=== PATIENT | female | born 1945 | race Two or more races ===

== ENCOUNTER 2016-09-27 07:24 | Emergency (ER) | payer OTHER ==
[~2016-09-27] VITALS: Ht 160 cm; Wt 84.1 kg
[~2016-09-27 07:24] MED LIST: ALB5IS NEB; Alprazolam PO; BENZ100C97 PO; GABA-339 PO; IPRA0.035; LEV500T PO; MELO-86 PO; METH4PAK PO; PANT1INJ3 PO; PROM25TA5 PO; ZOLP10TA6
[2016-09-27] MEDS ORDERED: traMADol HCL 50 MG TAB PO ONE (10:45)
[2016-09-27] MEDS ORDERED: KETOROLAC TROMETH 30 MG/ML 1ML VIAL IM ONE (10:45)
[2016-09-27 10:56] VITALS: BP 143/74
== END 2016-09-27 11:18 | disposition home or self-care (01) ==
LOC: ER 07:24
DX: G89.29 Other chronic pain (principal); M54.5 Low back pain; Z88.6 Allergy status to analgesic agent; Z87.891 Personal history of nicotine dependence
CPT/HCPCS: 96372; 99283; J1885

== ENCOUNTER 2017-04-10 16:23 | Emergency (ER) | payer OTHER ==
[~2017-04-10] VITALS: Ht 160 cm; Wt 79.8 kg
[2017-04-10 16:31] VITALS: BP 133/72
[2017-04-10] MEDS ORDERED: PROMETHAZINE HCL 25 MG/ML 1ML IM ONE (17:15)
[2017-04-10] MEDS ORDERED: MEPERIDINE HCL (50 MG/ML) 1 ML VIAL IM ONE (17:15)
== END 2017-04-10 18:02 | disposition home or self-care (01) ==
LOC: ER 16:26
DX: G89.29 Other chronic pain (principal); M54.5 Low back pain; Z79.899 Other long term (current) drug therapy; Z88.8 Allergy status to other drugs, medicaments and biological substances; I10 Essential (primary) hypertension; Z87.891 Personal history of nicotine dependence
CPT/HCPCS: 93005; 96372; 99284; J2175; J2550

== ENCOUNTER 2017-07-09 13:16 | Emergency (ER) | payer OTHER ==
[~2017-07-09] VITALS: Ht 160 cm; Wt 77.1 kg
[~2017-07-09 13:16] MED LIST changes: -MELO-86 PO; +MELO15TA4 PO
[2017-07-09 13:27] VITALS: BP 125/65
[2017-07-09] MEDS ORDERED: KETOROLAC TROMETH 60MG/2ML VIAL IM ONE (14:45)
== END 2017-07-09 15:02 | disposition home or self-care (01) ==
LOC: ER 13:16
DX: G89.29 Other chronic pain (principal); M54.5 Low back pain; I10 Essential (primary) hypertension; Z88.6 Allergy status to analgesic agent; Z87.891 Personal history of nicotine dependence
CPT/HCPCS: 96372; 99283; J1885

== ENCOUNTER 2017-08-30 10:59 | Emergency (ER) | payer OTHER ==
[~2017-08-30] VITALS: Ht 160 cm; Wt 81.6 kg
[2017-08-30 11:40] VITALS: BP 107/70
[2017-08-30] MEDS ORDERED: PROMETHAZINE HCL 25 MG/ML 1ML IM ONE (12:30)
[2017-08-30] MEDS ORDERED: MEPERIDINE HCL (50 MG/ML) 1 ML VIAL IM ONE (12:30)
== END 2017-08-30 13:07 | disposition home or self-care (01) ==
LOC: ER 10:59
DX: G89.29 Other chronic pain (principal); M54.5 Low back pain; I10 Essential (primary) hypertension; Z98.51 Tubal ligation status; Z87.891 Personal history of nicotine dependence; Z88.6 Allergy status to analgesic agent
CPT/HCPCS: 93005; 96372; 99284; J2175; J2550

== ENCOUNTER 2017-11-02 08:02 | Observation (INO) | payer OTHER ==
[~2017-11-02] VITALS: Ht 160 cm; Wt 74.4 kg
[~2017-11-02 08:02] MED LIST changes: -MELO15TA4 PO; +MELO1TAB56 PO
[2017-11-02 08:35] LABS: Basophils # (auto) 0 uL; Basophils % (auto) 0.4 % (0.0-2.0); Eosinophils # (auto) 0 uL; Hematocrit 45.4 % (36.0-46.0); Hemoglobin 14.7 g/dL (12.2-16.2); Lymphocytes # (auto) 1.5 uL; Lymphocytes % (auto) 41.7 % (10.0-50.0); Mean Corpuscular Hemoglobin 28.7 pg (28.0-32.0); Mean Corpuscular Hgb Conc. 32.4 g/dL (32.0-36.0); Mean Corpuscular Volume 88.5 fL (80.0-100.0); Monocytes # (auto) 0.3 uL; Neutrophils # (auto) 1.7 uL; Neutrophils % (auto) 47.9 % (37.0-80.0); Nucleated Red Blood Cells % 0.7 %; Platelet Count (auto) 233 10^3/uL (140-450); Red Blood Cells 5.13 10^6/uL (4.0-5.20); Red Cell Distribution Width 14.7 % (11.8-14.3); White Blood Cell 3.5 10^3/uL (4.4-10.8)
[2017-11-02 08:46] LABS: Alanine Aminotransferase 17 U/L (13-56); Albumin 4.2 g/dL (3.4-5.0); Amylase 35 U/L (25-115); Anion Gap 11 (5-15); Aspartate Aminotransferase 17 U/L (15-37); Blood Urea Nitrogen 9 mg/dL (7-18); Calcium 9.3 mg/dL (8.5-10.1); Carbon Dioxide 22 mmol/L (21-32); Chloride 106 mmol/L (98-107); GFR African American 108 mL/min; GFR Non-African American 89 mL/min; Glucose 89 mg/dL (74-106); Lipase 107 U/L (73-393); Potassium 3.6 mmol/L (3.5-5.1); Sodium 139 mmol/L (136-145)
[2017-11-02 08:51] LABS: Alkaline Phosphatase 76 U/L (45-117); Bilirubin, Total 0.9 mg/dL (0.2-1.0); Total Protein 8.3 g/dL (6.4-8.2)
[2017-11-02 10:23] LABS: Urine Bacteria FEW /hpf (None Seen); Urine Blood Negative /uL (Negative); Urine Specific Gravity 1.006 (1.001-1.035); Urine WBC <1 /hpf (0 - 5)
[2017-11-02] MEDS ORDERED: SODIUM CHLORIDE 0.9% 1,000 ML IVB ONE (11:19)
[2017-11-02] MEDS ORDERED: ONDANSETRON HCL 4 MG/2 ML VIAL IV ONE (11:30)
[2017-11-02 12:08] LABS: INR 0.99 (0.9-1.15); Partial Thromboplastin Time 30.8 sec (22.64-33.71); Prothrombin Time 10.8 sec (9.37-12.3)
[2017-11-02 14:22] VITALS: BP 149/91
== END 2017-11-02 15:36 | disposition home or self-care (01) | DRG 392 ==
LOC: ER 08:02 → OVERFLOW 11:24 → ER 15:36
PROVIDERS: ADMIT Family Medicine; ATTEND Family Medicine
DX: K52.9 Noninfective gastroenteritis and colitis, unspecified (principal); I10 Essential (primary) hypertension; J45.909 Unspecified asthma, uncomplicated; K21.9 Gastro-esophageal reflux disease without esophagitis; Z87.891 Personal history of nicotine dependence
CPT/HCPCS: 36415; 71045; 74176; 80053; 81001; 82150; 83690; 83735; 84484; 85025; 85610; 85730; 93005; 96361; 96374; 99285; G0378; J2405

== ENCOUNTER 2018-01-08 06:07 | Inpatient (IN) | payer OTHER ==
[~2018-01-08] VITALS: Ht 160 cm; Wt 79.3 kg
[~2018-01-08 06:07] MED LIST changes: -ZOLP10TA6; +ZOLP10TA6 PO
[2018-01-08 08:04] LABS: Basophils # (auto) 0 uL; Eosinophils # (auto) 0.1 uL; Eosinophils % (auto) 2.4 % (0.0-7.0); Hematocrit 41.5 % (36.0-46.0); Hemoglobin 13.4 g/dL (12.2-16.2); Lymphocytes # (auto) 1.7 uL; Lymphocytes % (auto) 50.1 % (10.0-50.0); Mean Corpuscular Hemoglobin 28.8 pg (28.0-32.0); Mean Corpuscular Hgb Conc. 32.4 g/dL (32.0-36.0); Mean Corpuscular Volume 89.1 fL (80.0-100.0); Monocytes # (auto) 0.3 uL; Monocytes % (auto) 9.8 % (0.0-12.0); Neutrophils # (auto) 1.2 uL; Neutrophils % (auto) 36.7 % (37.0-80.0); Nucleated Red Blood Cells % 0.1 %; Platelet Count (auto) 221 10^3/uL (140-450); Red Blood Cells 4.66 10^6/uL (4.0-5.20); Red Cell Distribution Width 14.3 % (11.8-14.3); White Blood Cell 3.4 10^3/uL (4.4-10.8)
[2018-01-08 08:27] LABS: INR 0.98 (0.9-1.15); Prothrombin Time 10.7 sec (9.37-12.3)
[2018-01-08 08:29] LABS: Alanine Aminotransferase 17 U/L (13-56); Albumin 3.8 g/dL (3.4-5.0); Alkaline Phosphatase 73 U/L (45-117); Amylase 36 U/L (25-115); Anion Gap 10 (5-15); Aspartate Aminotransferase 14 U/L (15-37); BUN/Creatinine Ratio 10.3; Bilirubin, Total 0.7 mg/dL (0.2-1.0); Blood Urea Nitrogen 8 mg/dL (7-18); Calcium 9.2 mg/dL (8.5-10.1); Carbon Dioxide 24 mmol/L (21-32); Chloride 109 mmol/L (98-107); GFR African American 94 mL/min; GFR Non-African American 77 mL/min; Glucose 80 mg/dL (74-106); Lipase 94 U/L (73-393); Potassium 3.6 mmol/L (3.5-5.1); Sodium 143 mmol/L (136-145); Total Protein 7.7 g/dL (6.4-8.2)
[2018-01-08] MEDS ORDERED: SODIUM CHLORIDE 0.9% 1,000 ML IV ONE (10:57)
[2018-01-08] MEDS ORDERED: ONDANSETRON HCL 4 MG/2 ML VIAL IV ONE ×2 (11:00→15:00)
[2018-01-08] MEDS ORDERED: HYDROcodone-ACET 10/325MG TAB PO ONE (12:45)
[2018-01-08] MEDS ORDERED: MORPHINE SULFATE 8mg/ml INJ SDV IV ONE (15:00)
[2018-01-08] MEDS: FAMOTIDINE (10MG/ML) 2ML VL IV SCH (15:15)
[2018-01-08] MEDS ORDERED: MORPHINE SULFATE 8mg/ml INJ SDV IV PRN (15:15)
[2018-01-08] MEDS ORDERED: NITROGLYCERIN 0.4 MG SL TAB SL PRN (15:15)
[2018-01-08] MEDS ORDERED: LORazepam 0.5 MG TAB PO PRN (15:15)
[2018-01-08] MEDS: SODIUM CHLORIDE 0.9% 1,000 ML IV SCH (15:28)
[2018-01-08 15:41] LABS: Urine Bacteria FEW /hpf (None Seen); Urine Blood Negative /uL (Negative); Urine Mucus FEW (None Seen); Urine Specific Gravity 1.013 (1.001-1.035); Urine WBC 1 /hpf (0 - 5)
[2018-01-08 17:00] VITALS: BP 154/77
[2018-01-08] MEDS ORDERED: ALBU2TAB4 PO (18:18)
[2018-01-08] MEDS: TEMAZEPAM 15 MG CAP PO PRN (21:52)
[2018-01-08] MEDS: ACETAMINOPHEN 500 MG TAB PO PRN (22:45)
[2018-01-09] VITALS (7 sets, daily range): BP systolic 95–160; BP diastolic 55–92
[2018-01-09] MEDS: SODIUM CHLORIDE 0.9% 1,000 ML IV SCH ×3 (01:21→21:50)
[2018-01-09] MEDS: PROMETHAZINE HCL 25 MG/ML 1ML IV PRN ×4 (02:59→21:50)
[2018-01-09] MEDS: HYDROcodone-ACET 5/325MG TAB PO PRN (03:00)
[2018-01-09] MEDS: FAMOTIDINE (10MG/ML) 2ML VL IV SCH (03:00)
[2018-01-09 05:56] LABS: Basophils # (auto) 0 uL; Basophils % (auto) 0.9 % (0.0-2.0); Eosinophils # (auto) 0.1 uL; Eosinophils % (auto) 2.6 % (0.0-7.0); Hematocrit 40.1 % (36.0-46.0); Lymphocytes # (auto) 1.5 uL; Lymphocytes % (auto) 42.1 % (10.0-50.0); Mean Corpuscular Hemoglobin 29.4 pg (28.0-32.0); Mean Corpuscular Hgb Conc. 32.5 g/dL (32.0-36.0); Mean Corpuscular Volume 90.4 fL (80.0-100.0); Monocytes # (auto) 0.4 uL; Monocytes % (auto) 11.3 % (0.0-12.0); Neutrophils # (auto) 1.5 uL; Neutrophils % (auto) 43.1 % (37.0-80.0); Nucleated Red Blood Cells % 0.2 %; Platelet Count (auto) 186 10^3/uL (140-450); Red Blood Cells 4.43 10^6/uL (4.0-5.20); Red Cell Distribution Width 14.6 % (11.8-14.3); White Blood Cell 3.5 10^3/uL (4.4-10.8)
[2018-01-09 06:12] LABS: Amylase 28 U/L (25-115); Lipase 67 U/L (73-393)
[2018-01-09] MEDS: MORPHINE SULFATE 8mg/ml INJ SDV IV PRN (06:56)
[2018-01-09] MEDS ORDERED: IBUP400T21 PO (08:29)
[2018-01-09] MEDS ORDERED: LORA-655 PO (08:30)
[2018-01-09] MEDS ORDERED: METO-281 PO (08:31)
[2018-01-09] MEDS ORDERED: ATOR10TA PO (08:31)
[2018-01-09] MEDS: PANTOPRAZOLE 40 MG/10 ML VIAL IV SCH (21:50)
[2018-01-09] MEDS: TEMAZEPAM 15 MG CAP PO PRN (21:51)
[2018-01-10] MEDS: HYDROcodone-ACET 5/325MG TAB PO PRN (02:38)
[2018-01-10 04:59] VITALS: BP 138/69
[2018-01-10 06:44] LABS: Basophils # (auto) 0 uL; Basophils % (auto) 0.9 % (0.0-2.0); Eosinophils # (auto) 0.1 uL; Eosinophils % (auto) 3.5 % (0.0-7.0); Hematocrit 39.6 % (36.0-46.0); Hemoglobin 12.8 g/dL (12.2-16.2); Lymphocytes # (auto) 1.4 uL; Lymphocytes % (auto) 37.9 % (10.0-50.0); Mean Corpuscular Hemoglobin 29.3 pg (28.0-32.0); Mean Corpuscular Hgb Conc. 32.3 g/dL (32.0-36.0); Mean Corpuscular Volume 90.8 fL (80.0-100.0); Monocytes # (auto) 0.4 uL; Monocytes % (auto) 12.1 % (0.0-12.0); Neutrophils # (auto) 1.7 uL; Neutrophils % (auto) 45.6 % (37.0-80.0); Nucleated Red Blood Cells % 0.1 %; Platelet Count (auto) 171 10^3/uL (140-450); Red Blood Cells 4.36 10^6/uL (4.0-5.20); Red Cell Distribution Width 14.5 % (11.8-14.3); White Blood Cell 3.7 10^3/uL (4.4-10.8)
[2018-01-10 07:02] LABS: BUN/Creatinine Ratio 11.5; Potassium 3.3 mmol/L (3.5-5.1)
[2018-01-10 08:21] VITALS: BP 128/50
[2018-01-10] MEDS: POTASSIUM CHL 20 Meq TABLET PO SCH ×2 (11:06→22:36)
[2018-01-10] MEDS: PANTOPRAZOLE 40 MG/10 ML VIAL IV SCH ×2 (11:06→22:35)
[2018-01-10 12:41] VITALS: BP 134/89
[2018-01-10] MEDS: PROMETHAZINE HCL 25 MG/ML 1ML IV PRN (14:22)
[2018-01-10] MEDS: GABAPENTIN 300 MG CAP PO SCH ×2 (14:23→22:36)
[2018-01-10 16:32] VITALS: BP 159/94
[2018-01-10 22:00] VITALS: BP 105/56
[2018-01-10] MEDS: ATORVASTATIN 20 MG TAB PO SCH (22:37)
[2018-01-10] MEDS: TEMAZEPAM 15 MG CAP PO PRN (22:42)
[2018-01-11 05:00] VITALS: BP 114/67
[2018-01-11] MEDS: GABAPENTIN 300 MG CAP PO SCH ×3 (06:00→21:43)
[2018-01-11 07:08] LABS: Basophils # (auto) 0 uL; Basophils % (auto) 1.1 % (0.0-2.0); Eosinophils # (auto) 0.1 uL; Eosinophils % (auto) 3.8 % (0.0-7.0); Hematocrit 41.1 % (36.0-46.0); Hemoglobin 13.3 g/dL (12.2-16.2); Lymphocytes # (auto) 1.2 uL; Lymphocytes % (auto) 30.3 % (10.0-50.0); Mean Corpuscular Hemoglobin 29.4 pg (28.0-32.0); Mean Corpuscular Hgb Conc. 32.4 g/dL (32.0-36.0); Mean Corpuscular Volume 90.8 fL (80.0-100.0); Monocytes # (auto) 0.4 uL; Monocytes % (auto) 10.8 % (0.0-12.0); Neutrophils # (auto) 2.1 uL; Nucleated Red Blood Cells % 0.1 %; Platelet Count (auto) 175 10^3/uL (140-450); Red Blood Cells 4.52 10^6/uL (4.0-5.20); Red Cell Distribution Width 14.5 % (11.8-14.3); White Blood Cell 3.9 10^3/uL (4.4-10.8)
[2018-01-11 07:30] LABS: Calcium 8.7 mg/dL (8.5-10.1); Potassium 4.5 mmol/L (3.5-5.1)
[2018-01-11 08:11] VITALS: BP 125/72
[2018-01-11] MEDS: PANTOPRAZOLE 40 MG/10 ML VIAL IV SCH ×2 (10:22→21:43)
[2018-01-11] MEDS ORDERED: DOCUSATE SOD 100 MG CAP PO PRN (10:30)
[2018-01-11] MEDS: ACETAMINOPHEN 500 MG TAB PO PRN (11:01)
[2018-01-11 12:30] VITALS: BP 109/54
[2018-01-11 16:59] VITALS: BP 110/56
[2018-01-11] MEDS: ATORVASTATIN 20 MG TAB PO SCH (21:43)
[2018-01-11] MEDS: TEMAZEPAM 15 MG CAP PO PRN (21:43)
[2018-01-11 22:00] VITALS: BP 116/59
[2018-01-12] VITALS (7 sets, daily range): BP systolic 98–133; BP diastolic 54–86
[2018-01-12 06:18] LABS: Basophils # (auto) 0 uL; Basophils % (auto) 0.5 % (0.0-2.0); Eosinophils # (auto) 0.1 uL; Eosinophils % (auto) 3.6 % (0.0-7.0); Hematocrit 44.2 % (36.0-46.0); Hemoglobin 14.3 g/dL (12.2-16.2); Lymphocytes # (auto) 1.5 uL; Lymphocytes % (auto) 44.5 % (10.0-50.0); Mean Corpuscular Hemoglobin 29.5 pg (28.0-32.0); Mean Corpuscular Hgb Conc. 32.4 g/dL (32.0-36.0); Monocytes # (auto) 0.3 uL; Monocytes % (auto) 8.2 % (0.0-12.0); Neutrophils # (auto) 1.4 uL; Neutrophils % (auto) 43.2 % (37.0-80.0); Nucleated Red Blood Cells % 0.2 %; Platelet Count (auto) 199 10^3/uL (140-450); Red Blood Cells 4.85 10^6/uL (4.0-5.20); Red Cell Distribution Width 14.7 % (11.8-14.3); White Blood Cell 3.3 10^3/uL (4.4-10.8)
[2018-01-12] MEDS: GABAPENTIN 300 MG CAP PO SCH ×3 (06:23→22:22)
[2018-01-12 06:26] LABS: INR 0.94 (0.9-1.15); Partial Thromboplastin Time 27.1 sec (22.64-33.71); Prothrombin Time 10.2 sec (9.37-12.3)
[2018-01-12 06:37] LABS: BUN/Creatinine Ratio 15.2; Calcium 9.4 mg/dL (8.5-10.1); Potassium 4.3 mmol/L (3.5-5.1)
[2018-01-12] MEDS ORDERED: LIDOCAINE VISCOUS 2% 15ML UD ONE (08:16)
[2018-01-12] MEDS ORDERED: diphenhdrAMINE HCL 50 MG/1 ML VL ONE (08:17)
[2018-01-12] MEDS: PANTOPRAZOLE 40 MG/10 ML VIAL IV SCH (09:35)
[2018-01-12] MEDS: fentaNYL CITRATE 100 MCG/2 ML VL ONE ×2 (11:10→11:13)
[2018-01-12] MEDS: MIDAZOLAM HCL 5 MG/ML-1ML VIAL ONE ×2 (11:10→11:13)
[2018-01-12] MEDS: TEMAZEPAM 15 MG CAP PO PRN (22:22)
[2018-01-12] MEDS: ATORVASTATIN 20 MG TAB PO SCH (22:22)
[2018-01-12] MEDS: PROMETHAZINE HCL 25 MG/ML 1ML IV PRN (22:27)
[2018-01-13 04:34] VITALS: BP 115/65
[2018-01-13] MEDS: MORPHINE SULFATE 8mg/ml INJ SDV IV PRN (04:43)
[2018-01-13] MEDS: PROMETHAZINE HCL 25 MG/ML 1ML IV PRN (04:43)
[2018-01-13] MEDS: GABAPENTIN 300 MG CAP PO SCH (06:48)
[2018-01-13 08:00] VITALS: BP 97/61
[2018-01-13] MEDS: HYDROcodone-ACET 5/325MG TAB PO PRN (09:28)
[2018-01-13] MEDS ORDERED: PANTOPRAZOLE 40 MG TAB PO SCH (10:00)
[2018-01-13 12:15] VITALS: BP 96/54
== END 2018-01-13 13:41 | disposition home or self-care (01) | DRG 392 ==
LOC: ER 06:07 → TELE 06:08 → TELE-CENTR 16:19
PROVIDERS: ADMIT Internal Medicine; ATTEND Internal Medicine
PROC: 0DB68ZX Excision of Stomach, Via Natural or Artificial Opening Endoscopic, Diagnostic (ICD-10-PCS; principal; 2018-01-12 11:07)
DX: K31.84 Gastroparesis (principal); D72.819 Decreased white blood cell count, unspecified; F41.9 Anxiety disorder, unspecified; I10 Essential (primary) hypertension; J45.909 Unspecified asthma, uncomplicated; K21.9 Gastro-esophageal reflux disease without esophagitis; K29.70 Gastritis, unspecified, without bleeding; Z82.49 Family history of ischemic heart disease and other diseases of the circulatory system; Z98.51 Tubal ligation status; Z83.3 Family history of diabetes mellitus; Z87.891 Personal history of nicotine dependence; Z79.899 Other long term (current) drug therapy
CPT/HCPCS: 36415; 71045; 74176; 76705; 80048; 80053; 81001; 82150; 82378; 82962; 83690; 84484; 85025; 85610; 85652; 85730; 86141; 86677; 93005; 96361; 96367; 96374; 96375; C9113; J2250; J2270; J2405

== ENCOUNTER 2018-03-05 02:41 | Inpatient (IN) | payer OTHER ==
[~2018-03-05] VITALS: Ht 160 cm; Wt 75.1 kg
[~2018-03-05 02:41] MED LIST changes: -ALB5IS NEB; +ATOR10TA PO; -Alprazolam PO; -BENZ100C97 PO; +IBUP400T21 PO; -IPRA0.035; -LEV500T PO; +LORA-655 PO; -MELO1TAB56 PO; -METH4PAK PO; +METO-281 PO; -PANT1INJ3 PO; -PROM25TA5 PO
[2018-03-05 03:50] LABS: Basophils # (auto) 0 uL; Basophils % (auto) 0.7 % (0.0-2.0); Eosinophils # (auto) 0.1 uL; Eosinophils % (auto) 2.6 % (0.0-7.0); Hematocrit 40.8 % (36.0-46.0); Hemoglobin 13.3 g/dL (12.2-16.2); Lymphocytes # (auto) 1.4 uL; Lymphocytes % (auto) 40.4 % (10.0-50.0); Mean Corpuscular Hgb Conc. 32.6 g/dL (32.0-36.0); Mean Corpuscular Volume 88.9 fL (80.0-100.0); Monocytes # (auto) 0.4 uL; Neutrophils # (auto) 1.6 uL; Neutrophils % (auto) 45.3 % (37.0-80.0); Nucleated Red Blood Cells % 0.1 %; Platelet Count (auto) 233 10^3/uL (140-450); Red Blood Cells 4.59 10^6/uL (4.0-5.20); Red Cell Distribution Width 14.4 % (11.8-14.3); White Blood Cell 3.4 10^3/uL (4.4-10.8)
[2018-03-05 04:07] LABS: Alanine Aminotransferase 26 U/L (13-56); Albumin 3.5 g/dL (3.4-5.0); Amylase 27 U/L (25-115); Anion Gap 10 (5-15); Aspartate Aminotransferase 15 U/L (15-37); BUN/Creatinine Ratio 7.6; Blood Urea Nitrogen 7 mg/dL (7-18); Calcium 8.8 mg/dL (8.5-10.1); Carbon Dioxide 28 mmol/L (21-32); Chloride 107 mmol/L (98-107); GFR African American 77 mL/min; GFR Non-African American 64 mL/min; Glucose 88 mg/dL (74-106); Lipase 79 U/L (73-393); Magnesium 2.3 mg/dL (1.6-2.6); Potassium 4.1 mmol/L (3.5-5.1); Sodium 145 mmol/L (136-145)
[2018-03-05 04:13] LABS: Alkaline Phosphatase 79 U/L (45-117); Bilirubin, Total 0.6 mg/dL (0.2-1.0); Total Protein 7.3 g/dL (6.4-8.2)
[2018-03-05 04:22] LABS: Urine Bacteria NONE SEEN /hpf (None Seen); Urine Blood Negative /uL (Negative); Urine Specific Gravity 1.013 (1.001-1.035); Urine WBC 1 /hpf (0 - 5)
[2018-03-05] MEDS: SODIUM CHLORIDE 0.9% 1,000 ML IV SCH ×2 (09:54→19:54)
[2018-03-05] MEDS ORDERED: NITROGLYCERIN 0.4 MG SL TAB SL PRN (10:00)
[2018-03-05] MEDS ORDERED: MORPHINE SULF(PF) 0.5MG/ML 10ML VIAL IV PRN (10:00)
[2018-03-05] MEDS ORDERED: HYDROcodone-ACET 5/325MG TAB PO PRN (10:00)
[2018-03-05] MEDS ORDERED: ACETAMINOPHEN 500 MG TAB PO PRN (10:00)
[2018-03-05] MEDS ORDERED: LORazepam 0.5 MG TAB PO PRN (10:00)
[2018-03-05] MEDS ORDERED: KETOROLAC TROMETH 30 MG/ML 1ML VIAL IV ONE (10:00)
[2018-03-05] MEDS ORDERED: cefTRIAXone 1GM/10ml IVPUSH 10 ML IV ONE (10:00)
[2018-03-05] MEDS: metroNIDAZOLE 500MG/100ML 100 ML IV SCH ×2 (11:08→18:06)
[2018-03-05] MEDS: PROMETHAZINE HCL 25 MG/ML 1ML IV PRN (12:35)
[2018-03-05] MEDS: NALBUPHINE HCL 10 MG/1ml INJECTION IV PRN (12:35)
[2018-03-05 17:00] VITALS: BP 161/87
[2018-03-05] MEDS: LACTULOSE 20Gm/30ML SOLN PO PRN (19:18)
[2018-03-05] MEDS: ONDANSETRON HCL 4 MG/2 ML VIAL IV PRN (22:10)
[2018-03-05] MEDS: TEMAZEPAM 15 MG CAP PO PRN (22:10)
[2018-03-05 22:19] VITALS: BP 121/68
[2018-03-06] VITALS (7 sets, daily range): BP systolic 126–164; BP diastolic 75–99
[2018-03-06] MEDS: metroNIDAZOLE 500MG/100ML 100 ML IV SCH ×5 (00:27→23:51)
[2018-03-06] MEDS: PROMETHAZINE HCL 25 MG/ML 1ML IV PRN ×4 (01:53→21:46)
[2018-03-06] MEDS: SODIUM CHLORIDE 0.9% 1,000 ML IV SCH ×3 (05:42→20:53)
[2018-03-06 06:21] LABS: Basophils # (auto) 0 uL; Basophils % (auto) 1.3 % (0.0-2.0); Eosinophils # (auto) 0.1 uL; Eosinophils % (auto) 3.2 % (0.0-7.0); Hematocrit 41.6 % (36.0-46.0); Hemoglobin 13.6 g/dL (12.2-16.2); Lymphocytes # (auto) 1.2 uL; Lymphocytes % (auto) 39.7 % (10.0-50.0); Mean Corpuscular Hemoglobin 29.3 pg (28.0-32.0); Mean Corpuscular Hgb Conc. 32.6 g/dL (32.0-36.0); Mean Corpuscular Volume 89.7 fL (80.0-100.0); Monocytes # (auto) 0.3 uL; Neutrophils # (auto) 1.4 uL; Neutrophils % (auto) 44.8 % (37.0-80.0); Nucleated Red Blood Cells % 0.2 %; Platelet Count (auto) 234 10^3/uL (140-450); Red Blood Cells 4.63 10^6/uL (4.0-5.20); Red Cell Distribution Width 14.7 % (11.8-14.3); White Blood Cell 3.1 10^3/uL (4.4-10.8)
[2018-03-06] MEDS: cefTRIAXone 1GM/10ml IVPUSH 10 ML IV SCH (10:07)
[2018-03-06] MEDS ORDERED: FLU220IH (12:07)
[2018-03-06] MEDS ORDERED: CIPR-217 (12:07)
[2018-03-06] MEDS ORDERED: PANT1INJ3 PO (12:07)
[2018-03-06] MEDS ORDERED: METO25TA62 (12:07)
[2018-03-06] MEDS ORDERED: LORA1TAB12 PO (12:07)
[2018-03-06] MEDS: LACTULOSE 20Gm/30ML SOLN PO PRN (13:14)
[2018-03-06] MEDS: NALBUPHINE HCL 10 MG/1ml INJECTION IV PRN ×2 (13:14→21:46)
[2018-03-06] MEDS: ONDANSETRON HCL 4 MG/2 ML VIAL IV PRN (20:33)
[2018-03-06] MEDS: TEMAZEPAM 15 MG CAP PO PRN (22:41)
[2018-03-07] MEDS: metroNIDAZOLE 500MG/100ML 100 ML IV SCH ×4 (06:21→23:36)
[2018-03-07 09:00] VITALS: BP 115/72
[2018-03-07] MEDS: cefTRIAXone 1GM/10ml IVPUSH 10 ML IV SCH (09:42)
[2018-03-07] MEDS: SODIUM CHLORIDE 0.9% 1,000 ML IV SCH ×2 (11:02→21:54)
[2018-03-07] MEDS: NALBUPHINE HCL 10 MG/1ml INJECTION IV PRN (11:03)
[2018-03-07] MEDS: ONDANSETRON HCL 4 MG/2 ML VIAL IV PRN ×2 (11:03→16:59)
[2018-03-07 13:00] VITALS: BP 160/84
[2018-03-07] MEDS: PROMETHAZINE HCL 25 MG/ML 1ML IV PRN ×2 (13:30→20:04)
[2018-03-07 17:00] VITALS: BP 149/80
[2018-03-07 20:00] VITALS: BP 145/76
[2018-03-07 21:38] VITALS: BP 145/76
[2018-03-07] MEDS: TEMAZEPAM 15 MG CAP PO PRN (22:46)
[2018-03-08] MEDS ORDERED: D5W/SOD CHL 0.45%/KCL 20MEQ 1,000 ML IV ONE ×2 (05:00→19:45)
[2018-03-08 05:31] VITALS: BP 157/77
[2018-03-08] MEDS: metroNIDAZOLE 500MG/100ML 100 ML IV SCH ×4 (05:51→23:46)
[2018-03-08 09:00] VITALS: BP 125/74
[2018-03-08] MEDS: cefTRIAXone 1GM/10ml IVPUSH 10 ML IV SCH (09:33)
[2018-03-08] MEDS ORDERED: GOLYTELY 4L KIT PO ONE (12:00)
[2018-03-08 13:00] VITALS: BP 124/95
[2018-03-08] MEDS: NALBUPHINE HCL 10 MG/1ml INJECTION IV PRN ×2 (13:06→20:09)
[2018-03-08] MEDS: PROMETHAZINE HCL 25 MG/ML 1ML IV PRN ×3 (13:06→22:25)
[2018-03-08 17:00] VITALS: BP 142/89
[2018-03-08 20:00] VITALS: BP 141/74
[2018-03-08] MEDS: ONDANSETRON HCL 4 MG/2 ML VIAL IV PRN (20:09)
[2018-03-08 22:00] VITALS: BP 141/74
[2018-03-08] MEDS: TEMAZEPAM 15 MG CAP PO PRN (23:46)
[2018-03-09] MEDS: ONDANSETRON HCL 4 MG/2 ML VIAL IV PRN ×2 (00:02→08:57)
[2018-03-09] MEDS ORDERED: GOLYTELY 4L KIT PO ONE (04:00)
[2018-03-09 05:00] VITALS: BP 158/77
[2018-03-09] MEDS: metroNIDAZOLE 500MG/100ML 100 ML IV SCH (06:08)
[2018-03-09 06:43] LABS: Basophils # (auto) 0 uL; Basophils % (auto) 0.8 % (0.0-2.0); Eosinophils # (auto) 0.1 uL; Eosinophils % (auto) 2.5 % (0.0-7.0); Hemoglobin 14.7 g/dL (12.2-16.2); Lymphocytes # (auto) 1.5 uL; Lymphocytes % (auto) 37.6 % (10.0-50.0); Mean Corpuscular Hemoglobin 29.8 pg (28.0-32.0); Mean Corpuscular Hgb Conc. 33.5 g/dL (32.0-36.0); Monocytes # (auto) 0.4 uL; Monocytes % (auto) 10.1 % (0.0-12.0); Platelet Count (auto) 231 10^3/uL (140-450); Red Blood Cells 4.94 10^6/uL (4.0-5.20); Red Cell Distribution Width 14.7 % (11.8-14.3); White Blood Cell 4.1 10^3/uL (4.4-10.8)
[2018-03-09 06:59] LABS: Chloride 106 mmol/L (98-107); Potassium 3.2 mmol/L (3.5-5.1); Sodium 144 mmol/L (136-145)
[2018-03-09 07:04] LABS: INR 1.12 (0.9-1.15); Partial Thromboplastin Time 31.6 sec (23.78-33.04); Prothrombin Time 11.9 sec (9.27-12.13)
[2018-03-09 07:06] LABS: Alanine Aminotransferase 25 U/L (13-56); Albumin 3.7 g/dL (3.4-5.0); Anion Gap 13 (5-15); Aspartate Aminotransferase 25 U/L (15-37); BUN/Creatinine Ratio 6.2; Blood Urea Nitrogen 4 mg/dL (7-18); Calcium 8.5 mg/dL (8.5-10.1); Carbon Dioxide 25 mmol/L (21-32); GFR African American 116 mL/min; GFR Non-African American 96 mL/min; Glucose 97 mg/dL (74-106)
[2018-03-09 07:09] LABS: Alkaline Phosphatase 71 U/L (45-117); Bilirubin, Total 0.8 mg/dL (0.2-1.0); Total Protein 7.7 g/dL (6.4-8.2)
[2018-03-09] MEDS ORDERED: D5W/SOD CHL 0.45%/KCL 40MEQ 1,000 ML IV ONE (07:45)
[2018-03-09] MEDS ORDERED: POTASSIUM CHL 20MEQ/100ML 100 ML IV SCH (07:45)
[2018-03-09] MEDS ORDERED: SODIUM CHLORIDE LOCK 10 ML ONE (08:09)
[2018-03-09] MEDS ORDERED: diphenhdrAMINE HCL 50 MG/1 ML VL ONE (08:12)
[2018-03-09 08:32] VITALS: BP 141/76
[2018-03-09] MEDS: MIDAZOLAM HCL 5 MG/ML-1ML VIAL ONE ×6 (11:48→12:05)
[2018-03-09] MEDS: fentaNYL CITRATE 100 MCG/2 ML VL ONE ×6 (11:48→12:05)
[2018-03-09 13:00] VITALS: BP 149/84
[2018-03-09 17:00] VITALS: BP 128/76
[2018-03-09 17:18] VITALS: BP 128/76
== END 2018-03-09 18:57 | disposition home or self-care (01) | DRG 392 ==
LOC: ER 02:43 → TELE 02:44 → TELE-WESTW 16:47
PROVIDERS: ADMIT Internal Medicine; ATTEND Internal Medicine
PROC: 0DJD8ZZ Inspection of Lower Intestinal Tract, Via Natural or Artificial Opening Endoscopic (ICD-10-PCS; principal; 2018-03-09 11:46)
DX: K59.00 Constipation, unspecified (principal); K64.8 Other hemorrhoids; K52.9 Noninfective gastroenteritis and colitis, unspecified; E78.00 Pure hypercholesterolemia, unspecified; K57.30 Diverticulosis of large intestine without perforation or abscess without bleeding; F41.9 Anxiety disorder, unspecified; I10 Essential (primary) hypertension; D72.819 Decreased white blood cell count, unspecified; I27.21 Secondary pulmonary arterial hypertension; J45.909 Unspecified asthma, uncomplicated; K21.9 Gastro-esophageal reflux disease without esophagitis; Z80.0 Family history of malignant neoplasm of digestive organs; Z80.1 Family history of malignant neoplasm of trachea, bronchus and lung; Z80.3 Family history of malignant neoplasm of breast; Z80.41 Family history of malignant neoplasm of ovary; Z80.8 Family history of malignant neoplasm of other organs or systems; Z82.0 Family history of epilepsy and other diseases of the nervous system; Z82.3 Family history of stroke; Z82.49 Family history of ischemic heart disease and other diseases of the circulatory system; Z83.3 Family history of diabetes mellitus; Z98.51 Tubal ligation status; Z88.8 Allergy status to other drugs, medicaments and biological substances; Z79.899 Other long term (current) drug therapy
CPT/HCPCS: 36415; 74176; 80053; 81001; 82150; 82378; 83690; 83735; 84484; 85025; 85610; 85652; 85730; 86850; 86900; 86901; 93005; 96365; 96375; J1885; J2250; J2405; J3490

== ENCOUNTER 2018-08-30 11:40 | Emergency (ER) | payer OTHER ==
[~2018-08-30] VITALS: Ht 160 cm; Wt 80.7 kg
[~2018-08-30 11:40] MED LIST changes: +FLU220IH; -IBUP400T21 PO; -LORA-655 PO; +LORA1TAB12 PO; +METO25TA62; +PANT1INJ3 PO; -ZOLP10TA6 PO
[2018-08-30] MEDS ORDERED: SODIUM CHLORIDE 0.9% 500 ML IV ONE (12:11)
[2018-08-30] MEDS ORDERED: KETOROLAC TROMETH 30 MG/ML 1ML VIAL IV ONE (12:15)
[2018-08-30] MEDS ORDERED: HYDROmorphone HCL 2 MG/ML VL IV ONE (12:15)
[2018-08-30] MEDS ORDERED: ONDANSETRON HCL 4 MG/2 ML VIAL IV ONE (12:15)
[2018-08-30 12:41] LABS: Basophils # (auto) 0.1 uL; Basophils % (auto) 1.6 % (0.0-2.0); Eosinophils # (auto) 0.1 uL; Eosinophils % (auto) 2.5 % (0.0-7.0); Hematocrit 39.6 % (36.0-46.0); Hemoglobin 12.8 g/dL (12.2-16.2); Lymphocytes # (auto) 1.5 uL; Lymphocytes % (auto) 38.8 % (10.0-50.0); Mean Corpuscular Hemoglobin 29.3 pg (28.0-32.0); Mean Corpuscular Hgb Conc. 32.3 g/dL (32.0-36.0); Mean Corpuscular Volume 90.8 fL (80.0-100.0); Monocytes # (auto) 0.3 uL; Monocytes % (auto) 8.2 % (0.0-12.0); Neutrophils # (auto) 1.9 uL; Neutrophils % (auto) 48.9 % (37.0-80.0); Platelet Count (auto) 201 10^3/uL (140-450); Red Blood Cells 4.36 10^6/uL (4.0-5.20); Red Cell Distribution Width 14.1 % (11.8-14.3)
[2018-08-30 12:54] LABS: Albumin 3.5 g/dL (3.4-5.0); Anion Gap 4 (5-15); BUN/Creatinine Ratio 17.8; Blood Urea Nitrogen 16 mg/dL (7-18); Calcium 8.3 mg/dL (8.5-10.1); Carbon Dioxide 26 mmol/L (21-32); Chloride 110 mmol/L (98-107); GFR African American 79 mL/min; GFR Non-African American 65 mL/min; Glucose 109 mg/dL (74-106); Potassium 3.6 mmol/L (3.5-5.1); Sodium 140 mmol/L (136-145)
[2018-08-30 12:59] LABS: Alanine Aminotransferase 18 U/L (13-56); Alkaline Phosphatase 83 U/L (45-117); Aspartate Aminotransferase 15 U/L (15-37); Bilirubin, Total 0.4 mg/dL (0.2-1.0); Total Protein 7.3 g/dL (6.4-8.2)
[2018-08-30 14:05] VITALS: BP 112/50
[2018-08-30] MEDS ORDERED: MORPHINE SULFATE 4 MG/ML SYR/VIAL IV ONE (14:15)
== END 2018-08-30 14:51 | disposition home or self-care (01) ==
LOC: ER 11:46
DX: M54.42 Lumbago with sciatica, left side (principal); J45.909 Unspecified asthma, uncomplicated; K21.9 Gastro-esophageal reflux disease without esophagitis; I10 Essential (primary) hypertension; Z98.51 Tubal ligation status; Z88.8 Allergy status to other drugs, medicaments and biological substances
CPT/HCPCS: 36415; 72131; 80053; 84484; 85025; 94761; 96374; 96375; 99284; J1170; J1885; J2270; J2405

== ENCOUNTER 2018-09-16 11:49 | Emergency (ER) | payer OTHER ==
[~2018-09-16] VITALS: Ht 167.6 cm; Wt 76.2 kg
[2018-09-16 12:50] VITALS: BP 100/55
[2018-09-16] MEDS ORDERED: ACETAMINOPHEN/CODEINE#3 (300/30mg) TAB PO ONE (13:30)
[2018-09-16] MEDS ORDERED: HYDROcodone-ACET 5/325MG TAB PO ONE (13:45)
== END 2018-09-16 13:44 | disposition home or self-care (01) ==
LOC: ER 11:50
DX: S82.852A Displaced trimalleolar fracture of left lower leg, initial encounter for closed fracture (principal); J45.909 Unspecified asthma, uncomplicated; K21.9 Gastro-esophageal reflux disease without esophagitis; I10 Essential (primary) hypertension; Z98.51 Tubal ligation status; Z88.6 Allergy status to analgesic agent; W18.2XXA Fall in (into) shower or empty bathtub, initial encounter; Y93.E1 Activity, personal bathing and showering; Y92.091 Bathroom in other non-institutional residence as the place of occurrence of the external cause; Y99.8 Other external cause status
CPT/HCPCS: 29515; 73610

== ENCOUNTER 2019-02-08 12:06 | Emergency (ER) | payer OTHER ==
[~2019-02-08] VITALS: Ht 157.5 cm; Wt 76.2 kg
[2019-02-08 12:52] LABS: Basophils # (auto) 0.1 uL; Basophils % (auto) 1.8 % (0.0-2.0); Eosinophils # (auto) 0.1 uL; Eosinophils % (auto) 3.2 % (0.0-7.0); Hematocrit 40.7 % (36.0-46.0); Hemoglobin 13.4 g/dL (12.2-16.2); Lymphocytes # (auto) 1.5 uL; Lymphocytes % (auto) 33.8 % (10.0-50.0); Mean Corpuscular Hemoglobin 29.1 pg (28.0-32.0); Mean Corpuscular Hgb Conc. 32.9 g/dL (32.0-36.0); Mean Corpuscular Volume 88.5 fL (80.0-100.0); Monocytes # (auto) 0.4 uL; Monocytes % (auto) 8.1 % (0.0-12.0); Neutrophils # (auto) 2.4 uL; Neutrophils % (auto) 53.1 % (37.0-80.0); Platelet Count (auto) 226 10^3/uL (140-450); Red Cell Distribution Width 15.2 % (11.8-14.3); White Blood Cell 4.5 10^3/uL (4.4-10.8)
[2019-02-08 13:05] LABS: Albumin 4.2 g/dL (3.4-5.0); BUN/Creatinine Ratio 12.5; Calcium 9.4 mg/dL (8.5-10.1); Magnesium 2.5 mg/dL (1.6-2.6); Potassium 3.4 mmol/L (3.5-5.1)
[2019-02-08] MEDS: MORPHINE SULFATE 4 MG/ML SYR/VIAL IV ONE (13:07)
[2019-02-08] MEDS: SODIUM CHLORIDE 0.9% 500 ML IVB ONE (13:07)
[2019-02-08 13:08] LABS: Total Protein 8.2 g/dL (6.4-8.2)
[2019-02-08] MEDS: ONDANSETRON HCL 4 MG/2 ML VIAL IV ONE (13:08)
[2019-02-08] MEDS: FLEET ENEMA(ADULT) 135 ML PR ONE (14:30)
[2019-02-08 14:59] LABS: Urine Bacteria FEW /hpf (None Seen); Urine Blood 2+ /uL (Negative); Urine Budding Yeast FEW /hpf (None Seen); Urine Mucus FEW (None Seen); Urine WBC 7 /hpf (0 - 5)
[2019-02-08 15:26] VITALS: BP 146/50
== END 2019-02-08 16:23 | disposition home or self-care (01) ==
LOC: ER 12:09
DX: K59.00 Constipation, unspecified (principal); J45.909 Unspecified asthma, uncomplicated; K21.9 Gastro-esophageal reflux disease without esophagitis; I10 Essential (primary) hypertension; Z98.51 Tubal ligation status; Z88.6 Allergy status to analgesic agent; Z79.899 Other long term (current) drug therapy
CPT/HCPCS: 36415; 74176; 80053; 81001; 82150; 83690; 83735; 85025; 94761; 96361; 96374; 96375; 99284; J2270; J2405; J7040

== ENCOUNTER 2020-03-03 08:12 | Inpatient (IN) | payer OTHER ==
[~2020-03-03] VITALS: Ht 160 cm; Wt 90.0 kg
[~2020-03-03 08:12] MED LIST changes: -METO25TA62; +METO25TA93
[2020-03-03] MEDS ORDERED: SODIUM CHLORIDE 0.9% 1,000 ML IV ONE (08:42)
[2020-03-03 09:06] LABS: Urine Bacteria NONE SEEN /hpf (None Seen); Urine Blood Negative /uL (Negative); Urine Specific Gravity 1.013 (1.001-1.035); Urine WBC <1 /hpf (0 - 5)
[2020-03-03] MEDS ORDERED: MORPHINE SULFATE 4 MG/ML SYR/VIAL IV ONE (09:45)
[2020-03-03] MEDS ORDERED: ONDANSETRON HCL 4 MG/2 ML VIAL IV ONE ×2 (09:45→10:45)
[2020-03-03 09:50] LABS: Basophils # (auto) 0.1 10 ^3/uL (0-0.2); Basophils % (auto) 1.7 % (0.0-2.0); Eosinophils # (auto) 0.1 10 ^3/uL (0-0.8); Hematocrit 37.9 % (36.0-46.0); Hemoglobin 12.2 g/dL (12.2-16.2); Lymphocytes # (auto) 1.6 10 ^3/uL (0.4-5.4); Lymphocytes % (auto) 35.8 % (10.0-50.0); Mean Corpuscular Hemoglobin 28.8 pg (28.0-32.0); Mean Corpuscular Hgb Conc. 32.1 g/dL (32.0-36.0); Mean Corpuscular Volume 89.6 fL (80.0-100.0); Monocytes # (auto) 0.4 10 ^3/uL (0-1.3); Monocytes % (auto) 9.5 % (0.0-12.0); Neutrophils # (auto) 2.2 10 ^3/uL (1.6-8.6); Nucleated Red Blood Cells % 0.1 %; Platelet Count (auto) 222 10^3/uL (140-450); Red Blood Cells 4.23 10^6/uL (4.0-5.20); Red Cell Distribution Width 14.2 % (11.8-14.3); White Blood Cell 4.4 10^3/uL (4.4-10.8)
[2020-03-03 10:13] LABS: Albumin 3.1 g/dL (3.4-5.0); Calcium 8.7 mg/dL (8.5-10.1); Potassium 3.6 mmol/L (3.5-5.1)
[2020-03-03 10:16] LABS: Bilirubin, Total 0.3 mg/dL (0.2-1.0); Total Protein 7.1 g/dL (6.4-8.2)
[2020-03-03] MEDS ORDERED: cefTRIAXone 1GM/50ML D5W 50 ML IV ONE (10:45)
[2020-03-03] MEDS ORDERED: metroNIDAZOLE 500MG/100ML 100 ML IV ONE (10:45)
[2020-03-03] MEDS ORDERED: HYDROmorphone HCL 2 MG/ML VL IV ONE (10:45)
[2020-03-03] MEDS: SODIUM CHLORIDE 0.9% 1,000 ML IV SCH ×2 (11:24→21:37)
[2020-03-03] MEDS: cefTRIAXone 1GM/50ML D5W 50 ML IV SCH (11:37)
[2020-03-03 12:20] VITALS: BP 126/79
[2020-03-03] MEDS: ONDANSETRON HCL 4 MG/2 ML VIAL IV PRN ×2 (15:03→19:52)
[2020-03-03] MEDS: MORPHINE SULF INJ 2 MG/ML SYRINGE 1ML IV PRN (15:03)
[2020-03-03] MEDS: metroNIDAZOLE 500MG/100ML 100 ML IV SCH ×2 (17:29→21:38)
[2020-03-03 17:43] VITALS: BP 127/74
[2020-03-03 20:00] VITALS: BP 142/81
[2020-03-03] MEDS: METOCLOPRAMIDE HCL 5MG/ml INJ 2ml VIAL IV PRN (21:58)
[2020-03-03 22:00] VITALS: BP 142/81
[2020-03-03] MEDS: TEMAZEPAM 15 MG CAP PO PRN (22:16)
[2020-03-03] MEDS: FAMOTIDINE 20 MG TAB PO SCH (22:16)
[2020-03-04] MEDS: ONDANSETRON HCL 4 MG/2 ML VIAL IV PRN ×4 (00:18→18:39)
[2020-03-04] MEDS: METOCLOPRAMIDE HCL 5MG/ml INJ 2ml VIAL IV PRN ×2 (03:41→10:39)
[2020-03-04 05:00] VITALS: BP 127/71
[2020-03-04] MEDS: metroNIDAZOLE 500MG/100ML 100 ML IV SCH ×3 (05:36→22:00)
[2020-03-04] MEDS: ACETAMINOPHEN 500 MG TAB PO PRN (06:41)
[2020-03-04 09:13] VITALS: BP 138/79
[2020-03-04] MEDS ORDERED: ENOXAPARIN SOD 40 MG/0.4 ML SYRINGE SC SCH (10:00)
[2020-03-04] MEDS: FAMOTIDINE 20 MG TAB PO SCH (10:14)
[2020-03-04] MEDS: traMADol HCL 50 MG TAB PO PRN ×3 (10:15→20:34)
[2020-03-04] MEDS: SODIUM CHLORIDE 0.9% 1,000 ML IV SCH ×2 (10:39→17:24)
[2020-03-04 12:43] VITALS: BP 138/76
[2020-03-04] MEDS: PROMETHAZINE HCL 25 MG/ML 1ML IV PRN ×3 (15:24→22:30)
[2020-03-04 16:33] VITALS: BP 151/90
[2020-03-04 22:00] VITALS: BP 140/95
[2020-03-04] MEDS: LACTULOSE 20Gm/30ML SOLN PO SCH (22:00)
[2020-03-04] MEDS: TEMAZEPAM 15 MG CAP PO PRN (22:30)
[2020-03-05] MEDS: SODIUM CHLORIDE 0.9% 1,000 ML IV SCH ×2 (03:24→13:24)
[2020-03-05 05:00] VITALS: BP 125/76
[2020-03-05] MEDS: metroNIDAZOLE 500MG/100ML 100 ML IV SCH ×3 (05:18→21:44)
[2020-03-05] MEDS: ACETAMINOPHEN 500 MG TAB PO PRN (05:18)
[2020-03-05 06:31] LABS: Chloride 109 mmol/L (98-107); Potassium 3.3 mmol/L (3.5-5.1); Sodium 142 mmol/L (136-145)
[2020-03-05 06:42] LABS: Anion Gap 8 (5-15); BUN/Creatinine Ratio 13.6; Blood Urea Nitrogen 9 mg/dL (7-18); Calcium 8.2 mg/dL (8.5-10.1); Carbon Dioxide 25 mmol/L (21-32); GFR African American 113 mL/min; GFR Non-African American 93 mL/min; Glucose 111 mg/dL (74-106)
[2020-03-05 06:44] LABS: Alanine Aminotransferase 39 U/L (13-56); Alkaline Phosphatase 70 U/L (45-117); Aspartate Aminotransferase 48 U/L (15-37); Bilirubin, Total 0.3 mg/dL (0.2-1.0); Total Protein 7.2 g/dL (6.4-8.2)
[2020-03-05 07:57] LABS: Basophils # (auto) 0 10 ^3/uL (0-0.2); Basophils % (auto) 0.7 % (0.0-2.0); Eosinophils # (auto) 0 10 ^3/uL (0-0.8); Eosinophils % (auto) 0.1 % (0.0-7.0); Hematocrit 37.6 % (36.0-46.0); Hemoglobin 11.8 g/dL (12.2-16.2); Lymphocytes # (auto) 0.7 10 ^3/uL (0.4-5.4); Lymphocytes % (auto) 12.7 % (10.0-50.0); Mean Corpuscular Hemoglobin 28.7 pg (28.0-32.0); Mean Corpuscular Hgb Conc. 31.5 g/dL (32.0-36.0); Mean Corpuscular Volume 91.3 fL (80.0-100.0); Monocytes # (auto) 0.3 10 ^3/uL (0-1.3); Monocytes % (auto) 5.1 % (0.0-12.0); Neutrophils # (auto) 4.2 10 ^3/uL (1.6-8.6); Neutrophils % (auto) 81.4 % (37.0-80.0); Nucleated Red Blood Cells % 0.1 %; Platelet Count (auto) 217 10^3/uL (140-450); Red Blood Cells 4.12 10^6/uL (4.0-5.20); Red Cell Distribution Width 14.5 % (11.8-14.3); White Blood Cell 5.2 10^3/uL (4.4-10.8)
[2020-03-05 08:15] LABS: INR 1.04 (0.9-1.15); Partial Thromboplastin Time 29.1 sec (23.64-32.05)
[2020-03-05 09:00] VITALS: BP 115/66
[2020-03-05] MEDS: FAMOTIDINE (10MG/ML) 2ML VL IV SCH (09:53)
[2020-03-05] MEDS: cefTRIAXone 1GM/50ML D5W 50 ML IV SCH (09:53)
[2020-03-05] MEDS: LACTULOSE 20Gm/30ML SOLN PO SCH (10:00)
[2020-03-05] MEDS: ONDANSETRON HCL 4 MG/2 ML VIAL IV PRN ×2 (12:58→20:32)
[2020-03-05] MEDS: traMADol HCL 50 MG TAB PO PRN (12:58)
[2020-03-05 13:00] VITALS: BP 115/60
[2020-03-05] MEDS: MORPHINE SULF INJ 2 MG/ML SYRINGE 1ML IV PRN ×2 (15:02→20:33)
[2020-03-05] MEDS: PROMETHAZINE HCL 25 MG/ML 1ML IV PRN (15:02)
[2020-03-05] MEDS ORDERED: POTASSIUM CHLORIDE 20 MEQ, LIDOCAINE 1% (LOCAL ANESTH.) 2 ML in SODIUM CHL 0.9% 100 ML IV ONE (15:30)
[2020-03-05 17:00] VITALS: BP 111/61
[2020-03-05] MEDS: TEMAZEPAM 15 MG CAP PO PRN (21:44)
[2020-03-05 22:00] VITALS: BP 119/71
[2020-03-06] MEDS: SODIUM CHLORIDE 0.9% 1,000 ML IV SCH ×2 (04:18→09:24)
[2020-03-06 05:00] VITALS: BP 119/68
[2020-03-06] MEDS: metroNIDAZOLE 500MG/100ML 100 ML IV SCH ×3 (05:59→21:40)
[2020-03-06] MEDS: MORPHINE SULF INJ 2 MG/ML SYRINGE 1ML IV PRN (06:12)
[2020-03-06] MEDS: ONDANSETRON HCL 4 MG/2 ML VIAL IV PRN ×2 (06:12→20:20)
[2020-03-06 07:20] LABS: Basophils # (auto) 0.1 10 ^3/uL (0-0.2); Basophils % (auto) 0.8 % (0.0-2.0); Eosinophils # (auto) 0.2 10 ^3/uL (0-0.8); Eosinophils % (auto) 2.5 % (0.0-7.0); Hematocrit 38.1 % (36.0-46.0); Hemoglobin 11.9 g/dL (12.2-16.2); Lymphocytes # (auto) 1.6 10 ^3/uL (0.4-5.4); Lymphocytes % (auto) 24.5 % (10.0-50.0); Mean Corpuscular Hemoglobin 29.1 pg (28.0-32.0); Mean Corpuscular Hgb Conc. 31.3 g/dL (32.0-36.0); Mean Corpuscular Volume 92.9 fL (80.0-100.0); Monocytes # (auto) 0.7 10 ^3/uL (0-1.3); Monocytes % (auto) 10.8 % (0.0-12.0); Neutrophils # (auto) 3.9 10 ^3/uL (1.6-8.6); Neutrophils % (auto) 61.4 % (37.0-80.0); Platelet Count (auto) 199 10^3/uL (140-450); Red Cell Distribution Width 15.1 % (11.8-14.3); White Blood Cell 6.3 10^3/uL (4.4-10.8)
[2020-03-06 07:33] LABS: BUN/Creatinine Ratio 15.3; Calcium 7.7 mg/dL (8.5-10.1); Potassium 3.6 mmol/L (3.5-5.1)
[2020-03-06 08:00] VITALS: BP 112/62
[2020-03-06 09:00] VITALS: BP_SYST 107; BP_SYST 112; BP_DIAS 62; BP_DIAS 69
[2020-03-06] MEDS: cefTRIAXone 1GM/50ML D5W 50 ML IV SCH (10:09)
[2020-03-06] MEDS: FAMOTIDINE (10MG/ML) 2ML VL IV SCH (10:09)
[2020-03-06] MEDS: traMADol HCL 50 MG TAB PO PRN ×2 (10:09→20:19)
[2020-03-06 13:00] VITALS: BP 141/79
[2020-03-06 17:00] VITALS: BP 127/71
[2020-03-06] MEDS: TEMAZEPAM 15 MG CAP PO PRN (21:40)
[2020-03-06] MEDS: PROMETHAZINE HCL 25 MG/ML 1ML IV PRN (21:45)
[2020-03-06] MEDS: ACETAMINOPHEN 500 MG TAB PO PRN (21:45)
[2020-03-06 22:00] VITALS: BP 132/76
[2020-03-07] MEDS: SODIUM CHLORIDE 0.9% 1,000 ML IV SCH ×3 (01:08→15:11)
[2020-03-07 05:00] VITALS: BP 125/76
[2020-03-07] MEDS: metroNIDAZOLE 500MG/100ML 100 ML IV SCH ×3 (05:50→21:37)
[2020-03-07] MEDS: traMADol HCL 50 MG TAB PO PRN ×3 (06:20→15:10)
[2020-03-07 08:00] VITALS: BP 114/67
[2020-03-07 09:00] VITALS: BP 114/64
[2020-03-07 09:10] LABS: Basophils # (auto) 0 10 ^3/uL (0-0.2); Basophils % (auto) 0.8 % (0.0-2.0); Eosinophils # (auto) 0.1 10 ^3/uL (0-0.8); Eosinophils % (auto) 1.8 % (0.0-7.0); Hematocrit 38.1 % (36.0-46.0); Hemoglobin 12.1 g/dL (12.2-16.2); Lymphocytes # (auto) 0.6 10 ^3/uL (0.4-5.4); Lymphocytes % (auto) 12.5 % (10.0-50.0); Mean Corpuscular Hgb Conc. 31.7 g/dL (32.0-36.0); Mean Corpuscular Volume 91.6 fL (80.0-100.0); Monocytes # (auto) 0.5 10 ^3/uL (0-1.3); Monocytes % (auto) 10.1 % (0.0-12.0); Neutrophils # (auto) 3.8 10 ^3/uL (1.6-8.6); Neutrophils % (auto) 74.8 % (37.0-80.0); Platelet Count (auto) 173 10^3/uL (140-450); Red Blood Cells 4.16 10^6/uL (4.0-5.20); Red Cell Distribution Width 14.5 % (11.8-14.3); White Blood Cell 5.1 10^3/uL (4.4-10.8)
[2020-03-07 09:27] LABS: BUN/Creatinine Ratio 10.9; Calcium 8.1 mg/dL (8.5-10.1); Potassium 3.4 mmol/L (3.5-5.1)
[2020-03-07] MEDS: FAMOTIDINE (10MG/ML) 2ML VL IV SCH (09:30)
[2020-03-07] MEDS: cefTRIAXone 1GM/50ML D5W 50 ML IV SCH (09:30)
[2020-03-07] MEDS: ACETAMINOPHEN 500 MG TAB PO PRN (09:31)
[2020-03-07] MEDS ORDERED: POTASSIUM EFFERVESENT TAB 25 MEQ PO ONE ×2 (10:45→11:15)
[2020-03-07] MEDS ORDERED: IOHEXOL 300 MG/ML 100ML BOTTLE IJ ONE (10:49)
[2020-03-07] MEDS ORDERED: OMNIPAQUE ORAL SOLN 500ml 12mg/ml PO ONE (10:49)
[2020-03-07 13:00] VITALS: BP 121/70
[2020-03-07 17:00] VITALS: BP 120/70
[2020-03-07] MEDS: ONDANSETRON HCL 4 MG/2 ML VIAL IV PRN (18:51)
[2020-03-07] MEDS: TEMAZEPAM 15 MG CAP PO PRN (21:37)
[2020-03-07 22:00] VITALS: BP 147/77
[2020-03-08] MEDS: traMADol HCL 50 MG TAB PO PRN (01:09)
[2020-03-08] MEDS: SODIUM CHLORIDE 0.9% 1,000 ML IV SCH ×3 (01:56→21:04)
[2020-03-08] MEDS: ONDANSETRON HCL 4 MG/2 ML VIAL IV PRN ×2 (02:49→18:24)
[2020-03-08 05:12] VITALS: BP 132/80
[2020-03-08] MEDS: metroNIDAZOLE 500MG/100ML 100 ML IV SCH (06:23)
[2020-03-08 08:00] VITALS: BP 116/61
[2020-03-08] MEDS: cefTRIAXone 1GM/50ML D5W 50 ML IV SCH (09:25)
[2020-03-08] MEDS: FAMOTIDINE (10MG/ML) 2ML VL IV SCH (09:25)
[2020-03-08] MEDS: ACETAMINOPHEN 500 MG TAB PO PRN ×2 (09:41→19:41)
[2020-03-08 11:00] LABS: Basophils # (auto) 0 10 ^3/uL (0-0.2); Basophils % (auto) 0.7 % (0.0-2.0); Eosinophils # (auto) 0 10 ^3/uL (0-0.8); Eosinophils % (auto) 0.8 % (0.0-7.0); Hematocrit 36.2 % (36.0-46.0); Hemoglobin 11.8 g/dL (12.2-16.2); Lymphocytes # (auto) 0.6 10 ^3/uL (0.4-5.4); Lymphocytes % (auto) 14.2 % (10.0-50.0); Mean Corpuscular Hemoglobin 29.3 pg (28.0-32.0); Mean Corpuscular Hgb Conc. 32.6 g/dL (32.0-36.0); Monocytes # (auto) 0.4 10 ^3/uL (0-1.3); Monocytes % (auto) 8.7 % (0.0-12.0); Neutrophils # (auto) 3.3 10 ^3/uL (1.6-8.6); Neutrophils % (auto) 75.6 % (37.0-80.0); Nucleated Red Blood Cells % 0.1 %; Platelet Count (auto) 220 10^3/uL (140-450); Red Blood Cells 4.02 10^6/uL (4.0-5.20); White Blood Cell 4.4 10^3/uL (4.4-10.8)
[2020-03-08 11:22] LABS: BUN/Creatinine Ratio 12.8; Calcium 8.2 mg/dL (8.5-10.1); Potassium 3.2 mmol/L (3.5-5.1)
[2020-03-08 12:00] VITALS: BP 131/65
[2020-03-08] MEDS ORDERED: PANTOPRAZOLE 40 MG TAB PO ONE (12:30)
[2020-03-08] MEDS ORDERED: SUCRALFATE 1 GM/10 ML ORAL SUSP PO ONE (12:30)
[2020-03-08] MEDS ORDERED: POTASSIUM EFFERVESENT TAB 25 MEQ PO ONE (12:30)
[2020-03-08] MEDS ORDERED: diphenhdrAMINE HCL 50 MG/1 ML VL ONE (14:45)
[2020-03-08] MEDS ORDERED: LIDOCAINE VISCOUS 2% 15ML UD ONE (14:45)
[2020-03-08] MEDS ORDERED: SODIUM CHLORIDE LOCK 10 ML ONE (14:45)
[2020-03-08] MEDS: MIDAZOLAM HCL 5 MG/ML-1ML VIAL ONE ×3 (15:13→15:19)
[2020-03-08] MEDS: fentaNYL CITRATE 100 MCG/2 ML VL ONE ×3 (15:13→15:19)
[2020-03-08] MEDS: SUCRALFATE 1 GM/10 ML ORAL SUSP PO SCH ×2 (16:16→21:04)
[2020-03-08 17:00] VITALS: BP 133/69
[2020-03-08] MEDS: PROMETHAZINE HCL 25 MG/ML 1ML IV PRN (20:58)
[2020-03-08] MEDS: TEMAZEPAM 15 MG CAP PO PRN (21:04)
[2020-03-08] MEDS: PANTOPRAZOLE 40 MG TAB PO SCH (21:04)
[2020-03-08 21:30] VITALS: BP 150/71
[2020-03-09] MEDS: PROMETHAZINE HCL 25 MG/ML 1ML IV PRN (03:45)
[2020-03-09] MEDS: MORPHINE SULF INJ 2 MG/ML SYRINGE 1ML IV PRN (04:08)
[2020-03-09 05:00] VITALS: BP 142/80
[2020-03-09] MEDS: ACETAMINOPHEN 500 MG TAB PO PRN (05:25)
[2020-03-09] MEDS: SUCRALFATE 1 GM/10 ML ORAL SUSP PO SCH ×3 (05:50→17:01)
[2020-03-09 06:13] LABS: Basophils # (auto) 0 10 ^3/uL (0-0.2); Basophils % (auto) 0.4 % (0.0-2.0); Eosinophils # (auto) 0.1 10 ^3/uL (0-0.8); Eosinophils % (auto) 1.7 % (0.0-7.0); Hemoglobin 11.6 g/dL (12.2-16.2); Lymphocytes # (auto) 0.6 10 ^3/uL (0.4-5.4); Lymphocytes % (auto) 11.2 % (10.0-50.0); Mean Corpuscular Hemoglobin 28.9 pg (28.0-32.0); Mean Corpuscular Hgb Conc. 32.1 g/dL (32.0-36.0); Monocytes # (auto) 0.6 10 ^3/uL (0-1.3); Neutrophils # (auto) 4.2 10 ^3/uL (1.6-8.6); Neutrophils % (auto) 76.7 % (37.0-80.0); Nucleated Red Blood Cells % 0.1 %; Platelet Count (auto) 248 10^3/uL (140-450); Red Cell Distribution Width 13.9 % (11.8-14.3); White Blood Cell 5.5 10^3/uL (4.4-10.8)
[2020-03-09 06:34] LABS: Calcium 8.2 mg/dL (8.5-10.1); Potassium 3.4 mmol/L (3.5-5.1)
[2020-03-09 06:37] LABS: BUN/Creatinine Ratio 6.1
[2020-03-09 08:00] VITALS: BP 146/68
[2020-03-09] MEDS: SODIUM CHLORIDE 0.9% 1,000 ML IV SCH (08:58)
[2020-03-09] MEDS: PANTOPRAZOLE 40 MG TAB PO SCH (08:59)
[2020-03-09] MEDS: cefTRIAXone 1GM/50ML D5W 50 ML IV SCH (08:59)
[2020-03-09] MEDS: FAMOTIDINE (10MG/ML) 2ML VL IV SCH (08:59)
[2020-03-09] MEDS ORDERED: GASTROGRAFIN 120 ML SOL ONE (10:05)
[2020-03-09 12:00] VITALS: BP 100/73
[2020-03-09] MEDS ORDERED: POTASSIUM CHL 20 Meq TABLET PO ONE (13:30)
[2020-03-09] MEDS: traMADol HCL 50 MG TAB PO PRN (13:33)
[2020-03-09 14:50] VITALS: BP 100/73
[2020-03-09 16:58] VITALS: BP 143/73
[2020-03-09] MEDS ORDERED: METOCLOPRAMIDE HCL 10 MG TAB PO SCH (17:00)
[2020-03-09] MEDS: ONDANSETRON HCL 4 MG/2 ML VIAL IV PRN (19:36)
[2020-03-09 22:00] VITALS: BP 125/69
== END 2020-03-09 19:15 | disposition home or self-care (01) | DRG 392 ==
LOC: ER 08:12 → OVERFLOW 08:13 → WEST WING 12:18
PROVIDERS: ADMIT Internal Medicine; ATTEND Internal Medicine
PROC: 0DB88ZX Excision of Small Intestine, Via Natural or Artificial Opening Endoscopic, Diagnostic (ICD-10-PCS; 2020-03-08)
PROC: 0DB68ZX Excision of Stomach, Via Natural or Artificial Opening Endoscopic, Diagnostic (ICD-10-PCS; principal; 2020-03-08 15:02)
DX: K44.9 Diaphragmatic hernia without obstruction or gangrene (principal); K57.32 Diverticulitis of large intestine without perforation or abscess without bleeding; E44.0 Moderate protein-calorie malnutrition; N30.00 Acute cystitis without hematuria; K22.10 Ulcer of esophagus without bleeding; I10 Essential (primary) hypertension; F41.9 Anxiety disorder, unspecified; J45.909 Unspecified asthma, uncomplicated; K21.9 Gastro-esophageal reflux disease without esophagitis; E66.9 Obesity, unspecified; K59.00 Constipation, unspecified; E87.6 Hypokalemia; E86.0 Dehydration; K80.80 Other cholelithiasis without obstruction; K29.70 Gastritis, unspecified, without bleeding; Z80.1 Family history of malignant neoplasm of trachea, bronchus and lung; Z80.3 Family history of malignant neoplasm of breast; Z80.41 Family history of malignant neoplasm of ovary; Z80.8 Family history of malignant neoplasm of other organs or systems; Z81.8 Family history of other mental and behavioral disorders; Z82.0 Family history of epilepsy and other diseases of the nervous system; Z82.3 Family history of stroke; Z82.49 Family history of ischemic heart disease and other diseases of the circulatory system; Z82.5 Family history of asthma and other chronic lower respiratory diseases; Z83.3 Family history of diabetes mellitus; Z82.62 Family history of osteoporosis; Z68.32 Body mass index [BMI] 32.0-32.9, adult
CPT/HCPCS: 36415; 74176; 74177; 74246; 76705; 80048; 80053; 81001; 82150; 83605; 83690; 84443; 85025; 85610; 85730; 87040; 87086; G0378; J0696; J2001; J2250; J2405; J3490

== ENCOUNTER 2020-10-17 13:31 | Inpatient (IN) | payer OTHER ==
[~2020-10-17] VITALS: Ht 160 cm; Wt 97.2 kg
[~2020-10-17 13:31] MED LIST changes: -LORA1TAB12 PO; +LORA1TAB23 PO
[2020-10-17] MEDS ORDERED: methylPREDNISolone SOD SUCC 125 MG/2 ML VL IV ONE (13:45)
[2020-10-17] MEDS ORDERED: AZITHROMYCIN 500MG/ 250ML 250 ML IV ONE (13:45)
[2020-10-17] MEDS ORDERED: SODIUM CHLORIDE 0.9% 500 ML IV ONE (13:45)
[2020-10-17 14:05] LABS: Basophils # (auto) 0 10 ^3/uL (0-0.2); Basophils % (auto) 0.5 % (0.0-2.0); Eosinophils # (auto) 0.1 10 ^3/uL (0-0.8); Eosinophils % (auto) 0.9 % (0.0-7.0); Hematocrit 41.3 % (36.0-46.0); Hemoglobin 13.7 g/dL (12.2-16.2); Lymphocytes # (auto) 1.7 10 ^3/uL (0.4-5.4); Lymphocytes % (auto) 31.1 % (10.0-50.0); Mean Corpuscular Hemoglobin 29.3 pg (28.0-32.0); Mean Corpuscular Hgb Conc. 33.1 g/dL (32.0-36.0); Mean Corpuscular Volume 88.4 fL (80.0-100.0); Monocytes # (auto) 0.3 10 ^3/uL (0-1.3); Monocytes % (auto) 5.7 % (0.0-12.0); Neutrophils # (auto) 3.5 10 ^3/uL (1.6-8.6); Neutrophils % (auto) 61.8 % (37.0-80.0); Nucleated Red Blood Cells % 0.1 %; Red Blood Cells 4.67 10^6/uL (4.0-5.20); Red Cell Distribution Width 15.9 % (11.8-14.3); White Blood Cell 5.6 10^3/uL (4.4-10.8)
[2020-10-17 14:20] LABS: Alanine Aminotransferase 27 U/L (13-56); Albumin 2.8 g/dL (3.4-5.0); Anion Gap 4 (5-15); Blood Urea Nitrogen 26 mg/dL (7-18); CRP High Sensitivity 0.38 mg/dL (< 0.3); Calcium 7.8 mg/dL (8.5-10.1); Carbon Dioxide 28 mmol/L (21-32); Chloride 104 mmol/L (98-107); Glucose 108 mg/dL (74-106); Potassium 4.2 mmol/L (3.5-5.1); Sodium 136 mmol/L (136-145)
[2020-10-17 14:29] LABS: Alkaline Phosphatase 69 U/L (45-117); Aspartate Aminotransferase 14 U/L (15-37); BUN/Creatinine Ratio 27.1; Bilirubin, Total 0.8 mg/dL (0.2-1.0); GFR African American 74 mL/min; GFR Non-African American 61 mL/min; Total Protein 6.5 g/dL (6.4-8.2)
[2020-10-17] MEDS ORDERED: MORPHINE SULFATE INJECTION 2 MG/ML SYRG IV PRN (16:00)
[2020-10-17] MEDS ORDERED: ACETAMINOPHEN 500 MG TAB PO PRN (16:00)
[2020-10-17] MEDS ORDERED: NITROGLYCERIN 0.4 MG SL TAB SL PRN (16:00)
[2020-10-17] MEDS ORDERED: HYDROcodone-ACET 5/325MG TAB PO PRN (16:00)
[2020-10-17] MEDS: SODIUM CHLORIDE 0.9% 1,000 ML IV SCH (16:40)
[2020-10-17 17:32] LABS: Urine Bacteria FEW /hpf (None Seen); Urine Blood Negative /uL (Negative); Urine Specific Gravity 1.016 (1.001-1.035); Urine WBC 24 /hpf (0 - 5)
[2020-10-17] MEDS ORDERED: IOHEXOL 350 MG/ML 100ML IJ ONE (17:35)
[2020-10-17] MEDS ORDERED: PRED10TA PO (17:57)
[2020-10-17] MEDS ORDERED: LORA1TAB23 PO (17:57)
[2020-10-17] MEDS ORDERED: OMEP-434 PO (17:57)
[2020-10-17] MEDS ORDERED: MELO1TAB73 PO (17:57)
[2020-10-17] MEDS ORDERED: CITA10TA70 PO (17:57)
[2020-10-17] MEDS ORDERED: ALBU0.084 NEB (17:57)
[2020-10-17] MEDS ORDERED: METO10TA3 PO (17:57)
[2020-10-17] MEDS ORDERED: ZOLP10TA6 PO (17:57)
[2020-10-17] MEDS ORDERED: FLUT1AER3 IN (17:57)
[2020-10-17] MEDS ORDERED: TRAM50TA2 PO (17:57)
[2020-10-17] MEDS ORDERED: GABA-339 PO (17:57)
[2020-10-17] MEDS: IPRATROPIUM BROM 0.5 MG/2.5ML INH SOL NEB SCH (18:00)
[2020-10-17] MEDS: ALBUTEROL SULF 2.5 MG/0.5ML(0.5%) NEB SOLN NEB SCH (18:00)
[2020-10-17] MEDS: methylPREDNISolone SOD SUCC 40 MG/ML VL IV SCH (22:11)
[2020-10-17] MEDS ORDERED: ZOLPIDEM TARTRATE 5 MG TAB PO ONE (22:30)
[2020-10-18] MEDS: SODIUM CHLORIDE 0.9% 1,000 ML IV SCH ×3 (02:04→22:00)
[2020-10-18] MEDS: TEMAZEPAM 15 MG CAP PO PRN ×2 (02:29→19:52)
[2020-10-18] MEDS: ONDANSETRON HCL 4 MG/2 ML VIAL IV PRN ×2 (02:29→06:06)
[2020-10-18 05:48] VITALS: BP 132/80
[2020-10-18] MEDS: IPRATROPIUM BROM 0.5 MG/2.5ML INH SOL NEB SCH ×3 (06:29→18:28)
[2020-10-18] MEDS: ALBUTEROL SULF 2.5 MG/0.5ML(0.5%) NEB SOLN NEB SCH ×3 (06:29→18:28)
[2020-10-18] MEDS ORDERED: ZOLP10TA PO (06:53)
[2020-10-18 07:44] LABS: Basophils # (auto) 0 10 ^3/uL (0-0.2); Basophils % (auto) 0.1 % (0.0-2.0); Eosinophils # (auto) 0 10 ^3/uL (0-0.8); Hematocrit 39.3 % (36.0-46.0); Hemoglobin 12.9 g/dL (12.2-16.2); Lymphocytes # (auto) 0.4 10 ^3/uL (0.4-5.4); Lymphocytes % (auto) 5.2 % (10.0-50.0); Mean Corpuscular Hemoglobin 29.1 pg (28.0-32.0); Mean Corpuscular Hgb Conc. 32.8 g/dL (32.0-36.0); Mean Corpuscular Volume 88.7 fL (80.0-100.0); Monocytes # (auto) 0.1 10 ^3/uL (0-1.3); Monocytes % (auto) 1.4 % (0.0-12.0); Neutrophils # (auto) 6.5 10 ^3/uL (1.6-8.6); Neutrophils % (auto) 93.3 % (37.0-80.0); Red Blood Cells 4.43 10^6/uL (4.0-5.20); Red Cell Distribution Width 15.9 % (11.8-14.3)
[2020-10-18 08:00] VITALS: BP 118/74
[2020-10-18 08:03] LABS: Anion Gap 5 (5-15); BUN/Creatinine Ratio 27.6; Blood Urea Nitrogen 21 mg/dL (7-18); Calcium 8.3 mg/dL (8.5-10.1); Carbon Dioxide 30 mmol/L (21-32); Chloride 105 mmol/L (98-107); GFR African American 96 mL/min; GFR Non-African American 79 mL/min; Glucose 116 mg/dL (74-106); Potassium 4.1 mmol/L (3.5-5.1); Sodium 140 mmol/L (136-145)
[2020-10-18] MEDS: MORPHINE SULFATE INJECTION 2 MG/ML SYRG IV PRN (08:57)
[2020-10-18] MEDS: methylPREDNISolone SOD SUCC 40 MG/ML VL IV SCH ×2 (08:57→19:52)
[2020-10-18] MEDS: FAMOTIDINE 20 MG TAB PO SCH (08:57)
[2020-10-18] MEDS ORDERED: cefTRIAXone 1GM/50ML D5W 50 ML IV ONE (11:30)
[2020-10-18] MEDS ORDERED: SODIUM CHLORIDE 0.9% 1,000 ML IV SCH (11:45)
[2020-10-18] MEDS: LORazepam 0.5 MG TAB PO PRN (11:59)
[2020-10-18 16:00] VITALS: BP 120/85
[2020-10-18] MEDS: DOCUSATE SOD 100 MG CAP PO SCH (19:52)
[2020-10-18 22:00] VITALS: BP 137/77
[2020-10-18] MEDS: HYDROCORTISONE 2.5% TOPICAL CREAM 30GM TUBE PR SCH (22:00)
[2020-10-19 05:00] VITALS: BP 129/74
[2020-10-19] MEDS: ALBUTEROL SULF 2.5 MG/0.5ML(0.5%) NEB SOLN NEB SCH ×3 (07:30→19:10)
[2020-10-19] MEDS: IPRATROPIUM BROM 0.5 MG/2.5ML INH SOL NEB SCH ×3 (07:30→19:10)
[2020-10-19 08:00] VITALS: BP 109/65
[2020-10-19] MEDS: SODIUM CHLORIDE 0.9% 1,000 ML IV SCH ×2 (08:00→18:00)
[2020-10-19] MEDS: LORazepam 0.5 MG TAB PO PRN ×2 (08:16→14:54)
[2020-10-19] MEDS: MORPHINE SULFATE INJECTION 2 MG/ML SYRG IV PRN (08:16)
[2020-10-19] MEDS: cefTRIAXone 1GM/50ML D5W 50 ML IV SCH (09:00)
[2020-10-19] MEDS: DOCUSATE SOD 100 MG CAP PO SCH ×2 (10:01→21:04)
[2020-10-19] MEDS: FAMOTIDINE 20 MG TAB PO SCH (10:01)
[2020-10-19] MEDS: HYDROCORTISONE 2.5% TOPICAL CREAM 30GM TUBE PR SCH ×2 (10:01→21:05)
[2020-10-19] MEDS: methylPREDNISolone SOD SUCC 40 MG/ML VL IV SCH ×2 (10:22→21:04)
[2020-10-19 15:50] VITALS: BP 131/88
[2020-10-19] MEDS: TEMAZEPAM 15 MG CAP PO PRN (21:05)
[2020-10-19 22:00] VITALS: BP 144/76
[2020-10-20] MEDS: SODIUM CHLORIDE 0.9% 1,000 ML IV SCH (04:00)
[2020-10-20 05:00] VITALS: BP 132/81
[2020-10-20] MEDS: ALBUTEROL SULF 2.5 MG/0.5ML(0.5%) NEB SOLN NEB SCH ×2 (07:05→11:10)
[2020-10-20] MEDS: IPRATROPIUM BROM 0.5 MG/2.5ML INH SOL NEB SCH ×2 (07:05→11:10)
[2020-10-20 08:00] VITALS: BP 135/82
[2020-10-20] MEDS: LORazepam 0.5 MG TAB PO PRN (08:04)
[2020-10-20] MEDS: cefTRIAXone 1GM/50ML D5W 50 ML IV SCH (09:00)
[2020-10-20] MEDS: DOCUSATE SOD 100 MG CAP PO SCH (10:04)
[2020-10-20] MEDS: methylPREDNISolone SOD SUCC 40 MG/ML VL IV SCH (10:04)
[2020-10-20] MEDS: FAMOTIDINE 20 MG TAB PO SCH (10:04)
[2020-10-20] MEDS: HYDROCORTISONE 2.5% TOPICAL CREAM 30GM TUBE PR SCH (10:05)
[2020-10-20] MEDS ORDERED: ALPRAZolam 0.5 MG TAB PO ONE (10:15)
[2021-01-11] MEDS ORDERED: PANT40TA2 PO (10:58)
[2021-01-11] MEDS ORDERED: SUCR1SUS16 PO (10:58)
[2021-03-28] MEDS ORDERED: VANC125PO PO (14:58)
[2021-03-28] MEDS ORDERED: PANT40TA2 PO (15:03)
[2021-03-29] MEDS ORDERED: VANC125PO PO (09:30)
[2021-03-30] MEDS ORDERED: ASPI-378 PO (13:57)
== END 2020-10-20 13:42 | disposition home or self-care (01) | DRG 871 ==
LOC: ER 13:31 → EDBD 15:50 → MERGE 15:50 → TELE 15:50 → TELE-CENTR 10-18 04:20
PROVIDERS: ADMIT Nurse Practitioner Acute Care; ATTEND Family Medicine
DX: A41.9 Sepsis, unspecified organism (principal); G93.41 Metabolic encephalopathy; N39.0 Urinary tract infection, site not specified; J45.901 Unspecified asthma with (acute) exacerbation; E86.1 Hypovolemia; E66.9 Obesity, unspecified; I10 Essential (primary) hypertension; Z20.822 Contact with and (suspected) exposure to COVID-19; J44.9 Chronic obstructive pulmonary disease, unspecified; Z74.01 Bed confinement status; Z90.710 Acquired absence of both cervix and uterus; I95.9 Hypotension, unspecified; R07.9 Chest pain, unspecified; Z68.33 Body mass index [BMI] 33.0-33.9, adult
CPT/HCPCS: 36415; 71045; 71275; 80048; 80053; 81001; 82728; 83605; 83880; 84484; 85025; 85379; 86141; 87040; 87086; 87088; 87186; 87426; 87804; 93005; 93306; 94640; 99291; G0378; J0696; J2405

== ENCOUNTER 2020-12-11 13:20 | Inpatient (IN) | payer OTHER ==
[~2020-12-11] VITALS: Ht 160 cm; Wt 98.6 kg
[~2020-12-11 13:20] MED LIST changes: +ALBU0.084 NEB; +CITA10TA70 PO; +FLUT1AER3 IN; +MELO1TAB73 PO; +METO10TA3 PO; +OMEP-434 PO; +PRED10TA PO; +TRAM50TA2 PO; +ZOLP10TA PO; +ZOLP10TA6 PO
[2020-12-11 15:24] LABS: Basophils # (auto) 0 10 ^3/uL (0-0.2); Basophils % (auto) 0.4 % (0.0-2.0); Eosinophils # (auto) 0 10 ^3/uL (0-0.8); Eosinophils % (auto) 0.9 % (0.0-7.0); Hematocrit 37.5 % (36.0-46.0); Hemoglobin 12.3 g/dL (12.2-16.2); Lymphocytes # (auto) 1.6 10 ^3/uL (0.4-5.4); Lymphocytes % (auto) 28.2 % (10.0-50.0); Mean Corpuscular Hemoglobin 30.6 pg (28.0-32.0); Mean Corpuscular Hgb Conc. 32.7 g/dL (32.0-36.0); Mean Corpuscular Volume 93.4 fL (80.0-100.0); Monocytes # (auto) 0.6 10 ^3/uL (0-1.3); Monocytes % (auto) 11.5 % (0.0-12.0); Neutrophils # (auto) 3.3 10 ^3/uL (1.6-8.6); Nucleated Red Blood Cells % 0.2 %; Red Blood Cells 4.01 10^6/uL (4.0-5.20); Red Cell Distribution Width 17.6 % (11.8-14.3); White Blood Cell 5.5 10^3/uL (4.4-10.8)
[2020-12-11 15:44] LABS: Albumin 2.9 g/dL (3.4-5.0); Anion Gap 7 (5-15); Blood Urea Nitrogen 12 mg/dL (7-18); Calcium 7.8 mg/dL (8.5-10.1); Carbon Dioxide 29 mmol/L (21-32); Chloride 106 mmol/L (98-107); Glucose 82 mg/dL (74-106); Potassium 3.4 mmol/L (3.5-5.1); Sodium 142 mmol/L (136-145)
[2020-12-11 15:50] LABS: Alanine Aminotransferase 21 U/L (13-56); Alkaline Phosphatase 61 U/L (45-117); Aspartate Aminotransferase 22 U/L (15-37); BUN/Creatinine Ratio 17.1; Bilirubin, Total 0.8 mg/dL (0.2-1.0); GFR African American 105 mL/min; GFR Non-African American 87 mL/min; Total Protein 6.2 g/dL (6.4-8.2)
[2020-12-11] MEDS ORDERED: ACETAMINOPHEN 325 MG TAB PO ONE ×2 (17:06→17:15)
[2020-12-11] MEDS ORDERED: MORPHINE SULFATE INJECTION 2 MG/ML SYRG IV PRN ×2 (18:45)
[2020-12-11] MEDS ORDERED: SOD CHL 0.45% WITH 20MEQ KCL 1,000 ML IV ONE (18:45)
[2020-12-11] MEDS ORDERED: NITROGLYCERIN 0.4 MG SL TAB SL PRN (18:45)
[2020-12-11] MEDS ORDERED: IOHEXOL 350 MG/ML 100ML IJ ONE (18:58)
[2020-12-11] MEDS: ONDANSETRON HCL 4 MG/2 ML VIAL IV PRN (19:58)
[2020-12-11 22:27] VITALS: BP 88/45
[2020-12-11] MEDS ORDERED: TEMAZEPAM 15 MG CAP PO ONE (22:30)
[2020-12-11] MEDS: ATORVASTATIN 20 MG TAB PO SCH (22:37)
[2020-12-11 23:00] VITALS: BP 106/54
[2020-12-12] MEDS: HYDROcodone-ACET 5/325MG TAB PO PRN ×2 (03:54→10:06)
[2020-12-12] MEDS: ONDANSETRON HCL 4 MG/2 ML VIAL IV PRN ×3 (04:14→15:50)
[2020-12-12 05:00] VITALS: BP 110/59
[2020-12-12 09:00] VITALS: BP 110/59
[2020-12-12] MEDS: FAMOTIDINE 20 MG TAB PO SCH (10:07)
[2020-12-12 10:43] LABS: Basophils # (auto) 0 10 ^3/uL (0-0.2); Basophils % (auto) 0.5 % (0.0-2.0); Eosinophils # (auto) 0 10 ^3/uL (0-0.8); Hematocrit 37.9 % (36.0-46.0); Hemoglobin 11.8 g/dL (12.2-16.2); Lymphocytes # (auto) 1.2 10 ^3/uL (0.4-5.4); Lymphocytes % (auto) 31.3 % (10.0-50.0); Mean Corpuscular Hgb Conc. 31.1 g/dL (32.0-36.0); Mean Corpuscular Volume 96.6 fL (80.0-100.0); Monocytes # (auto) 0.4 10 ^3/uL (0-1.3); Monocytes % (auto) 10.6 % (0.0-12.0); Neutrophils # (auto) 2.2 10 ^3/uL (1.6-8.6); Neutrophils % (auto) 56.6 % (37.0-80.0); Nucleated Red Blood Cells % 0.1 %; Red Blood Cells 3.92 10^6/uL (4.0-5.20); Red Cell Distribution Width 17.9 % (11.8-14.3); White Blood Cell 3.9 10^3/uL (4.4-10.8)
[2020-12-12] MEDS ORDERED: metroNIDAZOLE 500 MG TAB PO ONE (11:15)
[2020-12-12] MEDS ORDERED: methylPREDNISolone SOD SUCC 40 MG/ML VL IV ONE (11:15)
[2020-12-12] MEDS ORDERED: levoFLOXacin 500 MG TAB PO ONE (11:15)
[2020-12-12 11:17] LABS: BUN/Creatinine Ratio 20.7; Calcium 7.8 mg/dL (8.5-10.1); Potassium 3.9 mmol/L (3.5-5.1)
[2020-12-12] MEDS: IPRATROPIUM BROM 0.5 MG/2.5ML INH SOL NEB SCH ×2 (12:02→20:15)
[2020-12-12] MEDS: ALBUTEROL SULF 2.5 MG/0.5ML(0.5%) NEB SOLN NEB SCH ×2 (12:02→20:15)
[2020-12-12 13:16] VITALS: BP 118/59
[2020-12-12] MEDS: GABAPENTIN 300 MG CAP PO SCH ×2 (14:36→20:55)
[2020-12-12 15:43] LABS: Urine Bacteria FEW /hpf (None Seen); Urine Blood Negative /uL (Negative); Urine Mucus FEW (None Seen); Urine Specific Gravity 1.017 (1.001-1.035); Urine WBC 1 /hpf (0 - 5)
[2020-12-12 16:50] VITALS: BP 111/62
[2020-12-12] MEDS: ACETAMINOPHEN 500 MG TAB PO PRN (17:29)
[2020-12-12] MEDS: ATORVASTATIN 20 MG TAB PO SCH (20:55)
[2020-12-12] MEDS: metroNIDAZOLE 500 MG TAB PO SCH (20:55)
[2020-12-12] MEDS: methylPREDNISolone SOD SUCC 40 MG/ML VL IV SCH (20:55)
[2020-12-12 22:00] VITALS: BP 110/59
[2020-12-12] MEDS: ZOLPIDEM TARTRATE 5 MG TAB PO PRN (22:08)
[2020-12-13] MEDS: metroNIDAZOLE 500 MG TAB PO SCH ×3 (06:02→22:01)
[2020-12-13] MEDS: GABAPENTIN 300 MG CAP PO SCH ×3 (06:02→21:01)
[2020-12-13] MEDS: ALBUTEROL SULF 2.5 MG/0.5ML(0.5%) NEB SOLN NEB SCH ×3 (07:47→18:00)
[2020-12-13] MEDS: IPRATROPIUM BROM 0.5 MG/2.5ML INH SOL NEB SCH ×4 (07:47→18:00)
[2020-12-13 08:03] LABS: Basophils # (auto) 0 10 ^3/uL (0-0.2); Basophils % (auto) 0.3 % (0.0-2.0); Eosinophils # (auto) 0 10 ^3/uL (0-0.8); Hematocrit 36.6 % (36.0-46.0); Lymphocytes # (auto) 0.4 10 ^3/uL (0.4-5.4); Lymphocytes % (auto) 8.4 % (10.0-50.0); Mean Corpuscular Hemoglobin 30.7 pg (28.0-32.0); Mean Corpuscular Hgb Conc. 32.9 g/dL (32.0-36.0); Mean Corpuscular Volume 93.5 fL (80.0-100.0); Monocytes # (auto) 0.1 10 ^3/uL (0-1.3); Monocytes % (auto) 1.9 % (0.0-12.0); Neutrophils # (auto) 4.6 10 ^3/uL (1.6-8.6); Neutrophils % (auto) 89.4 % (37.0-80.0); Nucleated Red Blood Cells % 0.2 %; Red Blood Cells 3.92 10^6/uL (4.0-5.20); White Blood Cell 5.1 10^3/uL (4.4-10.8)
[2020-12-13 08:13] LABS: BUN/Creatinine Ratio 18.6; Calcium 7.9 mg/dL (8.5-10.1); Potassium 4.3 mmol/L (3.5-5.1)
[2020-12-13 09:00] VITALS: BP 114/68
[2020-12-13] MEDS: methylPREDNISolone SOD SUCC 40 MG/ML VL IV SCH ×2 (09:51→22:01)
[2020-12-13] MEDS: levoFLOXacin 500 MG TAB PO SCH (09:52)
[2020-12-13] MEDS: FAMOTIDINE 20 MG TAB PO SCH (09:52)
[2020-12-13] MEDS: ONDANSETRON HCL 4 MG/2 ML VIAL IV PRN ×2 (10:33→16:45)
[2020-12-13] MEDS ORDERED: ESOMEPRAZOLE 40 MG/5ml VIAL INJ IV ONE (10:45)
[2020-12-13 13:00] VITALS: BP 112/66
[2020-12-13] MEDS: HYDROcodone-ACET 5/325MG TAB PO PRN (16:46)
[2020-12-13 16:57] VITALS: BP 108/66
[2020-12-13] MEDS: SUCRALFATE 1 GM/10 ML ORAL SUSP PO SCH ×2 (17:44→20:59)
[2020-12-13] MEDS: ATORVASTATIN 20 MG TAB PO SCH (21:00)
[2020-12-13] MEDS: ZOLPIDEM TARTRATE 5 MG TAB PO PRN (21:00)
[2020-12-13 22:00] VITALS: BP 105/60
[2020-12-14 05:00] VITALS: BP 119/59
[2020-12-14] MEDS: metroNIDAZOLE 500 MG TAB PO SCH ×3 (05:59→21:09)
[2020-12-14] MEDS: GABAPENTIN 300 MG CAP PO SCH ×3 (05:59→21:09)
[2020-12-14] MEDS: SUCRALFATE 1 GM/10 ML ORAL SUSP PO SCH ×4 (06:00→21:08)
[2020-12-14] MEDS: IPRATROPIUM BROM 0.5 MG/2.5ML INH SOL NEB SCH ×3 (07:46→18:46)
[2020-12-14] MEDS: ALBUTEROL SULF 2.5 MG/0.5ML(0.5%) NEB SOLN NEB SCH ×3 (07:46→18:46)
[2020-12-14 08:54] VITALS: BP 128/72
[2020-12-14] MEDS: ESOMEPRAZOLE 40 MG/5ml VIAL INJ IV SCH (10:00)
[2020-12-14] MEDS: methylPREDNISolone SOD SUCC 40 MG/ML VL IV SCH ×2 (10:22→21:08)
[2020-12-14] MEDS: levoFLOXacin 500 MG TAB PO SCH (10:22)
[2020-12-14] MEDS: HYDROcodone-ACET 5/325MG TAB PO PRN ×2 (10:23→16:30)
[2020-12-14] MEDS: ONDANSETRON HCL 4 MG/2 ML VIAL IV PRN ×2 (10:23→16:30)
[2020-12-14 13:07] VITALS: BP 110/69
[2020-12-14 16:22] VITALS: BP 122/78
[2020-12-14] MEDS: ACETAMINOPHEN 500 MG TAB PO PRN (18:06)
[2020-12-14] MEDS: ZOLPIDEM TARTRATE 5 MG TAB PO PRN (20:15)
[2020-12-14] MEDS: ATORVASTATIN 20 MG TAB PO SCH (21:08)
[2020-12-14 22:00] VITALS: BP 108/66
[2020-12-15] VITALS (7 sets, daily range): BP systolic 106–139; BP diastolic 45–83
[2020-12-15] MEDS ORDERED: ALBUTEROL SULF 2.5 MG/0.5ML(0.5%) NEB SOLN NEB PRN (01:30)
[2020-12-15] MEDS: GABAPENTIN 300 MG CAP PO SCH ×3 (06:00→21:03)
[2020-12-15] MEDS: metroNIDAZOLE 500 MG TAB PO SCH ×3 (06:00→21:03)
[2020-12-15] MEDS: SUCRALFATE 1 GM/10 ML ORAL SUSP PO SCH ×4 (06:54→21:03)
[2020-12-15] MEDS: HYDROcodone-ACET 5/325MG TAB PO PRN (06:59)
[2020-12-15] MEDS ORDERED: SODIUM CHLORIDE LOCK 10 ML ONE (08:31)
[2020-12-15] MEDS ORDERED: LIDOCAINE VISCOUS 2% 15ML UD ONE (08:31)
[2020-12-15] MEDS: ESOMEPRAZOLE 40 MG/5ml VIAL INJ IV SCH (10:16)
[2020-12-15] MEDS: levoFLOXacin 500 MG TAB PO SCH (10:17)
[2020-12-15] MEDS: methylPREDNISolone SOD SUCC 40 MG/ML VL IV SCH (10:17)
[2020-12-15 10:34] LABS: INR 1.04 (0.9-1.15)
[2020-12-15] MEDS: fentaNYL CITRATE 100 MCG/2 ML VL ONE ×2 (13:34→13:37)
[2020-12-15] MEDS: diphenhdrAMINE HCL 50 MG/1 ML VL ONE ×2 (13:34→13:37)
[2020-12-15] MEDS: MIDAZOLAM HCL 5 MG/ML-1ML VIAL ONE ×2 (13:34→13:37)
[2020-12-15] MEDS: ACETAMINOPHEN 500 MG TAB PO PRN (19:51)
[2020-12-15] MEDS: ZOLPIDEM TARTRATE 5 MG TAB PO PRN (20:05)
[2020-12-15] MEDS: ATORVASTATIN 20 MG TAB PO SCH (21:03)
[2020-12-15] MEDS: DOCUSATE SOD 100 MG CAP PO PRN (23:07)
[2020-12-16] VITALS (7 sets, daily range): BP systolic 107–129; BP diastolic 56–76
[2020-12-16] MEDS: GABAPENTIN 300 MG CAP PO SCH ×3 (06:00→21:48)
[2020-12-16] MEDS: metroNIDAZOLE 500 MG TAB PO SCH ×3 (06:00→21:48)
[2020-12-16] MEDS: SUCRALFATE 1 GM/10 ML ORAL SUSP PO SCH ×4 (07:00→21:46)
[2020-12-16] MEDS: HYDROcodone-ACET 5/325MG TAB PO PRN ×2 (07:32→13:58)
[2020-12-16] MEDS: ONDANSETRON HCL 4 MG/2 ML VIAL IV PRN (08:13)
[2020-12-16] MEDS: levoFLOXacin 500 MG TAB PO SCH (09:58)
[2020-12-16] MEDS: ESOMEPRAZOLE 40 MG/5ml VIAL INJ IV SCH (09:58)
[2020-12-16] MEDS: predniSONE 20 MG TAB PO SCH (09:58)
[2020-12-16] MEDS: DOCUSATE SOD 100 MG CAP PO PRN (14:13)
[2020-12-16] MEDS: ACETAMINOPHEN 500 MG TAB PO PRN (15:38)
[2020-12-16] MEDS: LORazepam 0.5 MG TAB PO PRN (16:05)
[2020-12-16] MEDS ORDERED: LACTULOSE 20Gm/30ML SOLN PO PRN (17:45)
[2020-12-16] MEDS: ATORVASTATIN 20 MG TAB PO SCH (21:47)
[2020-12-16] MEDS: ZOLPIDEM TARTRATE 5 MG TAB PO PRN (21:48)
[2020-12-17] MEDS: ACETAMINOPHEN 500 MG TAB PO PRN ×2 (01:44→21:42)
[2020-12-17 05:00] VITALS: BP 132/78
[2020-12-17] MEDS: SUCRALFATE 1 GM/10 ML ORAL SUSP PO SCH ×4 (06:10→21:36)
[2020-12-17] MEDS: metroNIDAZOLE 500 MG TAB PO SCH ×3 (06:10→21:36)
[2020-12-17] MEDS: GABAPENTIN 300 MG CAP PO SCH ×3 (06:10→21:38)
[2020-12-17] MEDS: HYDROcodone-ACET 5/325MG TAB PO PRN (06:11)
[2020-12-17 08:41] VITALS: BP 122/74
[2020-12-17] MEDS: ONDANSETRON HCL 4 MG/2 ML VIAL IV PRN ×2 (09:03→16:24)
[2020-12-17] MEDS: ESOMEPRAZOLE 40 MG/5ml VIAL INJ IV SCH (10:34)
[2020-12-17] MEDS: levoFLOXacin 500 MG TAB PO SCH (10:34)
[2020-12-17] MEDS: predniSONE 20 MG TAB PO SCH (10:34)
[2020-12-17 12:49] VITALS: BP 101/60
[2020-12-17] MEDS: LORazepam 0.5 MG TAB PO PRN (14:40)
[2020-12-17 17:00] VITALS: BP 117/73
[2020-12-17] MEDS: DOCUSATE SOD 100 MG CAP PO PRN (20:02)
[2020-12-17] MEDS: ATORVASTATIN 20 MG TAB PO SCH (21:36)
[2020-12-17] MEDS: ZOLPIDEM TARTRATE 5 MG TAB PO PRN (21:37)
[2020-12-17 22:00] VITALS: BP 100/56
[2020-12-18] VITALS (7 sets, daily range): BP systolic 102–124; BP diastolic 56–74
[2020-12-18] MEDS: LORazepam 0.5 MG TAB PO PRN ×2 (03:25→15:15)
[2020-12-18] MEDS: HYDROcodone-ACET 5/325MG TAB PO PRN ×2 (03:29→22:06)
[2020-12-18] MEDS: GABAPENTIN 300 MG CAP PO SCH ×3 (05:33→21:53)
[2020-12-18] MEDS: metroNIDAZOLE 500 MG TAB PO SCH ×3 (05:34→21:53)
[2020-12-18] MEDS: SUCRALFATE 1 GM/10 ML ORAL SUSP PO SCH ×4 (06:11→21:54)
[2020-12-18 07:17] LABS: Basophils # (auto) 0 10 ^3/uL (0-0.2); Basophils % (auto) 0.5 % (0.0-2.0); Eosinophils # (auto) 0 10 ^3/uL (0-0.8); Eosinophils % (auto) 0.6 % (0.0-7.0); Hematocrit 38.2 % (36.0-46.0); Hemoglobin 12.5 g/dL (12.2-16.2); Lymphocytes # (auto) 1.3 10 ^3/uL (0.4-5.4); Lymphocytes % (auto) 18.6 % (10.0-50.0); Mean Corpuscular Hemoglobin 30.5 pg (28.0-32.0); Mean Corpuscular Hgb Conc. 32.6 g/dL (32.0-36.0); Mean Corpuscular Volume 93.7 fL (80.0-100.0); Monocytes # (auto) 0.6 10 ^3/uL (0-1.3); Monocytes % (auto) 8.4 % (0.0-12.0); Neutrophils # (auto) 5.1 10 ^3/uL (1.6-8.6); Neutrophils % (auto) 71.9 % (37.0-80.0); Nucleated Red Blood Cells % 0.3 %; Red Blood Cells 4.08 10^6/uL (4.0-5.20); Red Cell Distribution Width 17.3 % (11.8-14.3); White Blood Cell 7.2 10^3/uL (4.4-10.8)
[2020-12-18 07:35] LABS: Potassium 3.8 mmol/L (3.5-5.1)
[2020-12-18 07:40] LABS: BUN/Creatinine Ratio 36.2; Calcium 8.5 mg/dL (8.5-10.1)
[2020-12-18] MEDS: ESOMEPRAZOLE 40 MG/5ml VIAL INJ IV SCH (09:30)
[2020-12-18] MEDS: levoFLOXacin 500 MG TAB PO SCH (09:30)
[2020-12-18] MEDS: predniSONE 20 MG TAB PO SCH (09:30)
[2020-12-18] MEDS: ONDANSETRON HCL 4 MG/2 ML VIAL IV PRN (16:23)
[2020-12-18] MEDS: ACETAMINOPHEN 500 MG TAB PO PRN (18:02)
[2020-12-18] MEDS: ATORVASTATIN 20 MG TAB PO SCH (21:53)
[2020-12-18] MEDS: ZOLPIDEM TARTRATE 5 MG TAB PO PRN (21:53)
[2020-12-19 05:00] VITALS: BP 118/70
[2020-12-19] MEDS: SUCRALFATE 1 GM/10 ML ORAL SUSP PO SCH ×2 (06:20→13:15)
[2020-12-19] MEDS: GABAPENTIN 300 MG CAP PO SCH ×2 (06:21→14:07)
[2020-12-19] MEDS: metroNIDAZOLE 500 MG TAB PO SCH ×2 (06:21→14:07)
[2020-12-19] MEDS: HYDROcodone-ACET 5/325MG TAB PO PRN ×2 (06:26→14:07)
[2020-12-19 08:00] VITALS: BP 96/62
[2020-12-19] MEDS: ONDANSETRON HCL 4 MG/2 ML VIAL IV PRN ×2 (08:03→14:07)
[2020-12-19 08:15] VITALS: BP 96/62
[2020-12-19] MEDS: levoFLOXacin 500 MG TAB PO SCH (10:10)
[2020-12-19] MEDS: ESOMEPRAZOLE 40 MG/5ml VIAL INJ IV SCH (10:10)
[2020-12-19] MEDS: predniSONE 20 MG TAB PO SCH (10:10)
[2020-12-19] MEDS: DOCUSATE SOD 100 MG CAP PO PRN (10:21)
[2021-01-11] MEDS ORDERED: SUCR1SUS16 PO (10:58)
[2021-01-11] MEDS ORDERED: PANT40TA2 PO (10:58)
[2021-03-28] MEDS ORDERED: VANC125PO PO (14:58)
[2021-03-28] MEDS ORDERED: PANT40TA2 PO (15:03)
[2021-03-29] MEDS ORDERED: VANC125PO PO (09:30)
[2021-03-30] MEDS ORDERED: ASPI-378 PO (13:57)
== END 2020-12-19 14:46 | disposition home or self-care (01) | DRG 391 ==
LOC: ER 13:20 → TELE 18:36 → TELE-EAST 20:25 → EAST 12-15 10:45
PROVIDERS: ADMIT Nurse Practitioner Acute Care; ATTEND Internal Medicine
PROC: 0DB68ZX Excision of Stomach, Via Natural or Artificial Opening Endoscopic, Diagnostic (ICD-10-PCS; 2020-12-15)
PROC: 0DB98ZX Excision of Duodenum, Via Natural or Artificial Opening Endoscopic, Diagnostic (ICD-10-PCS; principal; 2020-12-15 13:38)
DX: K29.00 Acute gastritis without bleeding (principal); J96.01 Acute respiratory failure with hypoxia; J18.9 Pneumonia, unspecified organism; J44.1 Chronic obstructive pulmonary disease with (acute) exacerbation; I50.42 Chronic combined systolic (congestive) and diastolic (congestive) heart failure; J44.0 Chronic obstructive pulmonary disease with (acute) lower respiratory infection; Z20.822 Contact with and (suspected) exposure to COVID-19; E66.9 Obesity, unspecified; E88.09 Other disorders of plasma-protein metabolism, not elsewhere classified; K21.9 Gastro-esophageal reflux disease without esophagitis; E78.5 Hyperlipidemia, unspecified; R19.7 Diarrhea, unspecified; F41.9 Anxiety disorder, unspecified; K44.9 Diaphragmatic hernia without obstruction or gangrene; K80.20 Calculus of gallbladder without cholecystitis without obstruction; K59.03 Drug induced constipation; T40.605A Adverse effect of unspecified narcotics, initial encounter; Y92.89 Other specified places as the place of occurrence of the external cause; Z68.38 Body mass index [BMI] 38.0-38.9, adult; Z88.8 Allergy status to other drugs, medicaments and biological substances
CPT/HCPCS: 36415; 36600; 43239; 71045; 73562; 74176; 78226; 80048; 80053; 81001; 82805; 83690; 83880; 84443; 84484; 85025; 85379; 85610; 86141; 87426; 93005; 94640; 96361; 96374; 97530; G0378; J2250; J2405

== ENCOUNTER 2021-01-09 11:24 | Inpatient (IN) | payer OTHER ==
[~2021-01-09] VITALS: Ht 160 cm; Wt 91.6 kg
[~2021-01-09 11:24] MED LIST changes: -MELO1TAB73 PO; -METO10TA3 PO; -TRAM50TA2 PO; -ZOLP10TA6 PO
[2021-01-09] MEDS ORDERED: PANTOPRAZOLE 40 MG/10 ML VIAL INJ IV STA (11:35)
[2021-01-09] MEDS ORDERED: SODIUM CHLORIDE 0.9% 500 ML IVB ONE (11:45)
[2021-01-09] MEDS ORDERED: MORPHINE SULFATE 4 MG/ML SYR/VIAL IV ONE (11:45)
[2021-01-09] MEDS ORDERED: ONDANSETRON HCL 4 MG/2 ML VIAL IV ONE (11:45)
[2021-01-09 12:21] LABS: Basophils # (auto) 0 10 ^3/uL (0-0.2); Basophils % (auto) 0.8 % (0.0-2.0); Eosinophils # (auto) 0.1 10 ^3/uL (0-0.8); Eosinophils % (auto) 3.1 % (0.0-7.0); Hematocrit 39.9 % (36.0-46.0); Lymphocytes # (auto) 1.2 10 ^3/uL (0.4-5.4); Lymphocytes % (auto) 30.5 % (10.0-50.0); Mean Corpuscular Hgb Conc. 32.4 g/dL (32.0-36.0); Mean Corpuscular Volume 95.6 fL (80.0-100.0); Monocytes # (auto) 0.4 10 ^3/uL (0-1.3); Monocytes % (auto) 11.2 % (0.0-12.0); Neutrophils # (auto) 2.1 10 ^3/uL (1.6-8.6); Neutrophils % (auto) 54.4 % (37.0-80.0); Nucleated Red Blood Cells % 0.2 %; Platelet Count (auto) 209 10^3/uL (140-450); Red Blood Cells 4.18 10^6/uL (4.0-5.20); Red Cell Distribution Width 15.9 % (11.8-14.3); White Blood Cell 3.9 10^3/uL (4.4-10.8)
[2021-01-09 12:44] LABS: Amylase 29 U/L (25-115); Anion Gap 5 (5-15); BUN/Creatinine Ratio 13.6; Blood Urea Nitrogen 8 mg/dL (7-18); Calcium 8.7 mg/dL (8.5-10.1); Carbon Dioxide 28 mmol/L (21-32); Chloride 107 mmol/L (98-107); GFR African American 128 mL/min; GFR Non-African American 106 mL/min; Glucose 90 mg/dL (74-106); Lipase 43 U/L (73-393); Potassium 3.6 mmol/L (3.5-5.1); Sodium 140 mmol/L (136-145)
[2021-01-09 12:56] LABS: Alanine Aminotransferase 18 U/L (13-56); Alkaline Phosphatase 67 U/L (45-117); Aspartate Aminotransferase 17 U/L (15-37); Bilirubin, Total 0.4 mg/dL (0.2-1.0); Total Protein 7.1 g/dL (6.4-8.2)
[2021-01-09 14:25] LABS: Urine WBC None Seen /hpf (0 - 5)
[2021-01-09] MEDS: SOD CHL 0.45% 1,000 ML IV SCH ×2 (14:29→21:42)
[2021-01-09 14:41] LABS: Urine Bacteria NONE SEEN /hpf (None Seen); Urine Blood TRACE /uL (Negative); Urine Mucus FEW (None Seen); Urine Specific Gravity 1.014 (1.001-1.035)
[2021-01-09] MEDS: MORPHINE SULF INJ 2 MG/ML SYRINGE 1ML IV PRN ×2 (14:42→21:12)
[2021-01-09] MEDS: ONDANSETRON HCL 4 MG/2 ML VIAL IV PRN ×3 (14:42→23:33)
[2021-01-09 16:45] VITALS: BP 131/60
[2021-01-09 17:00] VITALS: BP 131/60
[2021-01-09] MEDS ORDERED: SUCR1SUS16 PO (17:29)
[2021-01-09] MEDS ORDERED: PANT40TA2 PO (17:30)
[2021-01-09] MEDS: SUCRALFATE 1 GM/10 ML ORAL SUSP PO SCH ×2 (17:50→21:42)
[2021-01-09 18:00] VITALS: BP 122/87
[2021-01-09] MEDS ORDERED: DICYCLOMINE HCL 10 MG CAP PO ONE (18:30)
[2021-01-09] MEDS: ACETAMINOPHEN 500 MG TAB PO PRN (18:47)
[2021-01-09] MEDS: PANTOPRAZOLE 40 MG/10 ML VIAL INJ IV SCH (21:41)
[2021-01-09] MEDS: ZOLPIDEM TARTRATE 5 MG TAB PO SCH (21:42)
[2021-01-10] MEDS: LORazepam 0.5 MG TAB PO PRN ×3 (03:16→18:17)
[2021-01-10] MEDS: ACETAMINOPHEN 500 MG TAB PO PRN ×2 (03:58→17:30)
[2021-01-10 05:00] VITALS: BP 121/77
[2021-01-10] MEDS: SUCRALFATE 1 GM/10 ML ORAL SUSP PO SCH ×4 (05:46→21:12)
[2021-01-10] MEDS: ONDANSETRON HCL 4 MG/2 ML VIAL IV PRN ×2 (05:47→11:51)
[2021-01-10 09:00] VITALS: BP 146/72
[2021-01-10] MEDS: METOPROLOL SUCCINATE XL 50 MG TAB PO SCH (09:02)
[2021-01-10] MEDS: PANTOPRAZOLE 40 MG/10 ML VIAL INJ IV SCH ×2 (09:02→21:11)
[2021-01-10] MEDS: SOD CHL 0.45% 1,000 ML IV SCH (09:45)
[2021-01-10 13:00] VITALS: BP 128/71
[2021-01-10] MEDS ORDERED: ONDANSETRON HCL 4 MG/2 ML VIAL IV PRN (13:45)
[2021-01-10] MEDS ORDERED: GABAPENTIN 300 MG CAP PO ONE (15:15)
[2021-01-10 17:00] VITALS: BP 141/81
[2021-01-10] MEDS ORDERED: ALBUTEROL SULF 2.5 MG/0.5ML(0.5%) NEB SOLN NEB PRN (17:00)
[2021-01-10] MEDS ORDERED: IPRATROPIUM BROM 0.5 MG/2.5ML INH SOL NEB PRN (17:00)
[2021-01-10] MEDS ORDERED: SOD CHL 0.45% 1,000 ML IV SCH (17:00)
[2021-01-10 19:35] VITALS: BP 141/81
[2021-01-10] MEDS: TETRAHYDROZOLINE HCL 0.05% OPTH(EYE)SOL EACHEYE SCH (21:11)
[2021-01-10] MEDS: GABAPENTIN 300 MG CAP PO SCH (21:12)
[2021-01-10] MEDS: METOCLOPRAMIDE HCL 10 MG TAB PO SCH (21:12)
[2021-01-10] MEDS: ZOLPIDEM TARTRATE 5 MG TAB PO SCH (21:12)
[2021-01-10 21:59] VITALS: BP 121/73
[2021-01-11 04:48] VITALS: BP 109/56
[2021-01-11 05:53] LABS: Basophils # (auto) 0 10 ^3/uL (0-0.2); Basophils % (auto) 0.7 % (0.0-2.0); Eosinophils # (auto) 0.1 10 ^3/uL (0-0.8); Eosinophils % (auto) 2.5 % (0.0-7.0); Hematocrit 38.1 % (36.0-46.0); Hemoglobin 12.3 g/dL (12.2-16.2); Lymphocytes # (auto) 1.1 10 ^3/uL (0.4-5.4); Lymphocytes % (auto) 25.3 % (10.0-50.0); Mean Corpuscular Hemoglobin 30.8 pg (28.0-32.0); Mean Corpuscular Hgb Conc. 32.3 g/dL (32.0-36.0); Mean Corpuscular Volume 95.5 fL (80.0-100.0); Monocytes # (auto) 0.6 10 ^3/uL (0-1.3); Monocytes % (auto) 12.9 % (0.0-12.0); Neutrophils # (auto) 2.6 10 ^3/uL (1.6-8.6); Neutrophils % (auto) 58.6 % (37.0-80.0); Nucleated Red Blood Cells % 0.1 %; Platelet Count (auto) 218 10^3/uL (140-450); Red Blood Cells 3.98 10^6/uL (4.0-5.20); Red Cell Distribution Width 15.5 % (11.8-14.3); White Blood Cell 4.4 10^3/uL (4.4-10.8)
[2021-01-11] MEDS: GABAPENTIN 300 MG CAP PO SCH ×2 (05:57→13:48)
[2021-01-11] MEDS: METOCLOPRAMIDE HCL 10 MG TAB PO SCH ×2 (05:58→13:48)
[2021-01-11] MEDS: SUCRALFATE 1 GM/10 ML ORAL SUSP PO SCH ×3 (06:08→16:16)
[2021-01-11 06:13] LABS: Potassium 3.6 mmol/L (3.5-5.1)
[2021-01-11 06:15] LABS: BUN/Creatinine Ratio 10.5; Calcium 8.4 mg/dL (8.5-10.1); Magnesium 2.5 mg/dL (1.6-2.6)
[2021-01-11 08:12] VITALS: BP 110/55
[2021-01-11] MEDS: PANTOPRAZOLE 40 MG/10 ML VIAL INJ IV SCH (09:45)
[2021-01-11] MEDS: METOPROLOL SUCCINATE XL 50 MG TAB PO SCH (09:46)
[2021-01-11] MEDS: TETRAHYDROZOLINE HCL 0.05% OPTH(EYE)SOL EACHEYE SCH (09:47)
[2021-01-11] MEDS ORDERED: CITALOPRAM HYDROBR 20 MG TAB PO SCH (10:00)
[2021-01-11] MEDS ORDERED: PANT40TA2 PO (10:58)
[2021-01-11] MEDS ORDERED: SUCR1SUS16 PO (10:58)
[2021-01-11] MEDS: ACETAMINOPHEN 500 MG TAB PO PRN (12:54)
[2021-01-11 13:00] VITALS: BP 96/56
[2021-01-11] MEDS: LORazepam 0.5 MG TAB PO PRN (16:16)
[2021-01-11 16:46] VITALS: BP 107/55
== END 2021-01-11 18:30 | disposition home health service (06) | DRG 392 ==
LOC: ER 11:24 → OVERFLOW 13:36 → WEST WING 16:29
PROVIDERS: ADMIT Nurse Practitioner Acute Care; ATTEND Internal Medicine
DX: K29.00 Acute gastritis without bleeding (principal); I48.92 Unspecified atrial flutter; J96.10 Chronic respiratory failure, unspecified whether with hypoxia or hypercapnia; I44.0 Atrioventricular block, first degree; K21.9 Gastro-esophageal reflux disease without esophagitis; J44.9 Chronic obstructive pulmonary disease, unspecified; E66.9 Obesity, unspecified; I10 Essential (primary) hypertension; F41.9 Anxiety disorder, unspecified; G62.9 Polyneuropathy, unspecified; K44.9 Diaphragmatic hernia without obstruction or gangrene; E03.9 Hypothyroidism, unspecified; E78.5 Hyperlipidemia, unspecified; Z20.822 Contact with and (suspected) exposure to COVID-19; Z79.899 Other long term (current) drug therapy; Z80.0 Family history of malignant neoplasm of digestive organs; Z80.1 Family history of malignant neoplasm of trachea, bronchus and lung; Z80.3 Family history of malignant neoplasm of breast; Z80.41 Family history of malignant neoplasm of ovary; Z80.8 Family history of malignant neoplasm of other organs or systems; Z81.8 Family history of other mental and behavioral disorders; Z82.0 Family history of epilepsy and other diseases of the nervous system; Z82.3 Family history of stroke; Z82.49 Family history of ischemic heart disease and other diseases of the circulatory system; Z82.5 Family history of asthma and other chronic lower respiratory diseases; Z82.62 Family history of osteoporosis; Z83.3 Family history of diabetes mellitus; Z87.11 Personal history of peptic ulcer disease; Z87.891 Personal history of nicotine dependence; Z68.35 Body mass index [BMI] 35.0-35.9, adult; Z88.8 Allergy status to other drugs, medicaments and biological substances
CPT/HCPCS: 36415; 76705; 80048; 80053; 81001; 82150; 83690; 83735; 84484; 85025; 87081; 87426; 93005; 94640; 96361; 96374; 96375; 97163; C9113; G0378; J2405

== ENCOUNTER 2021-01-20 11:08 | Emergency (ER) | payer OTHER ==
[~2021-01-20] VITALS: Ht 157.5 cm; Wt 81.6 kg
[~2021-01-20 11:08] MED LIST changes: -OMEP-434 PO; -PANT1INJ3 PO; +PANT40TA2 PO; -PRED10TA PO; +SUCR1SUS16 PO
[2021-01-20 11:11] VITALS: BP 104/62
[2021-01-20 11:50] LABS: Basophils # (auto) 0 10 ^3/uL (0-0.2); Basophils % (auto) 0.4 % (0.0-2.0); Eosinophils # (auto) 0.1 10 ^3/uL (0-0.8); Eosinophils % (auto) 2.2 % (0.0-7.0); Hematocrit 38.2 % (36.0-46.0); Hemoglobin 12.4 g/dL (12.2-16.2); Lymphocytes # (auto) 1.7 10 ^3/uL (0.4-5.4); Lymphocytes % (auto) 39.7 % (10.0-50.0); Mean Corpuscular Hemoglobin 30.2 pg (28.0-32.0); Mean Corpuscular Hgb Conc. 32.4 g/dL (32.0-36.0); Monocytes # (auto) 0.6 10 ^3/uL (0-1.3); Monocytes % (auto) 13.4 % (0.0-12.0); Neutrophils # (auto) 1.9 10 ^3/uL (1.6-8.6); Neutrophils % (auto) 44.3 % (37.0-80.0); Nucleated Red Blood Cells % 0.1 %; Platelet Count (auto) 356 10^3/uL (140-450); Red Blood Cells 4.11 10^6/uL (4.0-5.20); Red Cell Distribution Width 14.9 % (11.8-14.3); White Blood Cell 4.3 10^3/uL (4.4-10.8)
[2021-01-20 11:57] LABS: Albumin 3.2 g/dL (3.4-5.0); Calcium 8.8 mg/dL (8.5-10.1); Potassium 3.7 mmol/L (3.5-5.1)
[2021-01-20] MEDS ORDERED: ONDANSETRON HCL 4 MG/2 ML VIAL IV ONE (12:00)
[2021-01-20 12:01] LABS: BUN/Creatinine Ratio 23.3; Bilirubin, Total 0.4 mg/dL (0.2-1.0); Total Protein 7.1 g/dL (6.4-8.2)
[2021-01-20 13:20] LABS: Magnesium 2.3 mg/dL (1.6-2.6)
== END 2021-01-20 13:42 | disposition left against medical advice (07) ==
LOC: ER 11:08
DX: R10.84 Generalized abdominal pain (principal); Z53.21 Procedure and treatment not carried out due to patient leaving prior to being seen by health care provider
CPT/HCPCS: 36415; 80053; 83690; 83735; 85025; 93005

== ENCOUNTER 2021-02-08 14:42 | Emergency (ER) | payer OTHER ==
[~2021-02-08] VITALS: Ht 160 cm; Wt 87.1 kg
[2021-02-08] MEDS ORDERED: MORPHINE SULF INJ 2 MG/ML SYRINGE 1ML IV ONE (15:45)
[2021-02-08 16:17] LABS: Basophils # (auto) 0 10 ^3/uL (0-0.2); Basophils % (auto) 0.9 % (0.0-2.0); Eosinophils # (auto) 0.1 10 ^3/uL (0-0.8); Eosinophils % (auto) 2.6 % (0.0-7.0); Hematocrit 39.2 % (36.0-46.0); Hemoglobin 12.9 g/dL (12.2-16.2); Lymphocytes # (auto) 1.8 10 ^3/uL (0.4-5.4); Lymphocytes % (auto) 44.3 % (10.0-50.0); Mean Corpuscular Hemoglobin 31.1 pg (28.0-32.0); Mean Corpuscular Hgb Conc. 32.8 g/dL (32.0-36.0); Monocytes # (auto) 0.4 10 ^3/uL (0-1.3); Monocytes % (auto) 9.6 % (0.0-12.0); Neutrophils # (auto) 1.8 10 ^3/uL (1.6-8.6); Neutrophils % (auto) 42.6 % (37.0-80.0); Nucleated Red Blood Cells % 0.4 %; Platelet Count (auto) 201 10^3/uL (140-450); Red Blood Cells 4.13 10^6/uL (4.0-5.20); Red Cell Distribution Width 14.4 % (11.8-14.3); White Blood Cell 4.2 10^3/uL (4.4-10.8)
[2021-02-08 16:31] LABS: Albumin 3.2 g/dL (3.4-5.0); Anion Gap 6 (5-15); Blood Urea Nitrogen 7 mg/dL (7-18); Calcium 8.8 mg/dL (8.5-10.1); Carbon Dioxide 30 mmol/L (21-32); Chloride 105 mmol/L (98-107); Glucose 89 mg/dL (74-106); Potassium 3.5 mmol/L (3.5-5.1); Sodium 141 mmol/L (136-145)
[2021-02-08 16:38] LABS: Alanine Aminotransferase 14 U/L (13-56); Alkaline Phosphatase 68 U/L (45-117); Aspartate Aminotransferase 22 U/L (15-37); BUN/Creatinine Ratio 12.3; Bilirubin, Total 0.6 mg/dL (0.2-1.0); GFR African American 133 mL/min; GFR Non-African American 110 mL/min; Total Protein 6.9 g/dL (6.4-8.2)
[2021-02-08] MEDS ORDERED: MORPHINE SULF INJ 2 MG/ML SYRINGE 1ML IM ONE (17:00)
[2021-02-08 18:43] VITALS: BP 143/98
[2021-02-08] MEDS ORDERED: ONDANSETRON HCL 4 MG/2 ML VIAL IM ONE (18:45)
== END 2021-02-08 20:17 | disposition left against medical advice (07) ==
LOC: ER 14:42
DX: M54.16 Radiculopathy, lumbar region (principal); J44.9 Chronic obstructive pulmonary disease, unspecified; K21.9 Gastro-esophageal reflux disease without esophagitis; E78.5 Hyperlipidemia, unspecified; I10 Essential (primary) hypertension; Z98.51 Tubal ligation status; Z88.6 Allergy status to analgesic agent
CPT/HCPCS: 36415; 72100; 74176; 80053; 84484; 85025; 93005; 96372; 99285; J2270; J2405

== ENCOUNTER 2021-03-19 15:20 | Inpatient (IN) | payer OTHER ==
[~2021-03-19] VITALS: Ht 160 cm; Wt 90.4 kg
[2021-03-19 15:55] LABS: Basophils # (auto) 0 10 ^3/uL (0-0.2); Basophils % (auto) 0.7 % (0.0-2.0); Eosinophils # (auto) 0.1 10 ^3/uL (0-0.8); Eosinophils % (auto) 2.1 % (0.0-7.0); Hematocrit 39.2 % (36.0-46.0); Hemoglobin 13.1 g/dL (12.2-16.2); Lymphocytes # (auto) 1.6 10 ^3/uL (0.4-5.4); Lymphocytes % (auto) 27.2 % (10.0-50.0); Mean Corpuscular Hemoglobin 30.6 pg (28.0-32.0); Mean Corpuscular Hgb Conc. 33.4 g/dL (32.0-36.0); Mean Corpuscular Volume 91.4 fL (80.0-100.0); Monocytes # (auto) 0.6 10 ^3/uL (0-1.3); Neutrophils # (auto) 3.6 10 ^3/uL (1.6-8.6); Red Blood Cells 4.28 10^6/uL (4.0-5.20); Red Cell Distribution Width 14.1 % (11.8-14.3)
[2021-03-19 16:12] LABS: Albumin 3.2 g/dL (3.4-5.0); Anion Gap 7 (5-15); Blood Urea Nitrogen 4 mg/dL (7-18); Calcium 8.7 mg/dL (8.5-10.1); Carbon Dioxide 26 mmol/L (21-32); Chloride 108 mmol/L (98-107); Glucose 96 mg/dL (74-106); Lipase 27 U/L (73-393); Potassium 3.4 mmol/L (3.5-5.1); Sodium 141 mmol/L (136-145)
[2021-03-19 16:23] LABS: Alanine Aminotransferase 13 U/L (13-56); Alkaline Phosphatase 79 U/L (45-117); Aspartate Aminotransferase 20 U/L (15-37); BUN/Creatinine Ratio 5.6; Bilirubin, Total 0.6 mg/dL (0.2-1.0); GFR African American 103 mL/min; GFR Non-African American 86 mL/min; Total Protein 7.3 g/dL (6.4-8.2)
[2021-03-19] MEDS ORDERED: POTASSIUM EFFERVESENT TAB 25 MEQ PO ONE (17:45)
[2021-03-19] MEDS ORDERED: metroNIDAZOLE 500MG/100ML 100 ML IV ONE (17:45)
[2021-03-19] MEDS ORDERED: SODIUM CHLORIDE 0.9% 1,000 ML IV ONE (17:45)
[2021-03-19] MEDS ORDERED: cefTRIAXone 1GM/50ML D5W 50 ML IV ONE (17:45)
[2021-03-19] MEDS ORDERED: MORPHINE SULF INJ 2 MG/ML SYRINGE 1ML IV PRN ×2 (19:30)
[2021-03-19] MEDS ORDERED: NITROGLYCERIN 0.4 MG SL TAB SL PRN (19:30)
[2021-03-19] MEDS: SODIUM CHLORIDE 0.9% 1,000 ML IV SCH (19:54)
[2021-03-19] MEDS: metroNIDAZOLE 500MG/100ML 100 ML IV SCH (22:00)
[2021-03-19 23:00] VITALS: BP 140/62
[2021-03-19] MEDS: ATORVASTATIN 20 MG TAB PO SCH (23:34)
[2021-03-20] MEDS ORDERED: ACETAMINOPHEN 325 MG TAB PO ONE (01:00)
[2021-03-20] MEDS: TEMAZEPAM 15 MG CAP PO PRN ×2 (01:18→21:46)
[2021-03-20] MEDS: ONDANSETRON HCL 4 MG/2 ML VIAL IV PRN ×3 (01:46→21:46)
[2021-03-20 05:00] VITALS: BP 118/69
[2021-03-20] MEDS: SODIUM CHLORIDE 0.9% 1,000 ML IV SCH ×2 (06:37→15:30)
[2021-03-20] MEDS: metroNIDAZOLE 500MG/100ML 100 ML IV SCH ×3 (06:37→21:45)
[2021-03-20 07:02] LABS: Urine Bacteria NONE SEEN /hpf (None Seen); Urine Blood Negative /uL (Negative); Urine Mucus FEW (None Seen); Urine Specific Gravity 1.014 (1.001-1.035); Urine WBC 1 /hpf (0 - 5)
[2021-03-20] MEDS: cefTRIAXone 1GM/50ML D5W 50 ML IV SCH (08:11)
[2021-03-20] MEDS: METOPROLOL SUCCINATE XL 50 MG TAB PO SCH (08:16)
[2021-03-20 09:00] VITALS: BP 131/61
[2021-03-20] MEDS ORDERED: KETOROLAC TROMETH 30 MG/ML 1ML VIAL IV PRN (11:45)
[2021-03-20 13:00] VITALS: BP 127/59
[2021-03-20] MEDS ORDERED: PANTOPRAZOLE 40 MG/10 ML VIAL INJ IV ONE (14:15)
[2021-03-20] MEDS ORDERED: IPRATROPIUM BROM 0.5 MG/2.5ML INH SOL NEB PRN (14:15)
[2021-03-20] MEDS ORDERED: ALBUTEROL SULF 2.5 MG/0.5ML(0.5%) NEB SOLN NEB PRN (14:15)
[2021-03-20 14:36] VITALS: BP 131/61
[2021-03-20 17:00] VITALS: BP 124/66
[2021-03-20] MEDS: SUCRALFATE 1 GM TAB PO SCH ×2 (17:13→21:45)
[2021-03-20] MEDS: KETOROLAC TROMETH 30 MG/ML 1ML VIAL IV PRN ×2 (17:13→23:38)
[2021-03-20] MEDS ORDERED: TRAM-297 PO (17:29)
[2021-03-20] MEDS: ATORVASTATIN 20 MG TAB PO SCH (21:46)
[2021-03-20] MEDS: GABAPENTIN 300 MG CAP PO SCH (21:46)
[2021-03-20 22:00] VITALS: BP 128/70
[2021-03-21] MEDS: SODIUM CHLORIDE 0.9% 1,000 ML IV SCH ×3 (03:46→16:58)
[2021-03-21 05:00] VITALS: BP 112/61
[2021-03-21] MEDS: metroNIDAZOLE 500MG/100ML 100 ML IV SCH ×3 (06:05→21:51)
[2021-03-21] MEDS: SUCRALFATE 1 GM TAB PO SCH ×4 (06:06→21:52)
[2021-03-21] MEDS: GABAPENTIN 300 MG CAP PO SCH ×3 (06:06→21:52)
[2021-03-21 06:12] LABS: BUN/Creatinine Ratio 10.3; Calcium 7.8 mg/dL (8.5-10.1)
[2021-03-21 06:21] LABS: Potassium 2.9 mmol/L (3.5-5.1)
[2021-03-21] MEDS ORDERED: POTASSIUM CHL 20 Meq TABLET PO ONE (06:30)
[2021-03-21] MEDS: KETOROLAC TROMETH 30 MG/ML 1ML VIAL IV PRN ×3 (06:52→20:23)
[2021-03-21 09:00] VITALS: BP 120/54
[2021-03-21] MEDS: cefTRIAXone 1GM/50ML D5W 50 ML IV SCH (09:02)
[2021-03-21] MEDS: PANTOPRAZOLE 40 MG/10 ML VIAL INJ IV SCH (09:03)
[2021-03-21] MEDS: CITALOPRAM HYDROBR 20 MG TAB PO SCH (09:04)
[2021-03-21] MEDS: METOPROLOL SUCCINATE XL 50 MG TAB PO SCH (09:06)
[2021-03-21] MEDS: ENOXAPARIN SOD 30 MG/0.3 ML SYRINGE SC SCH (09:12)
[2021-03-21] MEDS ORDERED: POTASSIUM CHL 20MEQ/100ML 100 ML IV ONE (10:00)
[2021-03-21] MEDS ORDERED: IOHEXOL 300 MG/ML 100ML BOTTLE IJ ONE (10:10)
[2021-03-21] MEDS ORDERED: POTASSIUM CHLORIDE 20 MEQ, LIDOCAINE 1% (LOCAL ANESTH.) 2 ML in SODIUM CHL 0.9% 100 ML IV ONE (11:00)
[2021-03-21 13:00] VITALS: BP 126/63
[2021-03-21] MEDS ORDERED: VANCOMYCIN HCL 125MG/5ML ORAL SOL PO ONE (15:30)
[2021-03-21] MEDS: ONDANSETRON HCL 4 MG/2 ML VIAL IV PRN (16:02)
[2021-03-21 17:00] VITALS: BP 130/75
[2021-03-21] MEDS: LORazepam 0.5 MG TAB PO PRN (20:25)
[2021-03-21] MEDS: VANCOMYCIN HCL 125MG/5ML ORAL SOL PO SCH (21:51)
[2021-03-21] MEDS: TEMAZEPAM 15 MG CAP PO PRN (21:52)
[2021-03-21] MEDS: ATORVASTATIN 20 MG TAB PO SCH (21:52)
[2021-03-21 22:00] VITALS: BP 143/78
[2021-03-22 05:00] VITALS: BP 122/56
[2021-03-22 05:46] LABS: Potassium 3.4 mmol/L (3.5-5.1)
[2021-03-22 05:53] LABS: BUN/Creatinine Ratio 6.1; Calcium 7.5 mg/dL (8.5-10.1); Magnesium 1.9 mg/dL (1.6-2.6)
[2021-03-22] MEDS: SODIUM CHLORIDE 0.9% 1,000 ML IV SCH ×2 (06:11→11:17)
[2021-03-22] MEDS: metroNIDAZOLE 500MG/100ML 100 ML IV SCH ×3 (06:20→22:00)
[2021-03-22] MEDS: VANCOMYCIN HCL 125MG/5ML ORAL SOL PO SCH ×4 (06:20→22:00)
[2021-03-22] MEDS: SUCRALFATE 1 GM TAB PO SCH ×4 (06:20→22:00)
[2021-03-22] MEDS: GABAPENTIN 300 MG CAP PO SCH ×3 (06:20→22:00)
[2021-03-22 08:38] LABS: Basophils # (auto) 0 10 ^3/uL (0-0.2); Basophils % (auto) 0.5 % (0.0-2.0); Eosinophils # (auto) 0.1 10 ^3/uL (0-0.8); Eosinophils % (auto) 3.7 % (0.0-7.0); Hematocrit 36.6 % (36.0-46.0); Hemoglobin 12.2 g/dL (12.2-16.2); Lymphocytes # (auto) 0.8 10 ^3/uL (0.4-5.4); Lymphocytes % (auto) 25.2 % (10.0-50.0); Mean Corpuscular Hemoglobin 30.5 pg (28.0-32.0); Mean Corpuscular Hgb Conc. 33.2 g/dL (32.0-36.0); Mean Corpuscular Volume 91.9 fL (80.0-100.0); Monocytes # (auto) 0.5 10 ^3/uL (0-1.3); Monocytes % (auto) 16.3 % (0.0-12.0); Neutrophils # (auto) 1.7 10 ^3/uL (1.6-8.6); Neutrophils % (auto) 54.3 % (37.0-80.0); Nucleated Red Blood Cells % 0.1 %; Red Blood Cells 3.99 10^6/uL (4.0-5.20); Red Cell Distribution Width 14.7 % (11.8-14.3)
[2021-03-22 09:00] VITALS: BP 120/58
[2021-03-22] MEDS: CITALOPRAM HYDROBR 20 MG TAB PO SCH (09:45)
[2021-03-22] MEDS: ENOXAPARIN SOD 30 MG/0.3 ML SYRINGE SC SCH (09:46)
[2021-03-22] MEDS: PANTOPRAZOLE 40 MG/10 ML VIAL INJ IV SCH (09:48)
[2021-03-22] MEDS: METOPROLOL SUCCINATE XL 50 MG TAB PO SCH (09:48)
[2021-03-22] MEDS: cefTRIAXone 1GM/50ML D5W 50 ML IV SCH (09:48)
[2021-03-22] MEDS ORDERED: POTASSIUM CHL 20 Meq TABLET PO ONE (10:00)
[2021-03-22] MEDS ORDERED: MAGNESIUM SULFATE 1GM/100ML 100 ML IV ONE (10:45)
[2021-03-22 13:00] VITALS: BP 118/62
[2021-03-22] MEDS: KETOROLAC TROMETH 30 MG/ML 1ML VIAL IV PRN (13:52)
[2021-03-22 17:00] VITALS: BP 128/65
[2021-03-22 22:00] VITALS: BP 152/74
[2021-03-22] MEDS: ATORVASTATIN 20 MG TAB PO SCH (22:00)
[2021-03-22] MEDS: TEMAZEPAM 15 MG CAP PO PRN (22:01)
[2021-03-23] MEDS: ONDANSETRON HCL 4 MG/2 ML VIAL IV PRN ×4 (00:25→18:19)
[2021-03-23] MEDS: SODIUM CHLORIDE 0.9% 1,000 ML IV SCH ×2 (04:10→11:15)
[2021-03-23 05:00] VITALS: BP 117/71
[2021-03-23] MEDS: GABAPENTIN 300 MG CAP PO SCH ×3 (06:02→21:59)
[2021-03-23] MEDS: metroNIDAZOLE 500MG/100ML 100 ML IV SCH ×3 (06:02→21:59)
[2021-03-23] MEDS: VANCOMYCIN HCL 125MG/5ML ORAL SOL PO SCH ×4 (06:02→21:59)
[2021-03-23] MEDS: SUCRALFATE 1 GM TAB PO SCH (06:35)
[2021-03-23 07:22] LABS: Potassium 3.7 mmol/L (3.5-5.1)
[2021-03-23 09:00] VITALS: BP 137/70
[2021-03-23] MEDS: ENOXAPARIN SOD 30 MG/0.3 ML SYRINGE SC SCH (10:00)
[2021-03-23] MEDS: CITALOPRAM HYDROBR 20 MG TAB PO SCH (10:00)
[2021-03-23] MEDS: METOPROLOL SUCCINATE XL 50 MG TAB PO SCH (10:00)
[2021-03-23] MEDS: KETOROLAC TROMETH 30 MG/ML 1ML VIAL IV PRN ×2 (10:00→18:19)
[2021-03-23] MEDS ORDERED: ACETAMINOPHEN 325 MG TAB PO PRN (10:15)
[2021-03-23 13:00] VITALS: BP 118/63
[2021-03-23 13:44] VITALS: BP 137/70
[2021-03-23 16:49] VITALS: BP 109/56
[2021-03-23 22:00] VITALS: BP 115/65
[2021-03-23] MEDS: FAMOTIDINE 20 MG TAB PO SCH (22:00)
[2021-03-23] MEDS: ATORVASTATIN 20 MG TAB PO SCH (22:00)
[2021-03-23] MEDS: TEMAZEPAM 15 MG CAP PO PRN (22:00)
[2021-03-24 05:00] VITALS: BP 120/69
[2021-03-24] MEDS: metroNIDAZOLE 500MG/100ML 100 ML IV SCH ×3 (06:09→22:00)
[2021-03-24] MEDS: VANCOMYCIN HCL 125MG/5ML ORAL SOL PO SCH ×4 (06:10→22:00)
[2021-03-24] MEDS: GABAPENTIN 300 MG CAP PO SCH ×3 (06:10→22:00)
[2021-03-24] MEDS: SODIUM CHLORIDE 0.9% 1,000 ML IV SCH (07:15)
[2021-03-24 09:00] VITALS: BP 110/58
[2021-03-24] MEDS: ENOXAPARIN SOD 30 MG/0.3 ML SYRINGE SC SCH (10:14)
[2021-03-24] MEDS: CITALOPRAM HYDROBR 20 MG TAB PO SCH (10:14)
[2021-03-24] MEDS: FAMOTIDINE 20 MG TAB PO SCH ×2 (10:14→22:00)
[2021-03-24] MEDS: METOPROLOL SUCCINATE XL 50 MG TAB PO SCH (10:14)
[2021-03-24] MEDS: KETOROLAC TROMETH 30 MG/ML 1ML VIAL IV PRN (12:30)
[2021-03-24 13:00] VITALS: BP 99/51
[2021-03-24 14:53] LABS: Magnesium 1.7 mg/dL (1.6-2.6); Potassium 3.6 mmol/L (3.5-5.1)
[2021-03-24] MEDS: ONDANSETRON HCL 4 MG/2 ML VIAL IV PRN (16:07)
[2021-03-24 17:00] VITALS: BP 123/66
[2021-03-24] MEDS: PROMETHAZINE HCL 25 MG/ML 1ML IV PRN (17:14)
[2021-03-24 22:00] VITALS: BP 112/62
[2021-03-24] MEDS: ATORVASTATIN 20 MG TAB PO SCH (22:00)
[2021-03-25] MEDS: SODIUM CHLORIDE 0.9% 1,000 ML IV SCH ×2 (03:15→20:21)
[2021-03-25 05:00] VITALS: BP 109/61
[2021-03-25] MEDS: GABAPENTIN 300 MG CAP PO SCH ×3 (06:00→22:22)
[2021-03-25] MEDS: VANCOMYCIN HCL 125MG/5ML ORAL SOL PO SCH ×4 (06:00→22:21)
[2021-03-25] MEDS: metroNIDAZOLE 500MG/100ML 100 ML IV SCH ×3 (06:42→22:20)
[2021-03-25 09:00] VITALS: BP 104/62
[2021-03-25] MEDS: FAMOTIDINE 20 MG TAB PO SCH ×2 (10:00→22:22)
[2021-03-25] MEDS: CITALOPRAM HYDROBR 20 MG TAB PO SCH (10:00)
[2021-03-25] MEDS: METOPROLOL SUCCINATE XL 50 MG TAB PO SCH (10:00)
[2021-03-25] MEDS: ENOXAPARIN SOD 30 MG/0.3 ML SYRINGE SC SCH (10:00)
[2021-03-25 13:00] VITALS: BP 120/66
[2021-03-25] MEDS: PROMETHAZINE HCL 25 MG/ML 1ML IV PRN ×2 (14:00→20:31)
[2021-03-25 22:00] VITALS: BP 122/45
[2021-03-25] MEDS: ATORVASTATIN 20 MG TAB PO SCH (22:21)
[2021-03-25] MEDS: TEMAZEPAM 15 MG CAP PO PRN (22:22)
[2021-03-26] MEDS: PROMETHAZINE HCL 25 MG/ML 1ML IV PRN ×2 (02:38→10:01)
[2021-03-26] MEDS: SODIUM CHLORIDE 0.9% 1,000 ML IV SCH ×4 (03:44→13:30)
[2021-03-26 04:08] VITALS: BP 122/45
[2021-03-26 05:00] VITALS: BP 113/62
[2021-03-26] MEDS: GABAPENTIN 300 MG CAP PO SCH ×3 (06:24→22:39)
[2021-03-26] MEDS: VANCOMYCIN HCL 125MG/5ML ORAL SOL PO SCH ×4 (06:24→22:38)
[2021-03-26] MEDS: metroNIDAZOLE 500MG/100ML 100 ML IV SCH ×3 (06:24→22:38)
[2021-03-26 08:38] VITALS: BP 128/75
[2021-03-26] MEDS: FAMOTIDINE 20 MG TAB PO SCH (09:52)
[2021-03-26] MEDS: CITALOPRAM HYDROBR 20 MG TAB PO SCH (09:52)
[2021-03-26] MEDS: METOPROLOL SUCCINATE XL 50 MG TAB PO SCH (09:52)
[2021-03-26] MEDS: ENOXAPARIN SOD 30 MG/0.3 ML SYRINGE SC SCH (09:52)
[2021-03-26 11:16] LABS: Basophils # (auto) 0 10 ^3/uL (0-0.2); Basophils % (auto) 0.9 % (0.0-2.0); Eosinophils # (auto) 0.1 10 ^3/uL (0-0.8); Eosinophils % (auto) 2.2 % (0.0-7.0); Hematocrit 33.8 % (36.0-46.0); Hemoglobin 11.1 g/dL (12.2-16.2); Lymphocytes # (auto) 1.1 10 ^3/uL (0.4-5.4); Lymphocytes % (auto) 27.3 % (10.0-50.0); Mean Corpuscular Hemoglobin 30.3 pg (28.0-32.0); Mean Corpuscular Hgb Conc. 32.9 g/dL (32.0-36.0); Monocytes # (auto) 0.7 10 ^3/uL (0-1.3); Monocytes % (auto) 16.9 % (0.0-12.0); Neutrophils # (auto) 2.2 10 ^3/uL (1.6-8.6); Neutrophils % (auto) 52.7 % (37.0-80.0); Nucleated Red Blood Cells % 0.3 %; Red Blood Cells 3.67 10^6/uL (4.0-5.20); Red Cell Distribution Width 14.8 % (11.8-14.3); White Blood Cell 4.1 10^3/uL (4.4-10.8)
[2021-03-26 13:00] VITALS: BP 110/69
[2021-03-26] MEDS ORDERED: MAGNESIUM SULFATE 1GM/100ML 100 ML IV ONE (13:15)
[2021-03-26] MEDS: METOCLOPRAMIDE HCL 5MG/ml INJ 2ml VIAL IV SCH ×2 (14:14→22:38)
[2021-03-26] MEDS: PANTOPRAZOLE 40 MG TAB PO SCH (14:14)
[2021-03-26 17:00] VITALS: BP 113/74
[2021-03-26 19:07] LABS: Albumin 2.8 g/dL (3.4-5.0); Potassium 3.1 mmol/L (3.5-5.1)
[2021-03-26 19:12] LABS: Bilirubin, Total 0.3 mg/dL (0.2-1.0); Total Protein 6.4 g/dL (6.4-8.2)
[2021-03-26 22:00] VITALS: BP 118/58
[2021-03-26] MEDS: ATORVASTATIN 20 MG TAB PO SCH (22:39)
[2021-03-26] MEDS: TEMAZEPAM 15 MG CAP PO PRN (22:39)
[2021-03-27] MEDS: SODIUM CHLORIDE 0.9% 1,000 ML IV SCH ×2 (03:20→13:30)
[2021-03-27 05:00] VITALS: BP 155/49
[2021-03-27] MEDS: metroNIDAZOLE 500MG/100ML 100 ML IV SCH ×4 (06:00→21:19)
[2021-03-27] MEDS: VANCOMYCIN HCL 125MG/5ML ORAL SOL PO SCH ×4 (06:13→21:20)
[2021-03-27] MEDS: METOCLOPRAMIDE HCL 5MG/ml INJ 2ml VIAL IV SCH ×3 (06:13→21:19)
[2021-03-27] MEDS: GABAPENTIN 300 MG CAP PO SCH ×3 (06:14→21:20)
[2021-03-27 09:00] VITALS: BP 108/65
[2021-03-27] MEDS: ENOXAPARIN SOD 30 MG/0.3 ML SYRINGE SC SCH (09:16)
[2021-03-27] MEDS: CITALOPRAM HYDROBR 20 MG TAB PO SCH (09:16)
[2021-03-27] MEDS: PANTOPRAZOLE 40 MG TAB PO SCH (09:16)
[2021-03-27 10:05] LABS: Hematocrit 34.8 % (36.0-46.0); Hemoglobin 11.2 g/dL (12.2-16.2)
[2021-03-27 10:40] LABS: Calcium 8.1 mg/dL (8.5-10.1); Potassium 3.1 mmol/L (3.5-5.1)
[2021-03-27 13:00] VITALS: BP 115/66
[2021-03-27] MEDS ORDERED: POTASSIUM CHL 20 Meq TABLET PO ONE (13:30)
[2021-03-27] MEDS ORDERED: IOHEXOL 300 MG/ML 100ML BOTTLE IJ ONE (16:46)
[2021-03-27 17:00] VITALS: BP 135/76
[2021-03-27] MEDS: TEMAZEPAM 15 MG CAP PO PRN (21:20)
[2021-03-27] MEDS: ATORVASTATIN 20 MG TAB PO SCH (21:20)
[2021-03-27] MEDS: LORazepam 0.5 MG TAB PO PRN (21:20)
[2021-03-27 21:55] VITALS: BP 140/66
[2021-03-28 05:00] VITALS: BP 109/59
[2021-03-28] MEDS: METOCLOPRAMIDE HCL 5MG/ml INJ 2ml VIAL IV SCH ×3 (05:53→22:13)
[2021-03-28] MEDS: GABAPENTIN 300 MG CAP PO SCH ×3 (05:53→22:14)
[2021-03-28] MEDS: metroNIDAZOLE 500MG/100ML 100 ML IV SCH ×2 (05:53→14:30)
[2021-03-28] MEDS: VANCOMYCIN HCL 125MG/5ML ORAL SOL PO SCH ×4 (05:53→22:13)
[2021-03-28 08:08] LABS: BUN/Creatinine Ratio 7.9
[2021-03-28 08:38] VITALS: BP 113/64
[2021-03-28 09:11] LABS: Potassium 2.7 mmol/L (3.5-5.1)
[2021-03-28] MEDS: CITALOPRAM HYDROBR 20 MG TAB PO SCH (09:52)
[2021-03-28] MEDS: PANTOPRAZOLE 40 MG TAB PO SCH (09:52)
[2021-03-28] MEDS: SODIUM CHLORIDE 0.9% 1,000 ML IV SCH (09:53)
[2021-03-28] MEDS: ENOXAPARIN SOD 30 MG/0.3 ML SYRINGE SC SCH (09:53)
[2021-03-28] MEDS: SUCRALFATE 1 GM/10 ML ORAL SUSP PO SCH ×3 (11:15→22:13)
[2021-03-28] MEDS ORDERED: POTASSIUM CHL 20 Meq TABLET PO ONE (11:15)
[2021-03-28 12:55] VITALS: BP 119/69
[2021-03-28] MEDS ORDERED: VANC125PO PO (14:58)
[2021-03-28] MEDS ORDERED: PANT40TA2 PO (15:03)
[2021-03-28 17:19] VITALS: BP 130/68
[2021-03-28 22:00] VITALS: BP 137/75
[2021-03-28] MEDS: ATORVASTATIN 20 MG TAB PO SCH (22:14)
[2021-03-28] MEDS: TEMAZEPAM 15 MG CAP PO PRN (22:17)
[2021-03-29 05:00] VITALS: BP 127/67
[2021-03-29] MEDS: SODIUM CHLORIDE 0.9% 1,000 ML IV SCH (06:14)
[2021-03-29] MEDS: GABAPENTIN 300 MG CAP PO SCH ×3 (06:15→21:13)
[2021-03-29] MEDS: METOCLOPRAMIDE HCL 5MG/ml INJ 2ml VIAL IV SCH ×3 (06:15→21:12)
[2021-03-29] MEDS: VANCOMYCIN HCL 125MG/5ML ORAL SOL PO SCH ×4 (06:25→21:13)
[2021-03-29] MEDS: SUCRALFATE 1 GM/10 ML ORAL SUSP PO SCH ×4 (06:25→21:13)
[2021-03-29 09:00] VITALS: BP 129/69
[2021-03-29] MEDS ORDERED: POTASSIUM CHL 20 Meq TABLET PO ONE (09:30)
[2021-03-29] MEDS ORDERED: VANC125PO PO (09:30)
[2021-03-29] MEDS: PANTOPRAZOLE 40 MG TAB PO SCH (10:23)
[2021-03-29] MEDS: CITALOPRAM HYDROBR 20 MG TAB PO SCH (10:23)
[2021-03-29] MEDS: ENOXAPARIN SOD 30 MG/0.3 ML SYRINGE SC SCH (10:23)
[2021-03-29] MEDS ORDERED: ONDANSETRON HCL 4 MG/2 ML VIAL IV ONE (11:45)
[2021-03-29 13:19] VITALS: BP 131/69
[2021-03-29] MEDS ORDERED: HYDROcodone-ACET 5/325MG TAB PO ONE (16:15)
[2021-03-29 17:13] VITALS: BP 126/70
[2021-03-29] MEDS: ATORVASTATIN 20 MG TAB PO SCH (21:13)
[2021-03-29] MEDS: TEMAZEPAM 15 MG CAP PO PRN (21:13)
[2021-03-29 22:00] VITALS: BP 119/67
[2021-03-30 05:00] VITALS: BP 124/78
[2021-03-30] MEDS: VANCOMYCIN HCL 125MG/5ML ORAL SOL PO SCH ×2 (06:06→12:55)
[2021-03-30] MEDS: METOCLOPRAMIDE HCL 5MG/ml INJ 2ml VIAL IV SCH ×2 (06:06→14:06)
[2021-03-30] MEDS: GABAPENTIN 300 MG CAP PO SCH ×2 (06:07→14:06)
[2021-03-30] MEDS: SUCRALFATE 1 GM/10 ML ORAL SUSP PO SCH ×2 (06:17→12:47)
[2021-03-30 09:00] VITALS: BP 118/67
[2021-03-30] MEDS: ENOXAPARIN SOD 30 MG/0.3 ML SYRINGE SC SCH (09:39)
[2021-03-30] MEDS: CITALOPRAM HYDROBR 20 MG TAB PO SCH (09:39)
[2021-03-30] MEDS: PANTOPRAZOLE 40 MG TAB PO SCH (09:39)
[2021-03-30 13:00] VITALS: BP 117/72
[2021-03-30] MEDS ORDERED: ASPI-378 PO (13:57)
[2021-03-30 14:53] VITALS: BP 117/72
== END 2021-03-30 15:45 | disposition home health service (06) | DRG 372 ==
LOC: ER 15:20 → OVERFLOW 19:28 → WEST WING 22:47
PROVIDERS: ADMIT Nurse Practitioner Acute Care; ATTEND Internal Medicine
PROC: 05HB33Z Insertion of Infusion Device into Right Basilic Vein, Percutaneous Approach (ICD-10-PCS; principal; 2021-03-27)
PROC: B54MZZA Ultrasonography of Right Upper Extremity Veins, Guidance (ICD-10-PCS; 2021-03-27)
DX: A04.72 Enterocolitis due to Clostridium difficile, not specified as recurrent (principal); K57.32 Diverticulitis of large intestine without perforation or abscess without bleeding; J96.10 Chronic respiratory failure, unspecified whether with hypoxia or hypercapnia; J44.9 Chronic obstructive pulmonary disease, unspecified; E87.6 Hypokalemia; I10 Essential (primary) hypertension; K21.9 Gastro-esophageal reflux disease without esophagitis; E66.9 Obesity, unspecified; F41.9 Anxiety disorder, unspecified; G62.9 Polyneuropathy, unspecified; E78.5 Hyperlipidemia, unspecified; Z20.822 Contact with and (suspected) exposure to COVID-19; Z96.659 Presence of unspecified artificial knee joint; Z88.8 Allergy status to other drugs, medicaments and biological substances; Z91.013 Allergy to seafood; Z79.899 Other long term (current) drug therapy; Z80.3 Family history of malignant neoplasm of breast; Z80.41 Family history of malignant neoplasm of ovary; Z80.8 Family history of malignant neoplasm of other organs or systems; Z81.8 Family history of other mental and behavioral disorders; Z82.0 Family history of epilepsy and other diseases of the nervous system; Z82.3 Family history of stroke; Z82.49 Family history of ischemic heart disease and other diseases of the circulatory system; Z82.5 Family history of asthma and other chronic lower respiratory diseases; Z82.62 Family history of osteoporosis; Z83.3 Family history of diabetes mellitus; Z87.891 Personal history of nicotine dependence; Z98.51 Tubal ligation status; Z68.34 Body mass index [BMI] 34.0-34.9, adult
CPT/HCPCS: 36415; 74176; 74177; 80048; 80053; 81001; 83605; 83690; 83735; 84132; 84484; 85014; 85018; 85025; 85049; 87040; 87045; 87426; 87427; 87493; 93005; 93971; 96365; 96368; 97110; 97116; 97530; C9113; G0378; J0696; J1885; J2001; J2405; J3490

== ENCOUNTER 2021-05-09 08:47 | Emergency (ER) | payer OTHER ==
[~2021-05-09] VITALS: Ht 160 cm; Wt 63.5 kg
[~2021-05-09 08:47] MED LIST changes: -ALBU0.084 NEB; +ASPI-378 PO; -FLU220IH; +TRAM-297 PO; +VANC125PO PO
[2021-05-09 08:55] VITALS: BP 109/58
== END 2021-05-09 10:30 | disposition left against medical advice (07) ==
LOC: ER 08:47
DX: R10.9 Unspecified abdominal pain (principal); R19.7 Diarrhea, unspecified; Z53.21 Procedure and treatment not carried out due to patient leaving prior to being seen by health care provider
CPT/HCPCS: 93005

== ENCOUNTER 2021-05-12 14:45 | Inpatient (IN) | payer OTHER ==
[~2021-05-12] VITALS: Ht 160 cm; Wt 82.7 kg
[2021-05-12] MEDS ORDERED: SODIUM CHLORIDE 0.9% 1,000 ML IV ONE ×2 (15:30)
[2021-05-12 15:33] LABS: Basophils # (auto) 0.1 10 ^3/uL (0-0.2); Basophils % (auto) 0.5 % (0.0-2.0); Eosinophils # (auto) 0 10 ^3/uL (0-0.8); Hematocrit 35.1 % (36.0-46.0); Hemoglobin 11.5 g/dL (12.2-16.2); Lymphocytes % (auto) 6.7 % (10.0-50.0); Mean Corpuscular Hgb Conc. 32.7 g/dL (32.0-36.0); Mean Corpuscular Volume 88.6 fL (80.0-100.0); Monocytes # (auto) 0.8 10 ^3/uL (0-1.3); Monocytes % (auto) 5.1 % (0.0-12.0); Neutrophils % (auto) 87.7 % (37.0-80.0); Red Blood Cells 3.97 10^6/uL (4.0-5.20); Red Cell Distribution Width 14.8 % (11.8-14.3); White Blood Cell 14.9 10^3/uL (4.4-10.8)
[2021-05-12 15:50] LABS: INR 1.09 (0.9-1.15); Partial Thromboplastin Time 28.6 sec (23.6-33.0)
[2021-05-12 15:54] LABS: Albumin 2.7 g/dL (3.4-5.0)
[2021-05-12 16:00] LABS: BUN/Creatinine Ratio 6.3; Bilirubin, Total 0.5 mg/dL (0.2-1.0); Total Protein 7.1 g/dL (6.4-8.2)
[2021-05-12] MEDS ORDERED: ENOXAPARIN SOD 80 MG/0.8ML SYRINGE SC ONE (16:15)
[2021-05-12] MEDS ORDERED: cefTRIAXone 1GM/50ML D5W 50 ML IV ONE (16:15)
[2021-05-12] MEDS ORDERED: SODIUM CHLORIDE 0.9% 1,000 ML IV SCH (16:30)
[2021-05-12] MEDS ORDERED: LACTULOSE 20Gm/30ML SOLN PO PRN (16:30)
[2021-05-12] MEDS ORDERED: MORPHINE SULFATE INJECTION 2 MG/ML SYRG IV PRN ×2 (16:30)
[2021-05-12] MEDS ORDERED: ASPirin 81 mg TAB PO ONE (16:30)
[2021-05-12] MEDS ORDERED: ATORVASTATIN 20 MG TAB PO ONE (16:30)
[2021-05-12 16:37] LABS: Urine Bacteria MANY /hpf (None Seen); Urine Blood Negative /uL (Negative); Urine Hyaline Cast MOD /lpf (0 - 2); Urine Mucus FEW (None Seen); Urine WBC 83 /hpf (0 - 5)
[2021-05-12] MEDS: ACETAMINOPHEN 500 MG TAB PO PRN (17:49)
[2021-05-12] MEDS: ONDANSETRON HCL 4 MG/2 ML VIAL IV PRN ×2 (19:54→21:52)
[2021-05-12] MEDS: NITROGLYCERIN 0.4 MG SL TAB SL PRN (20:20)
[2021-05-12] MEDS: ENOXAPARIN SOD 60 MG/0.6 ML SYRINGE SC SCH (22:00)
[2021-05-12] MEDS: CARVEDILOL 3.125 MG TAB PO SCH (22:00)
[2021-05-12] MEDS: ATORVASTATIN 20 MG TAB PO SCH (22:00)
[2021-05-12] MEDS ORDERED: HYDROcodone-ACET 5/325MG TAB PO ONE (22:00)
[2021-05-13] MEDS: METOCLOPRAMIDE HCL 5MG/ml INJ 2ml VIAL IV PRN ×3 (00:51→12:46)
[2021-05-13] MEDS: NITROGLYCERIN 0.4 MG SL TAB SL PRN ×2 (01:59→02:20)
[2021-05-13] MEDS: traMADol HCL 50 MG TAB PO PRN (02:19)
[2021-05-13 04:14] LABS: Basophils # (auto) 0 10 ^3/uL (0-0.2); Basophils % (auto) 0.4 % (0.0-2.0); Eosinophils # (auto) 0 10 ^3/uL (0-0.8); Eosinophils % (auto) 0.1 % (0.0-7.0); Hematocrit 31.6 % (36.0-46.0); Hemoglobin 10.4 g/dL (12.2-16.2); Lymphocytes # (auto) 1.7 10 ^3/uL (0.4-5.4); Lymphocytes % (auto) 15.9 % (10.0-50.0); Mean Corpuscular Hemoglobin 29.6 pg (28.0-32.0); Mean Corpuscular Volume 89.8 fL (80.0-100.0); Monocytes # (auto) 1.4 10 ^3/uL (0-1.3); Monocytes % (auto) 12.3 % (0.0-12.0); Neutrophils # (auto) 7.9 10 ^3/uL (1.6-8.6); Neutrophils % (auto) 71.3 % (37.0-80.0); Red Blood Cells 3.52 10^6/uL (4.0-5.20); Red Cell Distribution Width 14.6 % (11.8-14.3)
[2021-05-13 04:41] LABS: Albumin 2.2 g/dL (3.4-5.0); Calcium 7.2 mg/dL (8.5-10.1)
[2021-05-13 04:45] LABS: BUN/Creatinine Ratio 12.7; Bilirubin, Total 0.5 mg/dL (0.2-1.0); Total Protein 6.1 g/dL (6.4-8.2)
[2021-05-13] MEDS ORDERED: POTASSIUM CHL 20 Meq TABLET PO ONE (07:00)
[2021-05-13] MEDS ORDERED: POTASSIUM EFFERVESENT TAB 25 MEQ GT ONE (10:00)
[2021-05-13] MEDS ORDERED: CLOPIDOGREL BISULFATE 75 MG TAB PO ONE (10:00)
[2021-05-13] MEDS: PANTOPRAZOLE 40 MG TAB PO SCH (10:00)
[2021-05-13] MEDS: CARVEDILOL 3.125 MG TAB PO SCH ×2 (10:00→21:33)
[2021-05-13] MEDS: ASPirin 81 mg TAB PO SCH (10:00)
[2021-05-13] MEDS: ENOXAPARIN SOD 60 MG/0.6 ML SYRINGE SC SCH (10:00)
[2021-05-13] MEDS: NITROGLYCERIN 0.2MG/HR TOPICAL PATCH TD SCH (10:00)
[2021-05-13] MEDS: ACETYLCYSTEINE ORAL for CIN 20%(200MG/ML) 4ML PO SCH ×2 (10:00→21:57)
[2021-05-13] MEDS ORDERED: cefTRIAXone 1GM/50ML D5W 50 ML IV ONE (11:15)
[2021-05-13] MEDS ORDERED: AZITHROMYCIN 500MG/ 250ML 250 ML IV ONE (12:00)
[2021-05-13 12:17] LABS: Magnesium 2.1 mg/dL (1.6-2.6)
[2021-05-13] MEDS ORDERED: METOCLOPRAMIDE HCL 5MG/ml INJ 2ml VIAL IV ONE (12:45)
[2021-05-13] MEDS ORDERED: ONDANSETRON HCL 4 MG/2 ML VIAL IV ONE (12:45)
[2021-05-13] MEDS: ONDANSETRON HCL 4 MG/2 ML VIAL IV PRN ×3 (12:46→21:35)
[2021-05-13] MEDS ORDERED: IODIXANOL 320MG/ML 100ML BTL IV ONE (13:06)
[2021-05-13] MEDS ORDERED: LIDOCAINE 2%HCL (LOCAL ANESTH.) INJ 20ML MDV ONE (13:06)
[2021-05-13] MEDS ORDERED: VERAPAMIL 2.5MG/ML INJ 2ML VIAL IV ONE (13:13)
[2021-05-13] MEDS ORDERED: fentaNYL CITRATE 100 MCG/2 ML VL ONE (13:13)
[2021-05-13] MEDS ORDERED: ANGIOMAX 250 MG VIAL IV ONE (13:13)
[2021-05-13] MEDS ORDERED: SODIUM CHL 0.9% 50 ML ONE (13:14)
[2021-05-13] MEDS ORDERED: MIDAZOLAM HCL 2MG/2ML 2ml VIAL (1mg/ml) ONE (13:14)
[2021-05-13] MEDS ORDERED: HEPARIN SODIUM (PORCINE) 5000 UNITS/ML 1ML VIAL ONE (13:15)
[2021-05-13] MEDS ORDERED: diphenhdrAMINE HCL 50 MG/1 ML VL ONE (13:43)
[2021-05-13 17:00] VITALS: BP 100/39
[2021-05-13] MEDS: HYDROmorphone HCL 2 MG/ML VL IV PRN (17:32)
[2021-05-13] MEDS: VANCOMYCIN HCL 125MG/5ML ORAL SOL PO SCH (18:26)
[2021-05-13] MEDS ORDERED: TRAZ-181 PO (18:39)
[2021-05-13 20:00] VITALS: BP 121/63
[2021-05-13] MEDS: ATORVASTATIN 20 MG TAB PO SCH (21:34)
[2021-05-13] MEDS: ZOLPIDEM TARTRATE 5 MG TAB PO PRN (21:34)
[2021-05-13 22:00] VITALS: BP 121/63
[2021-05-14] MEDS: VANCOMYCIN HCL 125MG/5ML ORAL SOL PO SCH ×3 (00:30→12:19)
[2021-05-14] MEDS: ONDANSETRON HCL 4 MG/2 ML VIAL IV PRN ×3 (04:12→21:44)
[2021-05-14] MEDS: HYDROmorphone HCL 2 MG/ML VL IV PRN (04:12)
[2021-05-14 05:00] VITALS: BP 109/63
[2021-05-14 08:00] VITALS: BP 118/57
[2021-05-14] MEDS: NITROGLYCERIN 0.2MG/HR TOPICAL PATCH TD SCH (08:50)
[2021-05-14] MEDS: traMADol HCL 50 MG TAB PO PRN ×2 (08:51→21:44)
[2021-05-14] MEDS: ASPirin 81 mg TAB PO SCH (08:51)
[2021-05-14] MEDS: cefTRIAXone 1GM/50ML D5W 50 ML IV SCH (08:51)
[2021-05-14] MEDS: CARVEDILOL 3.125 MG TAB PO SCH ×2 (08:51→21:43)
[2021-05-14] MEDS: PANTOPRAZOLE 40 MG TAB PO SCH (08:56)
[2021-05-14 09:00] VITALS: BP 118/57
[2021-05-14] MEDS: AZITHROMYCIN 500MG/ 250ML 250 ML IV SCH (10:00)
[2021-05-14] MEDS: ACETYLCYSTEINE ORAL for CIN 20%(200MG/ML) 4ML PO SCH ×2 (12:09→22:00)
[2021-05-14 13:00] VITALS: BP 102/62
[2021-05-14 14:05] LABS: Hematocrit 29.7 % (36.0-46.0); Hemoglobin 9.8 g/dL (12.2-16.2); Mean Corpuscular Hemoglobin 29.5 pg (28.0-32.0); Mean Corpuscular Volume 89.5 fL (80.0-100.0); Red Blood Cells 3.31 10^6/uL (4.0-5.20); Red Cell Distribution Width 15.1 % (11.8-14.3); White Blood Cell 7.4 10^3/uL (4.4-10.8)
[2021-05-14 14:09] LABS: Band Neutrophils % (manual) 0; Basophils % (manual) 0 (0.0-2.0); Blast Cells 0; Metamyelocytes % 0; Myelocytes % 0; Promyelocytes % 0; Reactive Lymphocytes 0
[2021-05-14 14:10] LABS: Albumin 2.4 g/dL (3.4-5.0); BUN/Creatinine Ratio 18.6; Calcium 8.2 mg/dL (8.5-10.1)
[2021-05-14 14:13] LABS: Bilirubin, Total 0.5 mg/dL (0.2-1.0); Total Protein 6.8 g/dL (6.4-8.2)
[2021-05-14] MEDS: ALPRAZolam 0.5 MG TAB PO SCH ×2 (15:05→21:44)
[2021-05-14 15:33] LABS: Eosinophils % (manual) 1 (0-7); Lymphocytes % (manual) 16 (10.0-50.0); Monocytes % (manual) 9 (0-12)
[2021-05-14 17:00] VITALS: BP 114/67
[2021-05-14] MEDS: metroNIDAZOLE 500MG/100ML 100 ML IV SCH (21:43)
[2021-05-14] MEDS: ATORVASTATIN 20 MG TAB PO SCH (21:44)
[2021-05-14 22:00] VITALS: BP 106/48
[2021-05-15 05:00] VITALS: BP 107/63
[2021-05-15] MEDS: metroNIDAZOLE 500MG/100ML 100 ML IV SCH ×3 (05:50→21:25)
[2021-05-15] MEDS: ALPRAZolam 0.5 MG TAB PO SCH ×3 (05:50→21:25)
[2021-05-15 09:00] VITALS: BP 105/42
[2021-05-15] MEDS: CARVEDILOL 3.125 MG TAB PO SCH ×2 (09:36→21:25)
[2021-05-15] MEDS: NITROGLYCERIN 0.2MG/HR TOPICAL PATCH TD SCH (09:36)
[2021-05-15] MEDS: cefTRIAXone 1GM/50ML D5W 50 ML IV SCH (09:36)
[2021-05-15] MEDS: ASPirin 81 mg TAB PO SCH (09:36)
[2021-05-15] MEDS: PANTOPRAZOLE 40 MG TAB PO SCH (09:37)
[2021-05-15] MEDS: AZITHROMYCIN 500MG/ 250ML 250 ML IV SCH (10:00)
[2021-05-15 13:00] VITALS: BP 99/41
[2021-05-15 17:00] VITALS: BP 107/54
[2021-05-15] MEDS: traMADol HCL 50 MG TAB PO PRN (19:42)
[2021-05-15] MEDS: ATORVASTATIN 20 MG TAB PO SCH (21:25)
[2021-05-15 22:00] VITALS: BP 113/56
[2021-05-15] MEDS ORDERED: HALOPERIDOL LACTATE 5 MG/ML INJ VIAL IM PRN (22:00)
[2021-05-16 05:00] VITALS: BP 118/64
[2021-05-16] MEDS: ALPRAZolam 0.5 MG TAB PO SCH ×3 (06:00→20:21)
[2021-05-16] MEDS: metroNIDAZOLE 500MG/100ML 100 ML IV SCH ×3 (06:01→22:00)
[2021-05-16 09:00] VITALS: BP 122/70
[2021-05-16] MEDS: PANTOPRAZOLE 40 MG TAB PO SCH (09:20)
[2021-05-16] MEDS: ASPirin 81 mg TAB PO SCH (09:20)
[2021-05-16] MEDS: AZITHROMYCIN 500MG/ 250ML 250 ML IV SCH (09:21)
[2021-05-16] MEDS: CARVEDILOL 3.125 MG TAB PO SCH ×2 (09:21→20:22)
[2021-05-16] MEDS: cefTRIAXone 1GM/50ML D5W 50 ML IV SCH (09:21)
[2021-05-16] MEDS: NITROGLYCERIN 0.2MG/HR TOPICAL PATCH TD SCH (09:24)
[2021-05-16] MEDS: traMADol HCL 50 MG TAB PO PRN ×2 (09:41→17:30)
[2021-05-16 12:15] LABS: Basophils # (auto) 0 10 ^3/uL (0-0.2); Basophils % (auto) 0.7 % (0.0-2.0); Eosinophils # (auto) 0.1 10 ^3/uL (0-0.8); Eosinophils % (auto) 1.7 % (0.0-7.0); Hematocrit 27.5 % (36.0-46.0); Hemoglobin 9.1 g/dL (12.2-16.2); Lymphocytes % (auto) 21.6 % (10.0-50.0); Mean Corpuscular Hemoglobin 29.5 pg (28.0-32.0); Mean Corpuscular Hgb Conc. 33.2 g/dL (32.0-36.0); Monocytes # (auto) 0.6 10 ^3/uL (0-1.3); Monocytes % (auto) 12.7 % (0.0-12.0); Neutrophils # (auto) 2.8 10 ^3/uL (1.6-8.6); Neutrophils % (auto) 63.3 % (37.0-80.0); Nucleated Red Blood Cells % 0.2 %; Red Cell Distribution Width 15.1 % (11.8-14.3); White Blood Cell 4.4 10^3/uL (4.4-10.8)
[2021-05-16 12:40] LABS: BUN/Creatinine Ratio 18.1; Calcium 8.5 mg/dL (8.5-10.1); Potassium 3.5 mmol/L (3.5-5.1)
[2021-05-16 13:00] VITALS: BP 127/74
[2021-05-16 16:53] VITALS: BP 105/70
[2021-05-16 20:00] VITALS: BP 114/42
[2021-05-16] MEDS: ACETAMINOPHEN 500 MG TAB PO PRN (20:22)
[2021-05-16] MEDS: ATORVASTATIN 20 MG TAB PO SCH (20:23)
[2021-05-16 22:00] VITALS: BP 114/42
[2021-05-17 05:00] VITALS: BP_SYST 111; BP_SYST 98; BP_DIAS 48; BP_DIAS 63
[2021-05-17] MEDS ORDERED: DIGOXIN (250MCG/ML) 2 ML AMPULE IV ONE ×2 (06:00→06:45)
[2021-05-17] MEDS: ALPRAZolam 0.5 MG TAB PO SCH ×3 (06:30→22:32)
[2021-05-17] MEDS: metroNIDAZOLE 500MG/100ML 100 ML IV SCH ×3 (06:30→22:32)
[2021-05-17 08:58] VITALS: BP 115/65
[2021-05-17] MEDS: cefTRIAXone 1GM/50ML D5W 50 ML IV SCH (09:40)
[2021-05-17] MEDS: ASPirin 81 mg TAB PO SCH (09:41)
[2021-05-17] MEDS: CARVEDILOL 3.125 MG TAB PO SCH ×2 (09:41→22:00)
[2021-05-17] MEDS: AZITHROMYCIN 500MG/ 250ML 250 ML IV SCH (09:41)
[2021-05-17] MEDS: PANTOPRAZOLE 40 MG TAB PO SCH (09:42)
[2021-05-17] MEDS: NITROGLYCERIN 0.2MG/HR TOPICAL PATCH TD SCH (09:42)
[2021-05-17] MEDS ORDERED: AMIODARONE 450mg/250ml AE 250 ML IV SCH ×3 (11:30→21:00)
[2021-05-17] MEDS ORDERED: POTASSIUM CHLORIDE 40 MEQ, LIDOCAINE 1% (LOCAL ANESTH.) 4 ML in SODIUM CHL 0.9% 250 ML IV ONE (11:30)
[2021-05-17] MEDS ORDERED: AMIODARONE HCL 150 MG in D5W 5% 100 ML IV ONE (11:30)
[2021-05-17 13:00] VITALS: BP 95/57
[2021-05-17 17:17] VITALS: BP 113/65
[2021-05-17] MEDS: traMADol HCL 50 MG TAB PO PRN (18:20)
[2021-05-17] MEDS: ONDANSETRON HCL 4 MG/2 ML VIAL IV PRN (20:21)
[2021-05-17] MEDS ORDERED: LORazepam 2MG/ML-1ML VIAL IV PRN (21:15)
[2021-05-17 22:00] VITALS: BP 117/68
[2021-05-17] MEDS: APIXABAN 5 MG TAB PO SCH (22:32)
[2021-05-17] MEDS: ATORVASTATIN 20 MG TAB PO SCH (22:32)
[2021-05-17] MEDS: AMIODARONE HCL 200 MG TAB PO SCH (22:32)
[2021-05-18] MEDS: traMADol HCL 50 MG TAB PO PRN ×2 (02:20→18:31)
[2021-05-18 05:00] VITALS: BP 112/56
[2021-05-18] MEDS: ALPRAZolam 0.5 MG TAB PO SCH (05:24)
[2021-05-18] MEDS: metroNIDAZOLE 500MG/100ML 100 ML IV SCH ×3 (05:25→22:22)
[2021-05-18 09:00] VITALS: BP 109/59
[2021-05-18] MEDS: ASPirin 81 mg TAB PO SCH (09:57)
[2021-05-18] MEDS: cefTRIAXone 1GM/50ML D5W 50 ML IV SCH (09:57)
[2021-05-18] MEDS: PANTOPRAZOLE 40 MG TAB PO SCH (09:58)
[2021-05-18] MEDS: APIXABAN 5 MG TAB PO SCH ×2 (09:58→22:22)
[2021-05-18] MEDS: NITROGLYCERIN 0.2MG/HR TOPICAL PATCH TD SCH (09:58)
[2021-05-18] MEDS: AMIODARONE HCL 200 MG TAB PO SCH ×2 (09:59→22:00)
[2021-05-18] MEDS: AZITHROMYCIN 500MG/ 250ML 250 ML IV SCH (10:51)
[2021-05-18 12:16] LABS: Albumin 1.9 g/dL (3.4-5.0); Calcium 8.3 mg/dL (8.5-10.1); Potassium 4.4 mmol/L (3.5-5.1)
[2021-05-18 12:19] LABS: BUN/Creatinine Ratio 10.4; Bilirubin, Total 0.4 mg/dL (0.2-1.0); Total Protein 6.5 g/dL (6.4-8.2)
[2021-05-18 13:00] VITALS: BP 96/60
[2021-05-18 13:20] LABS: Hematocrit 31.8 % (36.0-46.0); Hemoglobin 10.2 g/dL (12.2-16.2); Mean Corpuscular Hemoglobin 28.7 pg (28.0-32.0); Mean Corpuscular Hgb Conc. 31.9 g/dL (32.0-36.0); Mean Corpuscular Volume 89.8 fL (80.0-100.0); Red Blood Cells 3.54 10^6/uL (4.0-5.20); Red Cell Distribution Width 15.4 % (11.8-14.3); White Blood Cell 4.1 10^3/uL (4.4-10.8)
[2021-05-18 13:27] LABS: Band Neutrophils % (manual) 0; Basophils % (manual) 0 (0.0-2.0); Blast Cells 0; Metamyelocytes % 0; Myelocytes % 0; Promyelocytes % 0
[2021-05-18 13:48] LABS: Eosinophils % (manual) 6 (0-7); Lymphocytes % (manual) 17 (10.0-50.0); Monocytes % (manual) 22 (0-12); Reactive Lymphocytes 1
[2021-05-18 17:00] VITALS: BP 115/49
[2021-05-18 22:00] VITALS: BP 106/63
[2021-05-18] MEDS ORDERED: ATORVASTATIN 20 MG TAB PO SCH (22:00)
[2021-05-18] MEDS: ATORVASTATIN 20 MG TAB PO SCH (22:23)
[2021-05-19] MEDS: AMIODARONE HCL 200 MG TAB PO SCH ×5 (00:18→22:14)
[2021-05-19 05:00] VITALS: BP 116/65
[2021-05-19] MEDS: metroNIDAZOLE 500MG/100ML 100 ML IV SCH ×3 (05:37→22:13)
[2021-05-19 09:00] VITALS: BP 122/57
[2021-05-19] MEDS: cefTRIAXone 1GM/50ML D5W 50 ML IV SCH (09:23)
[2021-05-19] MEDS: NITROGLYCERIN 0.2MG/HR TOPICAL PATCH TD SCH (09:28)
[2021-05-19] MEDS ORDERED: ASPirin-EC 81 mg tab PO SCH (10:00)
[2021-05-19] MEDS: PANTOPRAZOLE 40 MG TAB PO SCH (10:00)
[2021-05-19] MEDS: APIXABAN 5 MG TAB PO SCH ×3 (10:00→22:13)
[2021-05-19] MEDS: ASPirin 81 mg TAB PO SCH (10:00)
[2021-05-19] MEDS: AZITHROMYCIN 500MG/ 250ML 250 ML IV SCH (10:24)
[2021-05-19 13:00] VITALS: BP 106/61
[2021-05-19] MEDS: traMADol HCL 50 MG TAB PO PRN (14:53)
[2021-05-19] MEDS: ONDANSETRON HCL 4 MG/2 ML VIAL IV PRN (14:54)
[2021-05-19 17:00] VITALS: BP 119/73
[2021-05-19 20:00] VITALS: BP 144/92
[2021-05-19 22:00] VITALS: BP 144/107
[2021-05-19] MEDS: HYDROmorphone HCL 2 MG/ML VL IV PRN (22:03)
[2021-05-19] MEDS: ATORVASTATIN 20 MG TAB PO SCH (22:14)
[2021-05-20] MEDS: HYDROmorphone HCL 2 MG/ML VL IV PRN ×4 (03:52→20:57)
[2021-05-20 05:00] VITALS: BP 114/44
[2021-05-20] MEDS: metroNIDAZOLE 500MG/100ML 100 ML IV SCH ×3 (05:31→21:24)
[2021-05-20 07:26] LABS: Chloride 105 mmol/L (98-107); Potassium 3.7 mmol/L (3.5-5.1); Sodium 141 mmol/L (136-145)
[2021-05-20 07:34] LABS: Albumin 2.7 g/dL (3.4-5.0); Anion Gap 8 (5-15); Blood Urea Nitrogen 4 mg/dL (7-18); Calcium 8.5 mg/dL (8.5-10.1); Carbon Dioxide 28 mmol/L (21-32); GFR African American 133 mL/min; GFR Non-African American 110 mL/min; Glucose 87 mg/dL (74-106)
[2021-05-20 07:37] LABS: Alanine Aminotransferase 130 U/L (13-56); Alkaline Phosphatase 143 U/L (45-117); Aspartate Aminotransferase 93 U/L (15-37); Bilirubin, Total 0.5 mg/dL (0.2-1.0); Total Protein 7.6 g/dL (6.4-8.2)
[2021-05-20] MEDS: cefTRIAXone 1GM/50ML D5W 50 ML IV SCH (08:42)
[2021-05-20 09:00] VITALS: BP 104/41
[2021-05-20] MEDS: AZITHROMYCIN 500MG/ 250ML 250 ML IV SCH (10:31)
[2021-05-20] MEDS: ASPirin 81 mg TAB PO SCH (10:32)
[2021-05-20] MEDS: APIXABAN 5 MG TAB PO SCH ×2 (10:32→21:24)
[2021-05-20] MEDS: NITROGLYCERIN 0.2MG/HR TOPICAL PATCH TD SCH (10:33)
[2021-05-20] MEDS: ONDANSETRON HCL 4 MG/2 ML VIAL IV PRN (10:33)
[2021-05-20] MEDS: PANTOPRAZOLE 40 MG TAB PO SCH (10:33)
[2021-05-20 10:41] LABS: Hematocrit 34.2 % (36.0-46.0); Mean Corpuscular Hemoglobin 29.1 pg (28.0-32.0); Mean Corpuscular Hgb Conc. 32.2 g/dL (32.0-36.0); Mean Corpuscular Volume 90.5 fL (80.0-100.0); Red Blood Cells 3.78 10^6/uL (4.0-5.20); Red Cell Distribution Width 15.6 % (11.8-14.3); White Blood Cell 3.6 10^3/uL (4.4-10.8)
[2021-05-20 10:47] LABS: Blast Cells 0; Promyelocytes % 0
[2021-05-20 11:51] LABS: Band Neutrophils % (manual) 1; Basophils % (manual) 1 (0.0-2.0); Eosinophils % (manual) 3 (0-7); Lymphocytes % (manual) 47 (10.0-50.0); Metamyelocytes % 1; Monocytes % (manual) 13 (0-12); Myelocytes % 1; Reactive Lymphocytes 1
[2021-05-20 13:00] VITALS: BP 121/63
[2021-05-20] MEDS: OXYBUTYNIN CHL 5 MG TAB PO SCH ×2 (14:53→21:23)
[2021-05-20 17:00] VITALS: BP 99/51
[2021-05-20 20:00] VITALS: BP 95/48
[2021-05-20] MEDS: ATORVASTATIN 20 MG TAB PO SCH (21:24)
[2021-05-20] MEDS: AMIODARONE HCL 200 MG TAB PO SCH (21:24)
[2021-05-20 22:00] VITALS: BP 95/48
[2021-05-20] MEDS: ZOLPIDEM TARTRATE 5 MG TAB PO PRN (23:40)
[2021-05-21] MEDS: ONDANSETRON HCL 4 MG/2 ML VIAL IV PRN ×3 (01:17→20:30)
[2021-05-21] MEDS: HYDROmorphone HCL 2 MG/ML VL IV PRN ×4 (01:37→20:29)
[2021-05-21 05:00] VITALS: BP 99/56
[2021-05-21 06:33] LABS: Hematocrit 34.5 % (36.0-46.0); Hemoglobin 10.7 g/dL (12.2-16.2); Mean Corpuscular Hemoglobin 29.1 pg (28.0-32.0); Mean Corpuscular Hgb Conc. 31.1 g/dL (32.0-36.0); Mean Corpuscular Volume 93.4 fL (80.0-100.0); Red Blood Cells 3.69 10^6/uL (4.0-5.20); Red Cell Distribution Width 16.2 % (11.8-14.3); White Blood Cell 3.4 10^3/uL (4.4-10.8)
[2021-05-21] MEDS: metroNIDAZOLE 500MG/100ML 100 ML IV SCH ×3 (06:37→22:14)
[2021-05-21 06:41] LABS: Basophils % (manual) 0 (0.0-2.0); Blast Cells 0; Metamyelocytes % 0; Myelocytes % 0; Promyelocytes % 0; Reactive Lymphocytes 0
[2021-05-21 07:03] LABS: Potassium 3.8 mmol/L (3.5-5.1)
[2021-05-21 07:08] LABS: Albumin 2.1 g/dL (3.4-5.0); BUN/Creatinine Ratio 4.2; Calcium 8.7 mg/dL (8.5-10.1)
[2021-05-21 07:11] LABS: Bilirubin, Total 0.4 mg/dL (0.2-1.0); Total Protein 6.3 g/dL (6.4-8.2)
[2021-05-21 08:12] LABS: Band Neutrophils % (manual) 1; Eosinophils % (manual) 6 (0-7); Lymphocytes % (manual) 24 (10.0-50.0); Monocytes % (manual) 18 (0-12)
[2021-05-21] MEDS: AMIODARONE HCL 200 MG TAB PO SCH ×2 (10:00→22:14)
[2021-05-21] MEDS: NITROGLYCERIN 0.2MG/HR TOPICAL PATCH TD SCH (10:00)
[2021-05-21] MEDS: OXYBUTYNIN CHL 5 MG TAB PO SCH ×2 (10:30→22:14)
[2021-05-21] MEDS: ASPirin 81 mg TAB PO SCH (10:30)
[2021-05-21] MEDS: PANTOPRAZOLE 40 MG TAB PO SCH (10:30)
[2021-05-21] MEDS: APIXABAN 5 MG TAB PO SCH ×2 (10:30→22:14)
[2021-05-21] MEDS: cefTRIAXone 1GM/50ML D5W 50 ML IV SCH (15:35)
[2021-05-21] MEDS: AZITHROMYCIN 500MG/ 250ML 250 ML IV SCH (16:05)
[2021-05-21 22:01] VITALS: BP 127/58
[2021-05-21] MEDS: ATORVASTATIN 20 MG TAB PO SCH (22:14)
[2021-05-21] MEDS: ZOLPIDEM TARTRATE 5 MG TAB PO PRN (22:14)
[2021-05-22] MEDS: HYDROmorphone HCL 2 MG/ML VL IV PRN ×3 (03:21→22:56)
[2021-05-22] MEDS: ONDANSETRON HCL 4 MG/2 ML VIAL IV PRN ×3 (03:21→22:55)
[2021-05-22] MEDS: metroNIDAZOLE 500MG/100ML 100 ML IV SCH ×3 (05:41→21:19)
[2021-05-22 06:09] VITALS: BP 120/75
[2021-05-22 07:41] LABS: Hematocrit 31.3 % (36.0-46.0); Mean Corpuscular Hemoglobin 29.1 pg (28.0-32.0); Mean Corpuscular Hgb Conc. 31.8 g/dL (32.0-36.0); Mean Corpuscular Volume 91.4 fL (80.0-100.0); Red Blood Cells 3.42 10^6/uL (4.0-5.20); Red Cell Distribution Width 15.9 % (11.8-14.3); White Blood Cell 4.3 10^3/uL (4.4-10.8)
[2021-05-22 07:51] LABS: Band Neutrophils % (manual) 0; Blast Cells 0; Metamyelocytes % 0; Myelocytes % 0; Promyelocytes % 0; Reactive Lymphocytes 0
[2021-05-22 08:17] LABS: Potassium 3.4 mmol/L (3.5-5.1)
[2021-05-22 08:24] LABS: Basophils % (manual) 1 (0.0-2.0); Eosinophils % (manual) 3 (0-7); Lymphocytes % (manual) 38 (10.0-50.0); Monocytes % (manual) 18 (0-12)
[2021-05-22 08:44] LABS: Albumin 2.3 g/dL (3.4-5.0); BUN/Creatinine Ratio 3.7; Calcium 8.8 mg/dL (8.5-10.1); Total Protein 6.4 g/dL (6.4-8.2)
[2021-05-22 08:50] LABS: Bilirubin, Total 0.4 mg/dL (0.2-1.0)
[2021-05-22 09:00] VITALS: BP 120/69
[2021-05-22] MEDS ORDERED: POTASSIUM EFFERVESENT TAB 25 MEQ GT ONE (09:45)
[2021-05-22] MEDS: ASPirin 81 mg TAB PO SCH (10:18)
[2021-05-22] MEDS: cefTRIAXone 1GM/50ML D5W 50 ML IV SCH (10:18)
[2021-05-22] MEDS: APIXABAN 5 MG TAB PO SCH ×2 (10:18→21:17)
[2021-05-22] MEDS: AMIODARONE HCL 200 MG TAB PO SCH ×2 (10:18→21:18)
[2021-05-22] MEDS: PANTOPRAZOLE 40 MG TAB PO SCH (10:18)
[2021-05-22] MEDS: OXYBUTYNIN CHL 5 MG TAB PO SCH ×2 (10:18→21:18)
[2021-05-22] MEDS: NITROGLYCERIN 0.2MG/HR TOPICAL PATCH TD SCH (10:23)
[2021-05-22] MEDS: AZITHROMYCIN 500MG/ 250ML 250 ML IV SCH (11:20)
[2021-05-22 13:00] VITALS: BP 139/81
[2021-05-22] MEDS ORDERED: PHENAZOPYRIDINE HCL 100 MG TAB PO ONE (15:00)
[2021-05-22 17:00] VITALS: BP 142/72
[2021-05-22] MEDS: traMADol HCL 50 MG TAB PO PRN (20:23)
[2021-05-22] MEDS: PHENAZOPYRIDINE HCL 100 MG TAB PO SCH (21:17)
[2021-05-22] MEDS: ATORVASTATIN 20 MG TAB PO SCH (21:18)
[2021-05-22] MEDS: ZOLPIDEM TARTRATE 5 MG TAB PO PRN (21:18)
[2021-05-22 22:00] VITALS: BP 144/87
[2021-05-22] MEDS: ACETAMINOPHEN 500 MG TAB PO PRN (23:51)
[2021-05-23] MEDS: ONDANSETRON HCL 4 MG/2 ML VIAL IV PRN ×2 (04:47→21:08)
[2021-05-23] MEDS: HYDROmorphone HCL 2 MG/ML VL IV PRN ×4 (04:48→21:08)
[2021-05-23 05:00] VITALS: BP 135/53
[2021-05-23] MEDS: metroNIDAZOLE 500MG/100ML 100 ML IV SCH (05:00)
[2021-05-23 05:50] LABS: Hematocrit 30.8 % (36.0-46.0); Mean Corpuscular Hemoglobin 29.1 pg (28.0-32.0); Mean Corpuscular Hgb Conc. 32.5 g/dL (32.0-36.0); Mean Corpuscular Volume 89.7 fL (80.0-100.0); Red Blood Cells 3.44 10^6/uL (4.0-5.20); Red Cell Distribution Width 15.5 % (11.8-14.3); White Blood Cell 3.4 10^3/uL (4.4-10.8)
[2021-05-23 06:24] LABS: Potassium 3.4 mmol/L (3.5-5.1)
[2021-05-23 06:24] LABS: Band Neutrophils % (manual) 0; Basophils % (manual) 0 (0.0-2.0); Blast Cells 0; Metamyelocytes % 0; Myelocytes % 0; Promyelocytes % 0; Reactive Lymphocytes 0
[2021-05-23 06:28] LABS: Albumin 2.3 g/dL (3.4-5.0); BUN/Creatinine Ratio 4.3; Calcium 8.7 mg/dL (8.5-10.1)
[2021-05-23 06:31] LABS: Bilirubin, Total 0.4 mg/dL (0.2-1.0); Total Protein 6.1 g/dL (6.4-8.2)
[2021-05-23 08:12] LABS: Eosinophils % (manual) 5 (0-7); Lymphocytes % (manual) 42 (10.0-50.0); Monocytes % (manual) 18 (0-12)
[2021-05-23] MEDS: cefTRIAXone 1GM/50ML D5W 50 ML IV SCH (08:35)
[2021-05-23] MEDS: AMIODARONE HCL 200 MG TAB PO SCH ×2 (08:35→21:08)
[2021-05-23] MEDS: APIXABAN 5 MG TAB PO SCH ×2 (08:35→21:08)
[2021-05-23] MEDS: ASPirin 81 mg TAB PO SCH (08:35)
[2021-05-23] MEDS: OXYBUTYNIN CHL 5 MG TAB PO SCH ×2 (08:37→21:09)
[2021-05-23] MEDS: PHENAZOPYRIDINE HCL 100 MG TAB PO SCH (08:37)
[2021-05-23] MEDS: PANTOPRAZOLE 40 MG TAB PO SCH (08:37)
[2021-05-23] MEDS: NITROGLYCERIN 0.2MG/HR TOPICAL PATCH TD SCH (08:48)
[2021-05-23] MEDS: AZITHROMYCIN 500MG/ 250ML 250 ML IV SCH (10:23)
[2021-05-23] MEDS ORDERED: POTASSIUM CHL 20 Meq TABLET PO ONE (10:30)
[2021-05-23] MEDS ORDERED: IPRATROPIUM BROM 0.5 MG/2.5ML INH SOL NEB PRN (12:00)
[2021-05-23] MEDS ORDERED: ALBUTEROL SULF 2.5 MG/0.5ML(0.5%) NEB SOLN NEB PRN (12:00)
[2021-05-23] MEDS: ZOLPIDEM TARTRATE 5 MG TAB PO PRN (21:08)
[2021-05-23] MEDS: ATORVASTATIN 20 MG TAB PO SCH (21:08)
[2021-05-23 22:00] VITALS: BP 149/82
[2021-05-23 23:30] VITALS: BP 130/92
[2021-05-24] MEDS ORDERED: TEMAZEPAM 15 MG CAP PO ONE
[2021-05-24] MEDS ORDERED: dilTIAZem 25 MG/5 ML VIAL IV ONE
[2021-05-24] MEDS: ONDANSETRON HCL 4 MG/2 ML VIAL IV PRN ×3 (01:25→19:35)
[2021-05-24] MEDS: HYDROmorphone HCL 2 MG/ML VL IV PRN ×4 (01:25→19:35)
[2021-05-24] MEDS: ACETAMINOPHEN 500 MG TAB PO PRN (04:40)
[2021-05-24 05:00] VITALS: BP 116/94
[2021-05-24 08:00] VITALS: BP 142/86
[2021-05-24 09:00] VITALS: BP 142/86
[2021-05-24 09:17] LABS: Hematocrit 35.2 % (36.0-46.0); Hemoglobin 11.2 g/dL (12.2-16.2)
[2021-05-24 09:37] LABS: Magnesium 2.2 mg/dL (1.6-2.6); Potassium 3.7 mmol/L (3.5-5.1)
[2021-05-24] MEDS: PANTOPRAZOLE 40 MG TAB PO SCH (09:41)
[2021-05-24] MEDS: APIXABAN 5 MG TAB PO SCH ×2 (09:41→21:03)
[2021-05-24] MEDS: ASPirin 81 mg TAB PO SCH (09:41)
[2021-05-24] MEDS: OXYBUTYNIN CHL 5 MG TAB PO SCH ×2 (09:41→21:03)
[2021-05-24] MEDS: AMIODARONE HCL 200 MG TAB PO SCH ×2 (09:41→21:03)
[2021-05-24] MEDS ORDERED: LIDOCAINE 2% JELLY 11ml (GLYDO) UR ONE (12:30)
[2021-05-24 13:00] VITALS: BP 126/68
[2021-05-24] MEDS ORDERED: dilTIAZem HCL 180MG ER CAP PO ONE (13:15)
[2021-05-24 17:00] VITALS: BP 120/80
[2021-05-24] MEDS: ATORVASTATIN 20 MG TAB PO SCH (21:03)
[2021-05-24] MEDS: ZOLPIDEM TARTRATE 5 MG TAB PO PRN (21:04)
[2021-05-25] MEDS: HYDROmorphone HCL 2 MG/ML VL IV PRN ×5 (03:25→23:46)
[2021-05-25 05:03] VITALS: BP 94/55
[2021-05-25 08:00] VITALS: BP 97/56
[2021-05-25] MEDS: APIXABAN 5 MG TAB PO SCH ×2 (09:51→21:46)
[2021-05-25] MEDS: AMIODARONE HCL 200 MG TAB PO SCH ×2 (09:51→21:46)
[2021-05-25] MEDS: OXYBUTYNIN CHL 5 MG TAB PO SCH ×2 (09:51→21:46)
[2021-05-25] MEDS: PANTOPRAZOLE 40 MG TAB PO SCH (09:51)
[2021-05-25] MEDS: ASPirin 81 mg TAB PO SCH (09:51)
[2021-05-25] MEDS: dilTIAZem HCL 180MG ER CAP PO SCH (09:52)
[2021-05-25] MEDS: POTASSIUM EFFERVESENT TAB 25 MEQ PO SCH (10:00)
[2021-05-25] MEDS ORDERED: dilTIAZem HCL 180MG ER CAP PO SCH (10:00)
[2021-05-25 10:57] LABS: Magnesium 2.2 mg/dL (1.6-2.6); Potassium 3.6 mmol/L (3.5-5.1)
[2021-05-25 12:00] VITALS: BP 140/59
[2021-05-25] MEDS: ATORVASTATIN 20 MG TAB PO SCH (21:46)
[2021-05-25] MEDS: PHENAZOPYRIDINE HCL 100 MG TAB PO SCH (21:47)
[2021-05-25] MEDS: ZOLPIDEM TARTRATE 5 MG TAB PO PRN (21:47)
[2021-05-25 22:00] VITALS: BP 106/93
[2021-05-26] MEDS: HYDROmorphone HCL 2 MG/ML VL IV PRN ×6 (02:47→23:12)
[2021-05-26 05:00] VITALS: BP 107/57
[2021-05-26 08:38] VITALS: BP 118/55
[2021-05-26] MEDS: POTASSIUM EFFERVESENT TAB 25 MEQ PO SCH (10:20)
[2021-05-26] MEDS: PHENAZOPYRIDINE HCL 100 MG TAB PO SCH ×2 (10:20→21:17)
[2021-05-26] MEDS: ASPirin 81 mg TAB PO SCH (10:20)
[2021-05-26] MEDS: OXYBUTYNIN CHL 5 MG TAB PO SCH ×2 (10:20→21:16)
[2021-05-26] MEDS: PANTOPRAZOLE 40 MG TAB PO SCH (10:20)
[2021-05-26] MEDS: AMIODARONE HCL 200 MG TAB PO SCH ×2 (10:21→21:16)
[2021-05-26] MEDS: APIXABAN 5 MG TAB PO SCH ×2 (10:21→21:16)
[2021-05-26] MEDS: ONDANSETRON HCL 4 MG/2 ML VIAL IV PRN ×3 (10:22→22:07)
[2021-05-26 12:57] VITALS: BP 136/70
[2021-05-26 16:21] VITALS: BP 105/55
[2021-05-26] MEDS: dilTIAZem HCL 180MG ER CAP PO SCH (16:33)
[2021-05-26] MEDS: ATORVASTATIN 20 MG TAB PO SCH (21:17)
[2021-05-26] MEDS: ZOLPIDEM TARTRATE 5 MG TAB PO PRN (21:17)
[2021-05-26 22:00] VITALS: BP 99/64
[2021-05-27] MEDS: HYDROmorphone HCL 2 MG/ML VL IV PRN ×6 (02:10→22:40)
[2021-05-27 05:44] VITALS: BP 89/50
[2021-05-27 09:00] VITALS: BP 104/45
[2021-05-27] MEDS: PANTOPRAZOLE 40 MG TAB PO SCH (11:30)
[2021-05-27] MEDS: ASPirin 81 mg TAB PO SCH (11:30)
[2021-05-27] MEDS: PHENAZOPYRIDINE HCL 100 MG TAB PO SCH ×2 (11:30→21:05)
[2021-05-27] MEDS: AMIODARONE HCL 200 MG TAB PO SCH ×2 (11:30→21:04)
[2021-05-27] MEDS: OXYBUTYNIN CHL 5 MG TAB PO SCH ×2 (11:30→21:04)
[2021-05-27] MEDS: POTASSIUM EFFERVESENT TAB 25 MEQ PO SCH (11:30)
[2021-05-27] MEDS: APIXABAN 5 MG TAB PO SCH ×2 (11:30→21:04)
[2021-05-27] MEDS: ONDANSETRON HCL 4 MG/2 ML VIAL IV PRN ×2 (11:45→19:30)
[2021-05-27 13:00] VITALS: BP 102/57
[2021-05-27 17:27] VITALS: BP 106/72
[2021-05-27] MEDS: dilTIAZem HCL 180MG ER CAP PO SCH (19:30)
[2021-05-27] MEDS: ATORVASTATIN 20 MG TAB PO SCH (21:04)
[2021-05-27] MEDS: ZOLPIDEM TARTRATE 5 MG TAB PO PRN (21:05)
[2021-05-27 22:00] VITALS: BP 99/53
[2021-05-28] MEDS: HYDROmorphone HCL 2 MG/ML VL IV PRN ×5 (01:45→18:45)
[2021-05-28] MEDS: ONDANSETRON HCL 4 MG/2 ML VIAL IV PRN (01:45)
[2021-05-28] MEDS: METOCLOPRAMIDE HCL 5MG/ml INJ 2ml VIAL IV PRN (04:40)
[2021-05-28 05:00] VITALS: BP 110/54
[2021-05-28] MEDS: OXYBUTYNIN CHL 5 MG TAB PO SCH ×2 (08:57→21:50)
[2021-05-28] MEDS: PANTOPRAZOLE 40 MG TAB PO SCH (08:57)
[2021-05-28] MEDS: ASPirin 81 mg TAB PO SCH (08:57)
[2021-05-28] MEDS: PHENAZOPYRIDINE HCL 100 MG TAB PO SCH ×2 (08:58→21:50)
[2021-05-28] MEDS: AMIODARONE HCL 200 MG TAB PO SCH ×2 (08:58→21:50)
[2021-05-28] MEDS: APIXABAN 5 MG TAB PO SCH ×2 (08:58→21:49)
[2021-05-28] MEDS: dilTIAZem HCL 180MG ER CAP PO SCH (08:59)
[2021-05-28] MEDS: POTASSIUM EFFERVESENT TAB 25 MEQ PO SCH (08:59)
[2021-05-28 09:30] VITALS: BP 119/48
[2021-05-28 13:14] VITALS: BP 106/56
[2021-05-28] MEDS: traMADol HCL 50 MG TAB PO PRN (15:40)
[2021-05-28 17:00] VITALS: BP 107/67
[2021-05-28 17:56] VITALS: BP 107/47
[2021-05-28] MEDS: ATORVASTATIN 20 MG TAB PO SCH (21:49)
[2021-05-28] MEDS: ZOLPIDEM TARTRATE 5 MG TAB PO PRN (21:50)
[2021-05-28 22:00] VITALS: BP 100/57
[2021-05-29 05:00] VITALS: BP 90/45
[2021-05-29 09:00] VITALS: BP 99/58
[2021-05-29] MEDS: ONDANSETRON HCL 4 MG/2 ML VIAL IV PRN (09:34)
[2021-05-29] MEDS: APIXABAN 5 MG TAB PO SCH ×2 (09:35→22:48)
[2021-05-29] MEDS: dilTIAZem HCL 180MG ER CAP PO SCH (09:35)
[2021-05-29] MEDS: POTASSIUM EFFERVESENT TAB 25 MEQ PO SCH ×2 (09:35→10:00)
[2021-05-29] MEDS: PANTOPRAZOLE 40 MG TAB PO SCH (09:35)
[2021-05-29] MEDS: OXYBUTYNIN CHL 5 MG TAB PO SCH ×2 (09:35→22:48)
[2021-05-29] MEDS: PHENAZOPYRIDINE HCL 100 MG TAB PO SCH (09:36)
[2021-05-29] MEDS: ASPirin 81 mg TAB PO SCH (09:36)
[2021-05-29] MEDS: AMIODARONE HCL 200 MG TAB PO SCH ×2 (09:36→22:48)
[2021-05-29] MEDS: traMADol HCL 50 MG TAB PO PRN ×3 (11:21→22:47)
[2021-05-29 13:00] VITALS: BP 99/53
[2021-05-29] MEDS ORDERED: FUROSEMIDE 20 MG TAB PO ONE (13:00)
[2021-05-29] MEDS: HYDROmorphone HCL 2 MG/ML VL IV PRN ×2 (15:37→19:59)
[2021-05-29 16:41] VITALS: BP 89/61
[2021-05-29 22:00] VITALS: BP 88/56
[2021-05-29] MEDS: ZOLPIDEM TARTRATE 5 MG TAB PO PRN (22:45)
[2021-05-29] MEDS: ATORVASTATIN 20 MG TAB PO SCH (22:49)
[2021-05-30] MEDS: HYDROmorphone HCL 2 MG/ML VL IV PRN ×2 (00:45→04:33)
[2021-05-30 05:00] VITALS: BP 119/48
[2021-05-30 09:00] VITALS: BP 111/67
[2021-05-30] MEDS: METOCLOPRAMIDE HCL 5MG/ml INJ 2ml VIAL IV PRN ×2 (09:20→15:52)
[2021-05-30] MEDS: dilTIAZem HCL 180MG ER CAP PO SCH (09:31)
[2021-05-30] MEDS: ASPirin 81 mg TAB PO SCH (09:31)
[2021-05-30] MEDS: POTASSIUM EFFERVESENT TAB 25 MEQ PO SCH (09:32)
[2021-05-30] MEDS: OXYBUTYNIN CHL 5 MG TAB PO SCH (09:32)
[2021-05-30] MEDS: APIXABAN 5 MG TAB PO SCH (09:32)
[2021-05-30] MEDS: AMIODARONE HCL 200 MG TAB PO SCH (09:32)
[2021-05-30] MEDS: PANTOPRAZOLE 40 MG TAB PO SCH (09:33)
[2021-05-30] MEDS ORDERED: FUROSEMIDE 20 MG TAB PO SCH (10:00)
[2021-05-30] MEDS ORDERED: LACTULOSE 20Gm/30ML SOLN PO ONE (10:15)
[2021-05-30 13:05] VITALS: BP 116/66
[2021-05-30 17:00] VITALS: BP 111/49
[2021-05-30] MEDS: traMADol HCL 50 MG TAB PO PRN (17:55)
== END 2021-05-30 20:45 | DRG 871 ==
LOC: ER 14:45 → TELE 16:19 → TELE-WESTW 05-13 15:49 → WEST WING 05-29 10:55
PROVIDERS: ADMIT Internal Medicine; ATTEND Family Medicine
PROC: 4A023N7 Measurement of Cardiac Sampling and Pressure, Left Heart, Percutaneous Approach (ICD-10-PCS; principal; 2021-05-13)
PROC: B211YZZ Fluoroscopy of Multiple Coronary Arteries using Other Contrast (ICD-10-PCS; 2021-05-13)
PROC: B215YZZ Fluoroscopy of Left Heart using Other Contrast (ICD-10-PCS; 2021-05-13)
DX: A41.9 Sepsis, unspecified organism (principal); J18.9 Pneumonia, unspecified organism; I21.A1 Myocardial infarction type 2; J96.21 Acute and chronic respiratory failure with hypoxia; I50.31 Acute diastolic (congestive) heart failure; G93.41 Metabolic encephalopathy; N17.9 Acute kidney failure, unspecified; J98.11 Atelectasis; N39.0 Urinary tract infection, site not specified; F11.20 Opioid dependence, uncomplicated; J44.0 Chronic obstructive pulmonary disease with (acute) lower respiratory infection; J44.1 Chronic obstructive pulmonary disease with (acute) exacerbation; E66.9 Obesity, unspecified; K57.90 Diverticulosis of intestine, part unspecified, without perforation or abscess without bleeding; F41.9 Anxiety disorder, unspecified; E78.5 Hyperlipidemia, unspecified; E78.00 Pure hypercholesterolemia, unspecified; Z20.822 Contact with and (suspected) exposure to COVID-19; E87.6 Hypokalemia; F02.80 Dementia in other diseases classified elsewhere, unspecified severity, without behavioral disturbance, psychotic disturbance, mood disturbance, and anxiety; G30.9 Alzheimer's disease, unspecified; G89.29 Other chronic pain; I11.0 Hypertensive heart disease with heart failure; I48.0 Paroxysmal atrial fibrillation; K21.9 Gastro-esophageal reflux disease without esophagitis; K44.9 Diaphragmatic hernia without obstruction or gangrene; K25.9 Gastric ulcer, unspecified as acute or chronic, without hemorrhage or perforation; K59.03 Drug induced constipation; M51.16 Intervertebral disc disorders with radiculopathy, lumbar region; E11.40 Type 2 diabetes mellitus with diabetic neuropathy, unspecified; Z79.82 Long term (current) use of aspirin; Z79.899 Other long term (current) drug therapy; Z80.0 Family history of malignant neoplasm of digestive organs; Z80.1 Family history of malignant neoplasm of trachea, bronchus and lung; Z80.3 Family history of malignant neoplasm of breast; Z80.41 Family history of malignant neoplasm of ovary; Z80.8 Family history of malignant neoplasm of other organs or systems; Z82.0 Family history of epilepsy and other diseases of the nervous system; Z82.3 Family history of stroke; Z82.49 Family history of ischemic heart disease and other diseases of the circulatory system; Z82.5 Family history of asthma and other chronic lower respiratory diseases; Z82.62 Family history of osteoporosis; Z83.3 Family history of diabetes mellitus; Z81.8 Family history of other mental and behavioral disorders; Z86.73 Personal history of transient ischemic attack (TIA), and cerebral infarction without residual deficits; Z90.710 Acquired absence of both cervix and uterus; Z68.34 Body mass index [BMI] 34.0-34.9, adult; Z87.891 Personal history of nicotine dependence; Z88.8 Allergy status to other drugs, medicaments and biological substances; Z91.013 Allergy to seafood
CPT/HCPCS: 36415; 70450; 70551; 71045; 76775; 80048; 80053; 80061; 81001; 82607; 82746; 82962; 83036; 83605; 83735; 83880; 84132; 84443; 84484; 85007; 85014; 85018; 85025; 85027; 85610; 85730; 86850; 86900; 86901; 87040; 87081; 87086; 87426; 87493; 92610; 93005; 93306; 93458; 93886; 95819; 96361; 96365; 96367; 96368; 96372; 96375; 97110; 97530; 99152; 99153; 99291; G0378; J0696; J2001; J2250; J2405; J3490; J7060; Q9967

== ENCOUNTER 2022-08-17 14:22 | Inpatient (IN) | payer OTHER ==
[~2022-08-17] VITALS: Ht 160 cm; Wt 85.5 kg
[~2022-08-17 14:22] MED LIST changes: -ATOR10TA PO; -METO-281 PO; -METO25TA93; +TRAZ-181 PO
[2022-08-17 19:04] LABS: Basophils # (auto) 0 10 ^3/uL (0-0.2); Basophils % (auto) 0.4 % (0.0-2.0); Eosinophils # (auto) 0 10 ^3/uL (0-0.8); Eosinophils % (auto) 0.3 % (0.0-7.0); Hematocrit 44.3 % (36.0-46.0); Hemoglobin 13.8 g/dL (12.2-16.2); Lymphocytes # (auto) 1.3 10 ^3/uL (0.4-5.4); Lymphocytes % (auto) 30.2 % (10.0-50.0); Mean Corpuscular Hemoglobin 29.3 pg (28.0-32.0); Mean Corpuscular Hgb Conc. 31.1 g/dL (32.0-36.0); Mean Corpuscular Volume 94.2 fL (80.0-100.0); Monocytes # (auto) 0.7 10 ^3/uL (0-1.3); Monocytes % (auto) 15.7 % (0.0-12.0); Neutrophils # (auto) 2.3 10 ^3/uL (1.6-8.6); Neutrophils % (auto) 53.4 % (37.0-80.0); Nucleated Red Blood Cells % 0.3 %; Red Blood Cells 4.71 10^6/uL (4.0-5.20); Red Cell Distribution Width 16.1 % (11.8-14.3); White Blood Cell 4.2 10^3/uL (4.4-10.8)
[2022-08-17 19:09] LABS: Urine Bacteria NONE SEEN /hpf (None Seen); Urine Blood Negative /uL (Negative); Urine Specific Gravity 1.017 (1.001-1.035); Urine WBC 14 /hpf (0 - 5)
[2022-08-17] MEDS ORDERED: ONDANSETRON HCL 4 MG/2 ML VIAL IV PRN (19:15)
[2022-08-17] MEDS ORDERED: ACETAMINOPHEN 325 MG TAB PO PRN (19:15)
[2022-08-17] MEDS ORDERED: DOCUSATE SOD 100 MG CAP PO PRN (19:15)
[2022-08-17] MEDS ORDERED: HYDROcodone-ACET 5/325MG TAB PO PRN (19:15)
[2022-08-17] MEDS ORDERED: NITROGLYCERIN 0.4 MG SL TAB SL PRN (19:15)
[2022-08-17] MEDS ORDERED: MORPHINE SULFATE INJ 2 MG/ml SYRG IV PRN (19:15)
[2022-08-17] MEDS ORDERED: cefTRIAXone 1GM/50ML D5W 50 ML IV ONE (19:30)
[2022-08-17] MEDS ORDERED: AZITHROMYCIN 500MG/ 250ML 250 ML IV ONE (19:30)
[2022-08-17 20:02] VITALS: BP 128/74
[2022-08-17 20:03] LABS: Albumin 3.4 g/dL (3.4-5.0); BUN/Creatinine Ratio 12.6; Magnesium 2.4 mg/dL (1.6-2.6); Potassium 4.4 mmol/L (3.5-5.1)
[2022-08-17 20:06] LABS: Bilirubin, Total 0.4 mg/dL (0.2-1.0); Total Protein 7.9 g/dL (6.4-8.2)
[2022-08-17] MEDS ORDERED: methylPREDNISolone SOD SUCC 40 MG/ML VL IV SCH (22:00)
[2022-08-17] MEDS: SUCRALFATE 1 GM/10 ML ORAL SUSP PO SCH (22:21)
[2022-08-18 04:04] LABS: Basophils # (auto) 0 10 ^3/uL (0-0.2); Basophils % (auto) 0.4 % (0.0-2.0); Eosinophils # (auto) 0 10 ^3/uL (0-0.8); Hematocrit 40.3 % (36.0-46.0); Hemoglobin 12.7 g/dL (12.2-16.2); Lymphocytes # (auto) 0.9 10 ^3/uL (0.4-5.4); Lymphocytes % (auto) 28.4 % (10.0-50.0); Mean Corpuscular Hemoglobin 29.4 pg (28.0-32.0); Mean Corpuscular Hgb Conc. 31.6 g/dL (32.0-36.0); Mean Corpuscular Volume 93.1 fL (80.0-100.0); Monocytes # (auto) 0.2 10 ^3/uL (0-1.3); Monocytes % (auto) 6.8 % (0.0-12.0); Neutrophils # (auto) 2.1 10 ^3/uL (1.6-8.6); Neutrophils % (auto) 64.4 % (37.0-80.0); Nucleated Red Blood Cells % 0.3 %; Red Blood Cells 4.33 10^6/uL (4.0-5.20); Red Cell Distribution Width 15.4 % (11.8-14.3); White Blood Cell 3.3 10^3/uL (4.4-10.8)
[2022-08-18 04:48] LABS: Anion Gap 7 (5-15); Carbon Dioxide 29 mmol/L (21-32); Chloride 106 mmol/L (98-107); Glucose 134 mg/dL (74-106); Potassium 4.2 mmol/L (3.5-5.1); Sodium 142 mmol/L (136-145)
[2022-08-18 04:49] LABS: Alanine Aminotransferase 28 U/L (13-56); Alkaline Phosphatase 80 U/L (45-117); Aspartate Aminotransferase 32 U/L (15-37); BUN/Creatinine Ratio 14.7; Bilirubin, Total 0.3 mg/dL (0.2-1.0); Blood Urea Nitrogen 10 mg/dL (7-18); Calcium 8.4 mg/dL (8.5-10.1); GFR African American 108 mL/min; GFR Non-African American 89 mL/min
[2022-08-18 04:50] LABS: Total Protein 6.5 g/dL (6.4-8.2)
[2022-08-18] MEDS ORDERED: IPRATROPIUM BROM 0.5 MG/2.5ML INH SOL NEB SCH (06:00)
[2022-08-18] MEDS ORDERED: ALBUTEROL SULF 2.5 MG/0.5ML(0.5%) NEB SOLN NEB SCH (06:00)
[2022-08-18] MEDS: SUCRALFATE 1 GM/10 ML ORAL SUSP PO SCH ×3 (06:34→23:07)
[2022-08-18] MEDS ORDERED: REMDESIVIR PER PHARMACY 0 ML IV SCH (09:45)
[2022-08-18] MEDS: cefTRIAXone 1GM/50ML D5W 50 ML IV SCH (09:50)
[2022-08-18] MEDS ORDERED: CITALOPRAM HYDROBR 20 MG TAB PO SCH (10:00)
[2022-08-18] MEDS: AZITHROMYCIN 500MG/ 250ML 250 ML IV SCH (10:00)
[2022-08-18] MEDS: ENOXAPARIN SOD 40 MG/0.4 ML SYRINGE SC SCH (10:12)
[2022-08-18] MEDS: ASPirin-EC 81 mg tab PO SCH (10:12)
[2022-08-18] MEDS: DexAMETHasone SOD PHOS 10MG/1ML VIAL INJ IV SCH (11:26)
[2022-08-18] MEDS: ALBUTEROL SULF HFA 90MCG INH 200DOSE IN SCH ×2 (14:35→22:00)
[2022-08-18] MEDS: GABAPENTIN 300 MG CAP PO SCH ×2 (14:45→23:07)
[2022-08-18] MEDS ORDERED: REMDESIVIR 100mg 100 MG in SODIUM CHL 0.9% 230 ML IV SCH (15:00)
[2022-08-18] MEDS ORDERED: REMDESIVIR 200 MG in NS 210ml LOADING DOSE ADULT IV ONE (15:00)
[2022-08-18] MEDS: HYDROcodone-ACET 5/325MG TAB PO PRN (21:22)
[2022-08-19 06:32] LABS: Albumin 2.8 g/dL (3.4-5.0); BUN/Creatinine Ratio 18.5; Calcium 8.6 mg/dL (8.5-10.1); Potassium 4.3 mmol/L (3.5-5.1)
[2022-08-19 06:40] LABS: Bilirubin, Total 0.2 mg/dL (0.2-1.0)
[2022-08-19] MEDS: SUCRALFATE 1 GM/10 ML ORAL SUSP PO SCH ×3 (06:56→21:22)
[2022-08-19] MEDS: GABAPENTIN 300 MG CAP PO SCH ×3 (06:57→21:22)
[2022-08-19] MEDS: ALBUTEROL SULF HFA 90MCG INH 200DOSE IN SCH ×3 (08:09→18:01)
[2022-08-19 09:07] VITALS: BP 121/49
[2022-08-19 10:30] VITALS: BP 121/49
[2022-08-19] MEDS: ENOXAPARIN SOD 40 MG/0.4 ML SYRINGE SC SCH (10:30)
[2022-08-19] MEDS: DexAMETHasone SOD PHOS 10MG/1ML VIAL INJ IV SCH (10:30)
[2022-08-19] MEDS: cefTRIAXone 1GM/50ML D5W 50 ML IV SCH (10:30)
[2022-08-19] MEDS: ASPirin-EC 81 mg tab PO SCH (10:30)
[2022-08-19 11:35] VITALS: BP 121/49
[2022-08-19 12:00] VITALS: BP_SYST 131; BP_SYST 95; BP_DIAS 53; BP_DIAS 54
[2022-08-19] MEDS: AZITHROMYCIN 500MG/ 250ML 250 ML IV SCH (13:01)
[2022-08-19] MEDS: REMDESIVIR 100mg 100 MG in SODIUM CHL 0.9% 230 ML IV SCH (16:05)
[2022-08-19] MEDS: HYDROcodone-ACET 5/325MG TAB PO PRN ×2 (16:19→21:23)
[2022-08-19] MEDS: ASCORBIC ACID 500 MG TAB PO SCH (21:22)
[2022-08-19] MEDS: ZOLPIDEM TARTRATE 5 MG TAB PO PRN (21:22)
[2022-08-19 22:00] VITALS: BP 135/57
[2022-08-20] VITALS (8 sets, daily range): BP systolic 111–146; BP diastolic 41–104
[2022-08-20] MEDS: SUCRALFATE 1 GM/10 ML ORAL SUSP PO SCH ×3 (05:44→21:34)
[2022-08-20] MEDS: GABAPENTIN 300 MG CAP PO SCH ×3 (05:45→21:34)
[2022-08-20] MEDS: ALBUTEROL SULF HFA 90MCG INH 200DOSE IN SCH ×3 (05:57→22:05)
[2022-08-20 06:26] LABS: Albumin 2.8 g/dL (3.4-5.0); Calcium 8.7 mg/dL (8.5-10.1); Potassium 5.1 mmol/L (3.5-5.1)
[2022-08-20 06:31] LABS: BUN/Creatinine Ratio 24.6; Bilirubin, Total 0.4 mg/dL (0.2-1.0); Total Protein 6.7 g/dL (6.4-8.2)
[2022-08-20] MEDS: ENOXAPARIN SOD 40 MG/0.4 ML SYRINGE SC SCH (09:07)
[2022-08-20] MEDS: ZINC SULFATE 220mg CAP or TAB PO SCH (09:07)
[2022-08-20] MEDS: CHOLECALCIFEROL (VITD3) 2,000 UNIT CAP/TAB PO SCH (09:07)
[2022-08-20] MEDS: cefTRIAXone 1GM/50ML D5W 50 ML IV SCH (09:07)
[2022-08-20] MEDS: DexAMETHasone SOD PHOS 10MG/1ML VIAL INJ IV SCH (09:07)
[2022-08-20] MEDS: ASCORBIC ACID 500 MG TAB PO SCH ×2 (09:07→21:34)
[2022-08-20] MEDS: PANTOPRAZOLE 40 MG TAB PO SCH (09:07)
[2022-08-20] MEDS: ASPirin-EC 81 mg tab PO SCH (09:07)
[2022-08-20] MEDS: AZITHROMYCIN 500MG/ 250ML 250 ML IV SCH (10:19)
[2022-08-20] MEDS: REMDESIVIR 100mg 100 MG in SODIUM CHL 0.9% 230 ML IV SCH (14:38)
[2022-08-20] MEDS: HYDROcodone-ACET 5/325MG TAB PO PRN (14:42)
[2022-08-20] MEDS: ZOLPIDEM TARTRATE 5 MG TAB PO PRN (21:40)
[2022-08-21] VITALS (7 sets, daily range): BP systolic 102–141; BP diastolic 53–68
[2022-08-21] MEDS: HYDROcodone-ACET 5/325MG TAB PO PRN ×2 (00:09→21:07)
[2022-08-21] MEDS: GABAPENTIN 300 MG CAP PO SCH ×3 (05:35→21:06)
[2022-08-21] MEDS: SUCRALFATE 1 GM/10 ML ORAL SUSP PO SCH ×3 (05:36→21:06)
[2022-08-21] MEDS: ALBUTEROL SULF HFA 90MCG INH 200DOSE IN SCH ×3 (06:20→21:58)
[2022-08-21 06:52] LABS: Albumin 2.8 g/dL (3.4-5.0); Calcium 8.8 mg/dL (8.5-10.1); Potassium 3.6 mmol/L (3.5-5.1)
[2022-08-21 06:57] LABS: BUN/Creatinine Ratio 23.2; Bilirubin, Total 0.2 mg/dL (0.2-1.0); Total Protein 6.7 g/dL (6.4-8.2)
[2022-08-21] MEDS: PANTOPRAZOLE 40 MG TAB PO SCH (09:04)
[2022-08-21] MEDS: ZINC SULFATE 220mg CAP or TAB PO SCH (09:04)
[2022-08-21] MEDS: CHOLECALCIFEROL (VITD3) 2,000 UNIT CAP/TAB PO SCH (09:04)
[2022-08-21] MEDS: ASCORBIC ACID 500 MG TAB PO SCH ×2 (09:04→21:06)
[2022-08-21] MEDS: ASPirin-EC 81 mg tab PO SCH (09:05)
[2022-08-21] MEDS: cefTRIAXone 1GM/50ML D5W 50 ML IV SCH (09:05)
[2022-08-21] MEDS: ENOXAPARIN SOD 40 MG/0.4 ML SYRINGE SC SCH (09:05)
[2022-08-21] MEDS: DexAMETHasone SOD PHOS 10MG/1ML VIAL INJ IV SCH (09:05)
[2022-08-21] MEDS: AZITHROMYCIN 500MG/ 250ML 250 ML IV SCH (10:44)
[2022-08-21] MEDS: REMDESIVIR 100mg 100 MG in SODIUM CHL 0.9% 230 ML IV SCH (16:21)
[2022-08-21] MEDS: ZOLPIDEM TARTRATE 5 MG TAB PO PRN (21:21)
[2022-08-22] VITALS (7 sets, daily range): BP systolic 109–143; BP diastolic 57–77
[2022-08-22] MEDS: SUCRALFATE 1 GM/10 ML ORAL SUSP PO SCH ×2 (05:20→13:29)
[2022-08-22] MEDS: GABAPENTIN 300 MG CAP PO SCH ×2 (05:21→13:29)
[2022-08-22] MEDS: HYDROcodone-ACET 5/325MG TAB PO PRN ×2 (05:22→15:59)
[2022-08-22 06:24] LABS: Albumin 2.8 g/dL (3.4-5.0); BUN/Creatinine Ratio 24.1; Calcium 8.8 mg/dL (8.5-10.1); Potassium 3.9 mmol/L (3.5-5.1)
[2022-08-22 06:27] LABS: Bilirubin, Total 0.3 mg/dL (0.2-1.0); Total Protein 6.7 g/dL (6.4-8.2)
[2022-08-22] MEDS: cefTRIAXone 1GM/50ML D5W 50 ML IV SCH (09:00)
[2022-08-22] MEDS: PANTOPRAZOLE 40 MG TAB PO SCH (09:45)
[2022-08-22] MEDS: CHOLECALCIFEROL (VITD3) 2,000 UNIT CAP/TAB PO SCH (09:45)
[2022-08-22] MEDS: DexAMETHasone SOD PHOS 10MG/1ML VIAL INJ IV SCH (09:45)
[2022-08-22] MEDS: ASCORBIC ACID 500 MG TAB PO SCH (09:45)
[2022-08-22] MEDS: ENOXAPARIN SOD 40 MG/0.4 ML SYRINGE SC SCH (09:45)
[2022-08-22] MEDS: ZINC SULFATE 220mg CAP or TAB PO SCH (09:46)
[2022-08-22] MEDS: ASPirin-EC 81 mg tab PO SCH (09:52)
[2022-08-22] MEDS ORDERED: AZITHROMYCIN 250 MG TAB PO SCH (10:00)
[2022-08-22] MEDS ORDERED: HYDR25SU21 PR (11:44)
[2022-08-22] MEDS ORDERED: DOCU-94 PO (11:44)
[2022-08-22] MEDS ORDERED: HYDROCORTISONE ACET 25 MG RECTAL SUPP PR ONE (11:45)
[2022-08-22] MEDS ORDERED: DOCUSATE SOD 100 MG CAP PO SCH (11:45)
[2022-08-22] MEDS: REMDESIVIR 100mg 100 MG in SODIUM CHL 0.9% 230 ML IV SCH (15:40)
== END 2022-08-22 18:12 | disposition home or self-care (01) | DRG 177 ==
LOC: ER 14:30 → TELE 19:14 → TELE-CENTR 08-19 08:52
PROVIDERS: ADMIT Nurse Practitioner Family; ATTEND Nurse Practitioner Acute Care
PROC: XW033E5 Introduction of Remdesivir Anti-infective into Peripheral Vein, Percutaneous Approach, New Technology Group 5 (ICD-10-PCS; principal; 2022-08-18)
DX: U07.1 COVID-19 (principal); J12.82 Pneumonia due to coronavirus disease 2019; J96.21 Acute and chronic respiratory failure with hypoxia; J44.0 Chronic obstructive pulmonary disease with (acute) lower respiratory infection; J98.11 Atelectasis; D72.819 Decreased white blood cell count, unspecified; E78.00 Pure hypercholesterolemia, unspecified; I10 Essential (primary) hypertension; E11.9 Type 2 diabetes mellitus without complications; K21.9 Gastro-esophageal reflux disease without esophagitis; M54.50 Low back pain, unspecified; R55 Syncope and collapse; F41.9 Anxiety disorder, unspecified; E66.9 Obesity, unspecified; Z86.73 Personal history of transient ischemic attack (TIA), and cerebral infarction without residual deficits; Z68.33 Body mass index [BMI] 33.0-33.9, adult; Z79.82 Long term (current) use of aspirin; Z79.899 Other long term (current) drug therapy; Z80.0 Family history of malignant neoplasm of digestive organs; Z80.1 Family history of malignant neoplasm of trachea, bronchus and lung; Z80.3 Family history of malignant neoplasm of breast; Z80.41 Family history of malignant neoplasm of ovary; Z80.8 Family history of malignant neoplasm of other organs or systems; Z81.8 Family history of other mental and behavioral disorders; Z82.0 Family history of epilepsy and other diseases of the nervous system; Z82.3 Family history of stroke; Z82.49 Family history of ischemic heart disease and other diseases of the circulatory system; Z82.5 Family history of asthma and other chronic lower respiratory diseases; Z82.62 Family history of osteoporosis; Z83.3 Family history of diabetes mellitus; Z88.5 Allergy status to narcotic agent; Z88.8 Allergy status to other drugs, medicaments and biological substances; Z91.013 Allergy to seafood
CPT/HCPCS: 36415; 71045; 80053; 81001; 82728; 83735; 85025; 85379; 87040; 87426; 87804; 93005; 93970; 94640; 96365; 96367; 96375; G0378; J0696; J1100; J2405

== ENCOUNTER 2022-12-14 07:38 | Inpatient (IN) | payer OTHER ==
[~2022-12-14] VITALS: Ht 160 cm; Wt 86.5 kg
[2022-12-14] VITALS (17 sets, daily range): BP systolic 109–247; BP diastolic 63–140
[~2022-12-14 07:38] MED LIST changes: +DOCU-94 PO; +HYDR25SU21 PR
[2022-12-14] MEDS ORDERED: HYDROcodone-ACET 5/325MG TAB PO ONE (08:30)
[2022-12-14 08:45] LABS: Urine Bacteria FEW /hpf (None Seen); Urine Blood TRACE /uL (Negative); Urine Specific Gravity 1.009 (1.001-1.035); Urine WBC 9 /hpf (0 - 5)
[2022-12-14] MEDS ORDERED: ONDANSETRON ODT 4 MG TAB PO ONE (08:45)
[2022-12-14 08:48] LABS: Basophils # (auto) 0 10 ^3/uL (0-0.2); Basophils % (auto) 0.4 % (0.0-2.0); Eosinophils # (auto) 0.1 10 ^3/uL (0-0.8); Hematocrit 36.2 % (36.0-46.0); Hemoglobin 11.9 g/dL (12.2-16.2); Lymphocytes # (auto) 2.1 10 ^3/uL (0.4-5.4); Lymphocytes % (auto) 31.3 % (10.0-50.0); Mean Corpuscular Hemoglobin 30.4 pg (28.0-32.0); Mean Corpuscular Volume 92.3 fL (80.0-100.0); Monocytes # (auto) 0.5 10 ^3/uL (0-1.3); Monocytes % (auto) 7.8 % (0.0-12.0); Neutrophils # (auto) 3.8 10 ^3/uL (1.6-8.6); Neutrophils % (auto) 58.5 % (37.0-80.0); Nucleated Red Blood Cells % 0.3 %; Red Blood Cells 3.92 10^6/uL (4.0-5.20); Red Cell Distribution Width 14.3 % (11.8-14.3); White Blood Cell 6.6 10^3/uL (4.4-10.8)
[2022-12-14] MEDS ORDERED: metroNIDAZOLE 500MG/100ML 100 ML IV ONE (09:45)
[2022-12-14] MEDS ORDERED: SODIUM CHLORIDE 0.9% 1,000 ML IV ONE ×2 (09:45→17:15)
[2022-12-14] MEDS ORDERED: levoFLOXacin 500MG 100 ML IV ONE (09:45)
[2022-12-14 09:58] LABS: Albumin 3.2 g/dL (3.4-5.0); BUN/Creatinine Ratio 23.5 (10.0-20.0); Calcium 8.9 mg/dL (8.5-10.1); Potassium 3.8 mmol/L (3.5-5.1)
[2022-12-14 10:01] LABS: Bilirubin, Total 0.5 mg/dL (0.2-1.0); Total Protein 7.5 g/dL (6.4-8.2)
[2022-12-14] MEDS ORDERED: KETOROLAC TROMETH 30 MG/ML 1ML VIAL IV ONE (10:15)
[2022-12-14] MEDS ORDERED: IPRATROPIUM BROM 0.5 MG/2.5ML INH SOL NEB PRN (13:00)
[2022-12-14] MEDS ORDERED: ALBUTEROL SULF 2.5 MG/0.5ML(0.5%) NEB SOLN NEB PRN (13:00)
[2022-12-14] MEDS ORDERED: metroNIDAZOLE 500MG/100ML 100 ML IV SCH (14:00)
[2022-12-14] MEDS: SODIUM CHLORIDE 0.9% 1,000 ML IV SCH (16:01)
[2022-12-14] MEDS: ONDANSETRON HCL 4 MG/2 ML VIAL IV PRN (16:08)
[2022-12-14] MEDS: HYDROmorphone HCL 2 MG/ML VL/or syr IV PRN (16:32)
[2022-12-14] MEDS ORDERED: NALOXONE HCL 1MG/ML 2ML SYRINGE IV ONE (17:15)
[2022-12-14] MEDS ORDERED: LABETALOL HCL 5 MG/ML 4ML SYRINGE IV ONE (17:30)
[2022-12-14] MEDS ORDERED: VANCOMYCIN PER PHARMACY 0 MG IV SCH (17:30)
[2022-12-14] MEDS ORDERED: ONDANSETRON HCL 4 MG/2 ML VIAL ONE (17:33)
[2022-12-14] MEDS ORDERED: ETOMIDATE (2MG/ML) 20ML VIAL IV ONE ×2 (17:40→17:45)
[2022-12-14] MEDS ORDERED: SUCCINYLCHOLINE CHLORIDE 20 MG/ML 10ML VIAL IV ONE ×2 (17:41→17:45)
[2022-12-14] MEDS ORDERED: PROPOFOL 100 ML IV ONE (17:45)
[2022-12-14] MEDS: PROPOFOL 100 ML IV SCH ×2 (17:53→22:28)
[2022-12-14] MEDS: fentaNYL Drip 2500mCg/250mlNS 250 ML IV SCH (18:20)
[2022-12-14] MEDS ORDERED: fentaNYL Drip 2500mCg/250mlNS 250 ML IV ONE (18:28)
[2022-12-14 18:34] LABS: INR 1.62 (0.9-1.15)
[2022-12-14 18:40] LABS: Basophils # (auto) 0 10 ^3/uL (0-0.2); Basophils % (auto) 0.4 % (0.0-2.0); Eosinophils # (auto) 0.1 10 ^3/uL (0-0.8); Eosinophils % (auto) 1.3 % (0.0-7.0); Hematocrit 35.1 % (36.0-46.0); Hemoglobin 11.6 g/dL (12.2-16.2); Lymphocytes # (auto) 1.9 10 ^3/uL (0.4-5.4); Lymphocytes % (auto) 34.3 % (10.0-50.0); Mean Corpuscular Hemoglobin 30.4 pg (28.0-32.0); Mean Corpuscular Volume 92.2 fL (80.0-100.0); Monocytes # (auto) 0.4 10 ^3/uL (0-1.3); Monocytes % (auto) 7.6 % (0.0-12.0); Neutrophils # (auto) 3.1 10 ^3/uL (1.6-8.6); Neutrophils % (auto) 56.4 % (37.0-80.0); Nucleated Red Blood Cells % 0.2 %; Red Blood Cells 3.81 10^6/uL (4.0-5.20); Red Cell Distribution Width 14.2 % (11.8-14.3); White Blood Cell 5.5 10^3/uL (4.4-10.8)
[2022-12-14] MEDS ORDERED: LORazepam 2MG/ML-1ML VIAL IV PRN (19:00)
[2022-12-14] MEDS ORDERED: LABETALOL HCL 5 MG/ML 4ML SYRINGE IV PRN (19:00)
[2022-12-14 19:20] LABS: Cholesterol < 50 mg/dL (< 200); HDL Cholesterol 26 mg/dL (40-59); LDL Cholesterol 23 mg/dL (< 100); Triglycerides 28 mg/dL (< 150)
[2022-12-14] MEDS ORDERED: IOHEXOL 350 MG/ML 100ML IJ ONE (19:25)
[2022-12-14] MEDS: VANCOMYCIN 1GM/250ML 250 ML IV SCH (19:30)
[2022-12-14] MEDS ORDERED: MIDAZOLAM DRIP 50 mg/50mL 100 ML IV ONE (19:58)
[2022-12-14] MEDS: MIDAZOLAM DRIP 50 mg/50mL 50 ML IV SCH ×2 (20:00→22:26)
[2022-12-14] MEDS ORDERED: MIDAZOLAM HCL 5 MG/ML-1ML VIAL IV ONE (20:30)
[2022-12-14] MEDS: CEFEPIME 2 GM in SODIUM CHL 0.9% 50 ML IV SCH (22:00)
[2022-12-14] MEDS: ATORVASTATIN 20 MG TAB PO SCH (22:00)
[2022-12-15] VITALS (91 sets, daily range): BP systolic 75–151; BP diastolic 31–82
[2022-12-15] MEDS: PROPOFOL 100 ML IV SCH ×3 (01:02→18:28)
[2022-12-15 03:55] LABS: Basophils # (auto) 0 10 ^3/uL (0-0.2); Basophils % (auto) 0.5 % (0.0-2.0); Eosinophils # (auto) 0.1 10 ^3/uL (0-0.8); Eosinophils % (auto) 2.6 % (0.0-7.0); Hematocrit 32.3 % (36.0-46.0); Hemoglobin 10.6 g/dL (12.2-16.2); Lymphocytes # (auto) 1.7 10 ^3/uL (0.4-5.4); Lymphocytes % (auto) 38.1 % (10.0-50.0); Mean Corpuscular Hemoglobin 30.4 pg (28.0-32.0); Mean Corpuscular Hgb Conc. 32.9 g/dL (32.0-36.0); Mean Corpuscular Volume 92.3 fL (80.0-100.0); Monocytes # (auto) 0.4 10 ^3/uL (0-1.3); Monocytes % (auto) 7.7 % (0.0-12.0); Neutrophils # (auto) 2.3 10 ^3/uL (1.6-8.6); Neutrophils % (auto) 51.1 % (37.0-80.0); Red Cell Distribution Width 13.9 % (11.8-14.3); White Blood Cell 4.6 10^3/uL (4.4-10.8)
[2022-12-15 04:41] LABS: Albumin 2.6 g/dL (3.4-5.0); BUN/Creatinine Ratio 23.4 (10.0-20.0); Calcium 8.2 mg/dL (8.5-10.1)
[2022-12-15 04:43] LABS: Bilirubin, Total 0.7 mg/dL (0.2-1.0); Total Protein 6.1 g/dL (6.4-8.2)
[2022-12-15] MEDS: MIDAZOLAM DRIP 50 mg/50mL 50 ML IV SCH ×4 (04:58→20:29)
[2022-12-15 05:28] LABS: Potassium 2.8 mmol/L (3.5-5.1)
[2022-12-15] MEDS: VANCOMYCIN 1GM/250ML 250 ML IV SCH (05:41)
[2022-12-15] MEDS: SODIUM CHLORIDE 0.9% 1,000 ML IV SCH ×3 (05:41→15:11)
[2022-12-15] MEDS: CEFEPIME 2 GM in SODIUM CHL 0.9% 50 ML IV SCH ×3 (05:42→15:51)
[2022-12-15] MEDS: POTASSIUM CHL 20MEQ/100ML 100 ML IV SCH ×2 (08:16→10:17)
[2022-12-15] MEDS: fentaNYL Drip 2500mCg/250mlNS 250 ML IV SCH (08:18)
[2022-12-15] MEDS ORDERED: cefTRIAXone 1GM/50ML D5W 50 ML IV SCH (09:00)
[2022-12-15] MEDS: ASPirin 300 MG RECTAL SUPP PR SCH (10:00)
[2022-12-15] MEDS: PANTOPRAZOLE 40 MG/10 ML VIAL INJ IV SCH (10:15)
[2022-12-15] MEDS: ENOXAPARIN SOD 40 MG/0.4 ML SYRINGE SC SCH (10:16)
[2022-12-15] MEDS ORDERED: metroNIDAZOLE 500MG/100ML 100 ML IV ONE (16:00)
[2022-12-15] MEDS ORDERED: IOHEXOL 350 MG/ML 100ML IJ ONE (16:07)
[2022-12-15] MEDS: ATORVASTATIN 20 MG TAB PO SCH (21:30)
[2022-12-15] MEDS: metroNIDAZOLE 500MG/100ML 100 ML IV SCH (21:30)
[2022-12-16] VITALS (91 sets, daily range): BP systolic 95–156; BP diastolic 43–71
[2022-12-16] MEDS: SODIUM CHLORIDE 0.9% 1,000 ML IV SCH ×4 (02:50→23:20)
[2022-12-16] MEDS: MIDAZOLAM DRIP 50 mg/50mL 50 ML IV SCH ×5 (02:51→22:30)
[2022-12-16 04:43] LABS: Basophils # (auto) 0 10 ^3/uL (0-0.2); Basophils % (auto) 0.5 % (0.0-2.0); Eosinophils # (auto) 0.3 10 ^3/uL (0-0.8); Eosinophils % (auto) 4.8 % (0.0-7.0); Hematocrit 31.5 % (36.0-46.0); Hemoglobin 10.5 g/dL (12.2-16.2); Lymphocytes # (auto) 1.5 10 ^3/uL (0.4-5.4); Lymphocytes % (auto) 28.9 % (10.0-50.0); Mean Corpuscular Hemoglobin 30.5 pg (28.0-32.0); Mean Corpuscular Hgb Conc. 33.5 g/dL (32.0-36.0); Mean Corpuscular Volume 91.1 fL (80.0-100.0); Monocytes # (auto) 0.6 10 ^3/uL (0-1.3); Monocytes % (auto) 10.4 % (0.0-12.0); Neutrophils # (auto) 2.9 10 ^3/uL (1.6-8.6); Neutrophils % (auto) 55.4 % (37.0-80.0); Nucleated Red Blood Cells % 0.2 %; Red Blood Cells 3.45 10^6/uL (4.0-5.20); Red Cell Distribution Width 14.4 % (11.8-14.3); White Blood Cell 5.3 10^3/uL (4.4-10.8)
[2022-12-16 04:52] LABS: Albumin 2.4 g/dL (3.4-5.0); Calcium 7.6 mg/dL (8.5-10.1); Potassium 3.5 mmol/L (3.5-5.1)
[2022-12-16 04:55] LABS: Bilirubin, Total 0.5 mg/dL (0.2-1.0); Total Protein 5.8 g/dL (6.4-8.2)
[2022-12-16] MEDS: metroNIDAZOLE 500MG/100ML 100 ML IV SCH ×3 (05:15→22:19)
[2022-12-16] MEDS: PROPOFOL 100 ML IV SCH (05:26)
[2022-12-16] MEDS: CEFEPIME 2 GM in SODIUM CHL 0.9% 50 ML IV SCH ×3 (06:08→23:36)
[2022-12-16] MEDS: ASPirin 300 MG RECTAL SUPP PR SCH (10:00)
[2022-12-16] MEDS: PANTOPRAZOLE 40 MG/10 ML VIAL INJ IV SCH (10:01)
[2022-12-16] MEDS: ENOXAPARIN SOD 40 MG/0.4 ML SYRINGE SC SCH (10:01)
[2022-12-16] MEDS: fentaNYL Drip 2500mCg/250mlNS 250 ML IV SCH (18:30)
[2022-12-16] MEDS: ATORVASTATIN 20 MG TAB PO SCH (22:19)
[2022-12-17] VITALS (104 sets, daily range): BP systolic 97–144; BP diastolic 39–83
[2022-12-17] MEDS: MIDAZOLAM DRIP 50 mg/50mL 50 ML IV SCH ×5 (02:06→23:30)
[2022-12-17 05:06] LABS: Basophils # (auto) 0 10 ^3/uL (0-0.2); Basophils % (auto) 0.4 % (0.0-2.0); Eosinophils # (auto) 0.2 10 ^3/uL (0-0.8); Eosinophils % (auto) 2.4 % (0.0-7.0); Hematocrit 32.3 % (36.0-46.0); Hemoglobin 10.8 g/dL (12.2-16.2); Lymphocytes # (auto) 1.2 10 ^3/uL (0.4-5.4); Lymphocytes % (auto) 16.9 % (10.0-50.0); Mean Corpuscular Hemoglobin 30.2 pg (28.0-32.0); Mean Corpuscular Hgb Conc. 33.3 g/dL (32.0-36.0); Mean Corpuscular Volume 90.7 fL (80.0-100.0); Monocytes # (auto) 0.7 10 ^3/uL (0-1.3); Monocytes % (auto) 10.5 % (0.0-12.0); Neutrophils # (auto) 4.9 10 ^3/uL (1.6-8.6); Neutrophils % (auto) 69.8 % (37.0-80.0); Red Blood Cells 3.56 10^6/uL (4.0-5.20); Red Cell Distribution Width 13.9 % (11.8-14.3); White Blood Cell 7.1 10^3/uL (4.4-10.8)
[2022-12-17] MEDS: metroNIDAZOLE 500MG/100ML 100 ML IV SCH ×3 (05:19→22:29)
[2022-12-17 05:20] LABS: BUN/Creatinine Ratio 20.9 (10.0-20.0); Calcium 7.9 mg/dL (8.5-10.1)
[2022-12-17] MEDS: SODIUM CHLORIDE 0.9% 1,000 ML IV SCH (05:45)
[2022-12-17] MEDS: CEFEPIME 2 GM in SODIUM CHL 0.9% 50 ML IV SCH ×3 (06:27→22:34)
[2022-12-17] MEDS ORDERED: POTASSIUM CHL 20MEQ/100ML 100 ML IV ONE (06:30)
[2022-12-17] MEDS: PANTOPRAZOLE 40 MG/10 ML VIAL INJ IV SCH (10:00)
[2022-12-17] MEDS: ENOXAPARIN SOD 40 MG/0.4 ML SYRINGE SC SCH (10:01)
[2022-12-17] MEDS: POTASSIUM CHL 20MEQ/100ML 100 ML IV SCH ×2 (11:17→11:35)
[2022-12-17] MEDS: Jevity 1.2 Cal/Fiber 1 Liter GT SCH (15:56)
[2022-12-17] MEDS: PROPOFOL 100 ML IV SCH (17:45)
[2022-12-17] MEDS: fentaNYL Drip 2500mCg/250mlNS 250 ML IV SCH (18:30)
[2022-12-17] MEDS: ATORVASTATIN 20 MG TAB PO SCH (22:29)
[2022-12-18] VITALS (92 sets, daily range): BP systolic 91–165; BP diastolic 49–90
[2022-12-18] MEDS: MIDAZOLAM DRIP 50 mg/50mL 50 ML IV SCH ×3 (04:30→14:30)
[2022-12-18 04:32] LABS: Basophils # (auto) 0 10 ^3/uL (0-0.2); Basophils % (auto) 0.3 % (0.0-2.0); Eosinophils # (auto) 0.1 10 ^3/uL (0-0.8); Eosinophils % (auto) 2.4 % (0.0-7.0); Hematocrit 32.2 % (36.0-46.0); Lymphocytes % (auto) 17.2 % (10.0-50.0); Mean Corpuscular Hemoglobin 30.6 pg (28.0-32.0); Mean Corpuscular Hgb Conc. 34.1 g/dL (32.0-36.0); Mean Corpuscular Volume 89.8 fL (80.0-100.0); Monocytes # (auto) 0.7 10 ^3/uL (0-1.3); Monocytes % (auto) 11.7 % (0.0-12.0); Neutrophils # (auto) 3.9 10 ^3/uL (1.6-8.6); Neutrophils % (auto) 68.4 % (37.0-80.0); Nucleated Red Blood Cells % 0.1 %; Red Blood Cells 3.59 10^6/uL (4.0-5.20); Red Cell Distribution Width 14.1 % (11.8-14.3); White Blood Cell 5.7 10^3/uL (4.4-10.8)
[2022-12-18 04:47] LABS: BUN/Creatinine Ratio 18.6 (10.0-20.0); Calcium 8.3 mg/dL (8.5-10.1); Potassium 3.6 mmol/L (3.5-5.1)
[2022-12-18] MEDS: metroNIDAZOLE 500MG/100ML 100 ML IV SCH ×3 (06:16→21:09)
[2022-12-18] MEDS: CEFEPIME 2 GM in SODIUM CHL 0.9% 50 ML IV SCH ×3 (06:16→22:15)
[2022-12-18] MEDS: PANTOPRAZOLE 40 MG/10 ML VIAL INJ IV SCH (09:59)
[2022-12-18] MEDS: ENOXAPARIN SOD 40 MG/0.4 ML SYRINGE SC SCH (10:00)
[2022-12-18] MEDS ORDERED: MORPHINE SULFATE INJ 2 MG/ml SYRG IV PRN (10:30)
[2022-12-18] MEDS: HYDROmorphone HCL 2 MG/ML VL/or syr IV PRN (10:51)
[2022-12-18] MEDS ORDERED: LORazepam 0.5 MG TAB PO PRN (12:00)
[2022-12-18] MEDS: GABAPENTIN 300 MG CAP PO SCH ×2 (13:39→21:10)
[2022-12-18] MEDS: PROPOFOL 100 ML IV SCH (17:45)
[2022-12-18] MEDS: fentaNYL Drip 2500mCg/250mlNS 250 ML IV SCH (18:30)
[2022-12-18] MEDS ORDERED: FUROSEMIDE 20 MG/2 ML VIAL IV ONE (18:45)
[2022-12-18] MEDS: ATORVASTATIN 20 MG TAB PO SCH (21:09)
[2022-12-18] MEDS: traZODone HCL 50 MG TAB PO SCH (21:10)
[2022-12-19] VITALS (104 sets, daily range): BP systolic 87–142; BP diastolic 47–83
[2022-12-19 04:21] LABS: Basophils # (auto) 0 10 ^3/uL (0-0.2); Basophils % (auto) 0.3 % (0.0-2.0); Eosinophils # (auto) 0.2 10 ^3/uL (0-0.8); Eosinophils % (auto) 2.9 % (0.0-7.0); Hematocrit 33.1 % (36.0-46.0); Lymphocytes % (auto) 16.2 % (10.0-50.0); Mean Corpuscular Hemoglobin 30.6 pg (28.0-32.0); Mean Corpuscular Hgb Conc. 33.4 g/dL (32.0-36.0); Mean Corpuscular Volume 91.7 fL (80.0-100.0); Monocytes # (auto) 0.6 10 ^3/uL (0-1.3); Neutrophils # (auto) 4.5 10 ^3/uL (1.6-8.6); Neutrophils % (auto) 70.6 % (37.0-80.0); Red Blood Cells 3.61 10^6/uL (4.0-5.20); Red Cell Distribution Width 13.9 % (11.8-14.3); White Blood Cell 6.4 10^3/uL (4.4-10.8)
[2022-12-19 04:46] LABS: Albumin 2.3 g/dL (3.4-5.0); Calcium 8.6 mg/dL (8.5-10.1)
[2022-12-19 04:49] LABS: BUN/Creatinine Ratio 20.5 (10.0-20.0)
[2022-12-19 04:51] LABS: Bilirubin, Total 0.5 mg/dL (0.2-1.0); Total Protein 6.5 g/dL (6.4-8.2)
[2022-12-19] MEDS: MIDAZOLAM DRIP 50 mg/50mL 50 ML IV SCH ×5 (05:30→20:12)
[2022-12-19] MEDS: metroNIDAZOLE 500MG/100ML 100 ML IV SCH ×3 (05:39→20:57)
[2022-12-19] MEDS: GABAPENTIN 300 MG CAP PO SCH ×3 (05:40→20:57)
[2022-12-19] MEDS: CEFEPIME 2 GM in SODIUM CHL 0.9% 50 ML IV SCH ×3 (06:45→22:00)
[2022-12-19] MEDS ORDERED: PANTOPRAZOLE 40 MG TAB PO SCH (10:00)
[2022-12-19] MEDS: CITALOPRAM HYDROBROMIDE 10 MG PO SCH (10:00)
[2022-12-19] MEDS: ASPirin-EC 81 mg tab PO SCH (10:02)
[2022-12-19] MEDS: ENOXAPARIN SOD 40 MG/0.4 ML SYRINGE SC SCH (10:03)
[2022-12-19] MEDS: POTASSIUM CHL 20MEQ/100ML 100 ML IV SCH ×3 (12:26→16:29)
[2022-12-19] MEDS: PROPOFOL 100 ML IV SCH (17:41)
[2022-12-19] MEDS: fentaNYL Drip 2500mCg/250mlNS 250 ML IV SCH (18:30)
[2022-12-19] MEDS: ATORVASTATIN 20 MG TAB PO SCH (20:57)
[2022-12-19] MEDS: traZODone HCL 50 MG TAB PO SCH (20:57)
[2022-12-20] VITALS (84 sets, daily range): BP systolic 91–156; BP diastolic 50–89
[2022-12-20] MEDS: MIDAZOLAM DRIP 50 mg/50mL 50 ML IV SCH ×5 (01:30→21:30)
[2022-12-20 03:59] LABS: Basophils # (auto) 0 10 ^3/uL (0-0.2); Basophils % (auto) 0.7 % (0.0-2.0); Eosinophils # (auto) 0.3 10 ^3/uL (0-0.8); Eosinophils % (auto) 6.7 % (0.0-7.0); Hematocrit 32.5 % (36.0-46.0); Hemoglobin 10.8 g/dL (12.2-16.2); Lymphocytes # (auto) 1.2 10 ^3/uL (0.4-5.4); Lymphocytes % (auto) 29.5 % (10.0-50.0); Mean Corpuscular Hemoglobin 30.6 pg (28.0-32.0); Mean Corpuscular Volume 92.7 fL (80.0-100.0); Monocytes # (auto) 0.6 10 ^3/uL (0-1.3); Monocytes % (auto) 15.1 % (0.0-12.0); Nucleated Red Blood Cells % 0.1 %; Red Blood Cells 3.51 10^6/uL (4.0-5.20); Red Cell Distribution Width 14.1 % (11.8-14.3); White Blood Cell 4.2 10^3/uL (4.4-10.8)
[2022-12-20 04:10] LABS: Potassium 3.8 mmol/L (3.5-5.1)
[2022-12-20 04:13] LABS: BUN/Creatinine Ratio 29.3 (10.0-20.0)
[2022-12-20] MEDS: metroNIDAZOLE 500MG/100ML 100 ML IV SCH ×3 (05:33→21:57)
[2022-12-20] MEDS: CEFEPIME 2 GM in SODIUM CHL 0.9% 50 ML IV SCH ×3 (05:33→21:57)
[2022-12-20] MEDS: GABAPENTIN 300 MG CAP PO SCH ×3 (05:33→21:56)
[2022-12-20] MEDS: ASPirin-EC 81 mg tab PO SCH (10:00)
[2022-12-20] MEDS: PANTOPRAZOLE 40 MG/10 ML VIAL INJ IV SCH (10:00)
[2022-12-20] MEDS: ENOXAPARIN SOD 40 MG/0.4 ML SYRINGE SC SCH (10:00)
[2022-12-20] MEDS: CITALOPRAM HYDROBROMIDE 10 MG PO SCH (10:00)
[2022-12-20] MEDS: PROPOFOL 100 ML IV SCH (17:45)
[2022-12-20] MEDS: fentaNYL Drip 2500mCg/250mlNS 250 ML IV SCH (18:28)
[2022-12-20] MEDS: ATORVASTATIN 20 MG TAB PO SCH (21:56)
[2022-12-20] MEDS: traZODone HCL 50 MG TAB PO SCH (21:56)
[2022-12-21] VITALS (78 sets, daily range): BP systolic 96–160; BP diastolic 46–93
[2022-12-21] MEDS: MIDAZOLAM DRIP 50 mg/50mL 50 ML IV SCH ×5 (02:30→22:30)
[2022-12-21 04:29] LABS: Basophils # (auto) 0 10 ^3/uL (0-0.2); Basophils % (auto) 0.7 % (0.0-2.0); Eosinophils # (auto) 0.2 10 ^3/uL (0-0.8); Eosinophils % (auto) 3.6 % (0.0-7.0); Hematocrit 33.3 % (36.0-46.0); Hemoglobin 11.5 g/dL (12.2-16.2); Lymphocytes # (auto) 1.9 10 ^3/uL (0.4-5.4); Lymphocytes % (auto) 32.1 % (10.0-50.0); Mean Corpuscular Hemoglobin 31.1 pg (28.0-32.0); Mean Corpuscular Hgb Conc. 34.4 g/dL (32.0-36.0); Mean Corpuscular Volume 90.4 fL (80.0-100.0); Monocytes # (auto) 0.8 10 ^3/uL (0-1.3); Monocytes % (auto) 12.8 % (0.0-12.0); Neutrophils # (auto) 3.1 10 ^3/uL (1.6-8.6); Neutrophils % (auto) 50.8 % (37.0-80.0); Nucleated Red Blood Cells % 0.1 %; Red Blood Cells 3.68 10^6/uL (4.0-5.20); Red Cell Distribution Width 14.3 % (11.8-14.3); White Blood Cell 6.1 10^3/uL (4.4-10.8)
[2022-12-21 04:44] LABS: BUN/Creatinine Ratio 29.3 (10.0-20.0); Potassium 3.8 mmol/L (3.5-5.1)
[2022-12-21] MEDS: GABAPENTIN 300 MG CAP PO SCH ×3 (05:13→21:32)
[2022-12-21] MEDS: CEFEPIME 2 GM in SODIUM CHL 0.9% 50 ML IV SCH ×3 (05:13→21:33)
[2022-12-21] MEDS: metroNIDAZOLE 500MG/100ML 100 ML IV SCH ×3 (05:13→21:33)
[2022-12-21] MEDS: CITALOPRAM HYDROBROMIDE 10 MG PO SCH (09:46)
[2022-12-21] MEDS: PANTOPRAZOLE 40 MG/10 ML VIAL INJ IV SCH (09:52)
[2022-12-21] MEDS: ASPirin-EC 81 mg tab PO SCH (09:52)
[2022-12-21] MEDS: ENOXAPARIN SOD 40 MG/0.4 ML SYRINGE SC SCH (09:53)
[2022-12-21] MEDS: HYDROmorphone HCL 2 MG/ML VL/or syr IV PRN (16:33)
[2022-12-21] MEDS: fentaNYL Drip 2500mCg/250mlNS 250 ML IV SCH (19:30)
[2022-12-21] MEDS: ATORVASTATIN 20 MG TAB PO SCH (21:32)
[2022-12-21] MEDS: ACETAMINOPHEN 325 MG TAB PO PRN (21:32)
[2022-12-21] MEDS: traZODone HCL 50 MG TAB PO SCH (21:32)
[2022-12-22] VITALS (64 sets, daily range): BP systolic 84–132; BP diastolic 41–74
[2022-12-22] MEDS: LORazepam 2MG/ML-1ML VIAL IV PRN ×3 (00:21→23:44)
[2022-12-22] MEDS: MIDAZOLAM DRIP 50 mg/50mL 50 ML IV SCH ×5 (03:10→23:30)
[2022-12-22 04:24] LABS: Basophils # (auto) 0 10 ^3/uL (0-0.2); Basophils % (auto) 0.9 % (0.0-2.0); Eosinophils # (auto) 0.3 10 ^3/uL (0-0.8); Eosinophils % (auto) 6.7 % (0.0-7.0); Hematocrit 29.5 % (36.0-46.0); Hemoglobin 9.8 g/dL (12.2-16.2); Lymphocytes # (auto) 1.8 10 ^3/uL (0.4-5.4); Mean Corpuscular Hgb Conc. 33.3 g/dL (32.0-36.0); Mean Corpuscular Volume 90.2 fL (80.0-100.0); Monocytes # (auto) 0.6 10 ^3/uL (0-1.3); Monocytes % (auto) 13.8 % (0.0-12.0); Neutrophils # (auto) 1.5 10 ^3/uL (1.6-8.6); Neutrophils % (auto) 36.6 % (37.0-80.0); Nucleated Red Blood Cells % 0.2 %; Red Blood Cells 3.27 10^6/uL (4.0-5.20); White Blood Cell 4.2 10^3/uL (4.4-10.8)
[2022-12-22 04:39] LABS: BUN/Creatinine Ratio 45.9 (10.0-20.0); Calcium 8.9 mg/dL (8.5-10.1); Potassium 3.5 mmol/L (3.5-5.1)
[2022-12-22] MEDS: GABAPENTIN 300 MG CAP PO SCH ×3 (05:06→22:01)
[2022-12-22] MEDS: metroNIDAZOLE 500MG/100ML 100 ML IV SCH ×3 (05:06→21:57)
[2022-12-22] MEDS: CEFEPIME 2 GM in SODIUM CHL 0.9% 50 ML IV SCH ×3 (05:06→23:12)
[2022-12-22] MEDS: PANTOPRAZOLE 40 MG/10 ML VIAL INJ IV SCH (08:57)
[2022-12-22] MEDS: HYDROmorphone HCL 2 MG/ML VL/or syr IV PRN ×2 (08:58→15:12)
[2022-12-22] MEDS: ASPirin-EC 81 mg tab PO SCH (08:59)
[2022-12-22] MEDS: ACETAMINOPHEN 325 MG TAB PO PRN (08:59)
[2022-12-22] MEDS: CITALOPRAM HYDROBROMIDE 10 MG PO SCH (09:00)
[2022-12-22] MEDS: ENOXAPARIN SOD 40 MG/0.4 ML SYRINGE SC SCH (09:00)
[2022-12-22] MEDS ORDERED: ALBUTEROL SULF 2.5 MG/0.5ML(0.5%) NEB SOLN NEB PRN (15:00)
[2022-12-22] MEDS: Jevity 1.2 Cal/Fiber 1 Liter GT SCH (17:07)
[2022-12-22] MEDS: ALBUTEROL SULF 2.5 MG/0.5ML(0.5%) NEB SOLN NEB SCH ×2 (18:26→22:18)
[2022-12-22] MEDS: IPRATROPIUM BROM 0.5 MG/2.5ML INH SOL NEB SCH ×2 (18:26→22:18)
[2022-12-22] MEDS: fentaNYL Drip 2500mCg/250mlNS 250 ML IV SCH (18:30)
[2022-12-22] MEDS: ATORVASTATIN 20 MG TAB PO SCH (22:01)
[2022-12-22] MEDS: traZODone HCL 50 MG TAB PO SCH (22:01)
[2022-12-23] VITALS (81 sets, daily range): BP systolic 80–144; BP diastolic 28–72
[2022-12-23] MEDS: ALBUTEROL SULF 2.5 MG/0.5ML(0.5%) NEB SOLN NEB SCH ×6 (02:56→22:04)
[2022-12-23] MEDS: IPRATROPIUM BROM 0.5 MG/2.5ML INH SOL NEB SCH ×6 (02:56→22:04)
[2022-12-23 04:25] LABS: Basophils # (auto) 0 10 ^3/uL (0-0.2); Eosinophils # (auto) 0.3 10 ^3/uL (0-0.8); Hematocrit 30.2 % (36.0-46.0); Hemoglobin 9.8 g/dL (12.2-16.2); Lymphocytes # (auto) 2.2 10 ^3/uL (0.4-5.4); Lymphocytes % (auto) 46.3 % (10.0-50.0); Mean Corpuscular Hemoglobin 30.2 pg (28.0-32.0); Mean Corpuscular Hgb Conc. 32.5 g/dL (32.0-36.0); Mean Corpuscular Volume 92.9 fL (80.0-100.0); Monocytes # (auto) 0.7 10 ^3/uL (0-1.3); Monocytes % (auto) 15.8 % (0.0-12.0); Neutrophils # (auto) 1.5 10 ^3/uL (1.6-8.6); Neutrophils % (auto) 30.9 % (37.0-80.0); Nucleated Red Blood Cells % 0.1 %; Red Blood Cells 3.25 10^6/uL (4.0-5.20); Red Cell Distribution Width 13.9 % (11.8-14.3); White Blood Cell 4.7 10^3/uL (4.4-10.8)
[2022-12-23] MEDS: MIDAZOLAM DRIP 50 mg/50mL 50 ML IV SCH ×4 (04:30→19:30)
[2022-12-23 04:40] LABS: BUN/Creatinine Ratio 42.2 (10.0-20.0); Calcium 9.1 mg/dL (8.5-10.1); Potassium 3.6 mmol/L (3.5-5.1)
[2022-12-23] MEDS: metroNIDAZOLE 500MG/100ML 100 ML IV SCH ×3 (06:00→21:09)
[2022-12-23] MEDS: GABAPENTIN 300 MG CAP PO SCH ×3 (06:57→21:09)
[2022-12-23] MEDS: CEFEPIME 2 GM in SODIUM CHL 0.9% 50 ML IV SCH ×3 (07:06→21:10)
[2022-12-23] MEDS: ENOXAPARIN SOD 40 MG/0.4 ML SYRINGE SC SCH (08:28)
[2022-12-23] MEDS: PANTOPRAZOLE 40 MG/10 ML VIAL INJ IV SCH (08:28)
[2022-12-23] MEDS: ASPirin-EC 81 mg tab PO SCH (08:28)
[2022-12-23] MEDS: HYDROmorphone HCL 2 MG/ML VL/or syr IV PRN (08:29)
[2022-12-23] MEDS: CITALOPRAM HYDROBR 20 MG TAB PO SCH (10:22)
[2022-12-23] MEDS ORDERED: EPINEPHrine HCL 0.5 ML NEB NEB ONE (10:30)
[2022-12-23] MEDS: LORazepam 2MG/ML-1ML VIAL IV PRN (11:25)
[2022-12-23] MEDS: ACETAMINOPHEN 325 MG TAB PO PRN (14:38)
[2022-12-23] MEDS ORDERED: HYDROcodone-ACET 5/325MG TAB PO PRN (17:15)
[2022-12-23] MEDS: HYDROcodone-ACET 5/325MG TAB PO PRN (17:40)
[2022-12-23] MEDS: fentaNYL Drip 2500mCg/250mlNS 250 ML IV SCH (19:00)
[2022-12-23] MEDS ORDERED: LORazepam 2MG/ML-1ML VIAL IV PRN (20:15)
[2022-12-23] MEDS: ATORVASTATIN 20 MG TAB PO SCH (21:09)
[2022-12-23] MEDS: ZOLPIDEM TARTRATE 5 MG TAB PO PRN (21:09)
[2022-12-23] MEDS: traZODone HCL 50 MG TAB PO SCH (22:00)
[2022-12-24] VITALS (22 sets, daily range): BP systolic 95–143; BP diastolic 40–83
[2022-12-24] MEDS: MIDAZOLAM DRIP 50 mg/50mL 50 ML IV SCH ×4 (00:30→15:30)
[2022-12-24] MEDS: ALBUTEROL SULF 2.5 MG/0.5ML(0.5%) NEB SOLN NEB SCH ×6 (02:36→22:28)
[2022-12-24] MEDS: IPRATROPIUM BROM 0.5 MG/2.5ML INH SOL NEB SCH ×6 (02:36→22:28)
[2022-12-24 04:32] LABS: Basophils # (auto) 0 10 ^3/uL (0-0.2); Basophils % (auto) 0.9 % (0.0-2.0); Eosinophils # (auto) 0.3 10 ^3/uL (0-0.8); Eosinophils % (auto) 6.8 % (0.0-7.0); Hematocrit 28.9 % (36.0-46.0); Hemoglobin 9.6 g/dL (12.2-16.2); Lymphocytes # (auto) 1.3 10 ^3/uL (0.4-5.4); Lymphocytes % (auto) 31.1 % (10.0-50.0); Mean Corpuscular Hemoglobin 30.6 pg (28.0-32.0); Mean Corpuscular Hgb Conc. 33.1 g/dL (32.0-36.0); Mean Corpuscular Volume 92.4 fL (80.0-100.0); Monocytes # (auto) 0.5 10 ^3/uL (0-1.3); Monocytes % (auto) 12.8 % (0.0-12.0); Neutrophils # (auto) 1.9 10 ^3/uL (1.6-8.6); Neutrophils % (auto) 48.4 % (37.0-80.0); Nucleated Red Blood Cells % 0.1 %; Red Blood Cells 3.13 10^6/uL (4.0-5.20)
[2022-12-24 04:48] LABS: BUN/Creatinine Ratio 34.3 (10.0-20.0); Calcium 8.7 mg/dL (8.5-10.1); Potassium 3.7 mmol/L (3.5-5.1)
[2022-12-24] MEDS: HYDROcodone-ACET 5/325MG TAB PO PRN (05:05)
[2022-12-24] MEDS: GABAPENTIN 300 MG CAP PO SCH ×3 (05:05→22:00)
[2022-12-24] MEDS: CEFEPIME 2 GM in SODIUM CHL 0.9% 50 ML IV SCH ×3 (05:06→22:00)
[2022-12-24] MEDS: metroNIDAZOLE 500MG/100ML 100 ML IV SCH ×3 (05:06→22:00)
[2022-12-24] MEDS: ONDANSETRON HCL 4 MG/2 ML VIAL IV PRN (07:57)
[2022-12-24] MEDS: CITALOPRAM HYDROBR 20 MG TAB PO SCH (09:16)
[2022-12-24] MEDS: ASPirin-EC 81 mg tab PO SCH (09:16)
[2022-12-24] MEDS: ENOXAPARIN SOD 40 MG/0.4 ML SYRINGE SC SCH (09:17)
[2022-12-24] MEDS: PANTOPRAZOLE 40 MG/10 ML VIAL INJ IV SCH (09:17)
[2022-12-24] MEDS: DOCUSATE SOD 100 MG CAP PO PRN ×2 (13:34→22:17)
[2022-12-24] MEDS: LORazepam 2MG/ML-1ML VIAL IV PRN (13:55)
[2022-12-24] MEDS: ZOLPIDEM TARTRATE 5 MG TAB PO PRN (18:51)
[2022-12-24] MEDS: traZODone HCL 50 MG TAB PO SCH (22:00)
[2022-12-24] MEDS: ATORVASTATIN 20 MG TAB PO SCH (23:20)
[2022-12-25] VITALS (25 sets, daily range): BP systolic 68–142; BP diastolic 33–69
[2022-12-25] MEDS: IPRATROPIUM BROM 0.5 MG/2.5ML INH SOL NEB SCH ×6 (00:26→22:17)
[2022-12-25] MEDS: ALBUTEROL SULF 2.5 MG/0.5ML(0.5%) NEB SOLN NEB SCH ×6 (00:27→22:17)
[2022-12-25] MEDS: MIDAZOLAM DRIP 50 mg/50mL 50 ML IV SCH ×2 (01:30→07:34)
[2022-12-25 04:03] LABS: Basophils # (auto) 0 10 ^3/uL (0-0.2); Basophils % (auto) 1.1 % (0.0-2.0); Eosinophils # (auto) 0.2 10 ^3/uL (0-0.8); Eosinophils % (auto) 5.6 % (0.0-7.0); Hematocrit 29.3 % (36.0-46.0); Hemoglobin 9.6 g/dL (12.2-16.2); Lymphocytes # (auto) 1.3 10 ^3/uL (0.4-5.4); Lymphocytes % (auto) 35.1 % (10.0-50.0); Mean Corpuscular Hemoglobin 30.8 pg (28.0-32.0); Mean Corpuscular Hgb Conc. 32.8 g/dL (32.0-36.0); Monocytes # (auto) 0.6 10 ^3/uL (0-1.3); Monocytes % (auto) 16.6 % (0.0-12.0); Neutrophils # (auto) 1.5 10 ^3/uL (1.6-8.6); Neutrophils % (auto) 41.6 % (37.0-80.0); Nucleated Red Blood Cells % 0.1 %; Red Blood Cells 3.12 10^6/uL (4.0-5.20); Red Cell Distribution Width 13.9 % (11.8-14.3); White Blood Cell 3.7 10^3/uL (4.4-10.8)
[2022-12-25 04:06] LABS: BUN/Creatinine Ratio 33.3 (10.0-20.0); Calcium 8.8 mg/dL (8.5-10.1)
[2022-12-25] MEDS: metroNIDAZOLE 500MG/100ML 100 ML IV SCH ×3 (05:32→21:06)
[2022-12-25] MEDS: CEFEPIME 2 GM in SODIUM CHL 0.9% 50 ML IV SCH ×3 (05:32→21:06)
[2022-12-25] MEDS: GABAPENTIN 300 MG CAP PO SCH ×3 (05:33→21:05)
[2022-12-25] MEDS: ACETAMINOPHEN 325 MG TAB PO PRN ×2 (11:06→21:06)
[2022-12-25] MEDS: ASPirin-EC 81 mg tab PO SCH (11:06)
[2022-12-25] MEDS: CITALOPRAM HYDROBR 20 MG TAB PO SCH (11:06)
[2022-12-25] MEDS: ENOXAPARIN SOD 40 MG/0.4 ML SYRINGE SC SCH (11:06)
[2022-12-25] MEDS: PANTOPRAZOLE 40 MG/10 ML VIAL INJ IV SCH (11:07)
[2022-12-25] MEDS ORDERED: MIDODRINE HCL 10 MG TAB PO ONE (15:45)
[2022-12-25] MEDS ORDERED: LACTULOSE 20Gm/30ML SOLN PO ONE (17:30)
[2022-12-25] MEDS ORDERED: SODIUM CHLORIDE 0.9% 500 ML IV ONE (17:30)
[2022-12-25] MEDS: NOREPINEPHRINE 8 MG/250ML KIT 250 ML IV SCH (17:30)
[2022-12-25] MEDS: MIDODRINE HCL 10 MG TAB PO SCH (17:52)
[2022-12-25] MEDS ORDERED: MIDODRINE HCL 10 MG TAB PO SCH (18:00)
[2022-12-25] MEDS: ATORVASTATIN 20 MG TAB PO SCH (21:05)
[2022-12-25] MEDS: ZOLPIDEM TARTRATE 5 MG TAB PO PRN (21:06)
[2022-12-25] MEDS: traZODone HCL 50 MG TAB PO SCH (22:00)
[2022-12-26] VITALS (22 sets, daily range): BP systolic 100–175; BP diastolic 44–85
[2022-12-26] MEDS: HYDROcodone-ACET 5/325MG TAB PO PRN (01:22)
[2022-12-26] MEDS: IPRATROPIUM BROM 0.5 MG/2.5ML INH SOL NEB SCH ×6 (01:50→22:19)
[2022-12-26] MEDS: ALBUTEROL SULF 2.5 MG/0.5ML(0.5%) NEB SOLN NEB SCH ×6 (01:50→22:19)
[2022-12-26 04:04] LABS: Basophils # (auto) 0 10 ^3/uL (0-0.2); Basophils % (auto) 0.9 % (0.0-2.0); Eosinophils # (auto) 0.2 10 ^3/uL (0-0.8); Eosinophils % (auto) 5.7 % (0.0-7.0); Hematocrit 28.6 % (36.0-46.0); Hemoglobin 9.6 g/dL (12.2-16.2); Lymphocytes # (auto) 1.7 10 ^3/uL (0.4-5.4); Lymphocytes % (auto) 41.5 % (10.0-50.0); Mean Corpuscular Hemoglobin 31.1 pg (28.0-32.0); Mean Corpuscular Hgb Conc. 33.8 g/dL (32.0-36.0); Mean Corpuscular Volume 92.1 fL (80.0-100.0); Monocytes # (auto) 0.7 10 ^3/uL (0-1.3); Monocytes % (auto) 16.5 % (0.0-12.0); Neutrophils # (auto) 1.4 10 ^3/uL (1.6-8.6); Neutrophils % (auto) 35.4 % (37.0-80.0); Nucleated Red Blood Cells % 0.2 %; White Blood Cell 4.1 10^3/uL (4.4-10.8)
[2022-12-26 04:19] LABS: BUN/Creatinine Ratio 36.2 (10.0-20.0); Calcium 8.3 mg/dL (8.5-10.1); Potassium 3.9 mmol/L (3.5-5.1)
[2022-12-26] MEDS: metroNIDAZOLE 500MG/100ML 100 ML IV SCH ×3 (05:28→22:10)
[2022-12-26] MEDS: MIDODRINE HCL 10 MG TAB PO SCH ×3 (05:28→16:56)
[2022-12-26] MEDS: GABAPENTIN 300 MG CAP PO SCH ×3 (05:28→22:10)
[2022-12-26] MEDS: ASPirin-EC 81 mg tab PO SCH (09:00)
[2022-12-26] MEDS: CITALOPRAM HYDROBR 20 MG TAB PO SCH (09:01)
[2022-12-26] MEDS: ENOXAPARIN SOD 40 MG/0.4 ML SYRINGE SC SCH (09:01)
[2022-12-26] MEDS: PANTOPRAZOLE 40 MG/10 ML VIAL INJ IV SCH (09:01)
[2022-12-26] MEDS ORDERED: POLYETHYLENE GLYCOL 17 GM PWDR PO PRN (10:00)
[2022-12-26] MEDS: NOREPINEPHRINE 8 MG/250ML KIT 250 ML IV SCH (11:10)
[2022-12-26] MEDS: ZOLPIDEM TARTRATE 5 MG TAB PO PRN (20:29)
[2022-12-26] MEDS: ATORVASTATIN 20 MG TAB PO SCH (22:09)
[2022-12-26] MEDS: traZODone HCL 50 MG TAB PO SCH (22:10)
[2022-12-27] VITALS (25 sets, daily range): BP systolic 84–153; BP diastolic 30–74
[2022-12-27] MEDS: ALBUTEROL SULF 2.5 MG/0.5ML(0.5%) NEB SOLN NEB SCH ×6 (02:27→21:57)
[2022-12-27] MEDS: IPRATROPIUM BROM 0.5 MG/2.5ML INH SOL NEB SCH ×6 (02:27→21:57)
[2022-12-27] MEDS: metroNIDAZOLE 500MG/100ML 100 ML IV SCH (06:03)
[2022-12-27] MEDS: MIDODRINE HCL 10 MG TAB PO SCH ×3 (06:03→18:00)
[2022-12-27] MEDS: GABAPENTIN 300 MG CAP PO SCH ×3 (06:04→22:05)
[2022-12-27] MEDS: CITALOPRAM HYDROBR 20 MG TAB PO SCH (09:06)
[2022-12-27] MEDS: PANTOPRAZOLE 40 MG/10 ML VIAL INJ IV SCH (09:06)
[2022-12-27] MEDS: ASPirin-EC 81 mg tab PO SCH (09:06)
[2022-12-27] MEDS ORDERED: ENOXAPARIN SOD 40 MG/0.4 ML SYRINGE SC ONE (12:15)
[2022-12-27] MEDS: ACETAMINOPHEN 325 MG TAB PO PRN (13:07)
[2022-12-27] MEDS: HYDROcodone-ACET 5/325MG TAB PO PRN (13:59)
[2022-12-27] MEDS: ATORVASTATIN 20 MG TAB PO SCH (22:04)
[2022-12-27] MEDS: traZODone HCL 50 MG TAB PO SCH (22:04)
[2022-12-28] VITALS (16 sets, daily range): BP systolic 90–160; BP diastolic 33–81
[2022-12-28] MEDS: ALBUTEROL SULF 2.5 MG/0.5ML(0.5%) NEB SOLN NEB SCH ×6 (02:00→22:29)
[2022-12-28] MEDS: IPRATROPIUM BROM 0.5 MG/2.5ML INH SOL NEB SCH ×6 (02:00→22:29)
[2022-12-28] MEDS: HYDROcodone-ACET 5/325MG TAB PO PRN (03:22)
[2022-12-28] MEDS: MIDODRINE HCL 10 MG TAB PO SCH ×4 (06:34→17:53)
[2022-12-28] MEDS: GABAPENTIN 300 MG CAP PO SCH ×3 (06:34→22:07)
[2022-12-28] MEDS: ASPirin-EC 81 mg tab PO SCH (09:09)
[2022-12-28] MEDS: ACETAMINOPHEN 325 MG TAB PO PRN ×2 (09:09→19:17)
[2022-12-28] MEDS: CITALOPRAM HYDROBR 20 MG TAB PO SCH (09:09)
[2022-12-28] MEDS: PANTOPRAZOLE 40 MG/10 ML VIAL INJ IV SCH (09:10)
[2022-12-28] MEDS: ENOXAPARIN SOD 40 MG/0.4 ML SYRINGE SC SCH (09:10)
[2022-12-28] MEDS: ATORVASTATIN 20 MG TAB PO SCH (22:07)
[2022-12-28] MEDS: traZODone HCL 50 MG TAB PO SCH (22:07)
[2022-12-29] VITALS (17 sets, daily range): BP systolic 86–147; BP diastolic 24–69
[2022-12-29] MEDS: ALBUTEROL SULF 2.5 MG/0.5ML(0.5%) NEB SOLN NEB SCH ×7 (02:00→22:00)
[2022-12-29] MEDS: IPRATROPIUM BROM 0.5 MG/2.5ML INH SOL NEB SCH ×7 (02:00→22:00)
[2022-12-29] MEDS: HYDROcodone-ACET 5/325MG TAB PO PRN (04:11)
[2022-12-29] MEDS: ONDANSETRON HCL 4 MG/2 ML VIAL IV PRN ×2 (04:12→20:12)
[2022-12-29] MEDS: GABAPENTIN 300 MG CAP PO SCH ×3 (06:10→22:11)
[2022-12-29] MEDS: MIDODRINE HCL 10 MG TAB PO SCH ×3 (06:11→18:00)
[2022-12-29] MEDS: ACETAMINOPHEN 325 MG TAB PO PRN (07:43)
[2022-12-29] MEDS: ENOXAPARIN SOD 40 MG/0.4 ML SYRINGE SC SCH (10:03)
[2022-12-29] MEDS: PANTOPRAZOLE 40 MG/10 ML VIAL INJ IV SCH (10:03)
[2022-12-29] MEDS: ASPirin-EC 81 mg tab PO SCH (10:03)
[2022-12-29] MEDS: CITALOPRAM HYDROBR 20 MG TAB PO SCH (10:04)
[2022-12-29] MEDS: DOCUSATE SOD 100 MG CAP PO PRN (11:58)
[2022-12-29] MEDS: traZODone HCL 50 MG TAB PO SCH (22:10)
[2022-12-29] MEDS: ATORVASTATIN 20 MG TAB PO SCH (22:10)
[2022-12-30] VITALS (25 sets, daily range): BP systolic 90–143; BP diastolic 34–65
[2022-12-30] MEDS: ALBUTEROL SULF 2.5 MG/0.5ML(0.5%) NEB SOLN NEB SCH ×6 (02:00→22:56)
[2022-12-30] MEDS: IPRATROPIUM BROM 0.5 MG/2.5ML INH SOL NEB SCH ×6 (02:00→22:56)
[2022-12-30] MEDS: MIDODRINE HCL 10 MG TAB PO SCH ×3 (06:19→19:43)
[2022-12-30] MEDS: GABAPENTIN 300 MG CAP PO SCH ×3 (06:19→21:39)
[2022-12-30] MEDS: HYDROcodone-ACET 5/325MG TAB PO PRN (06:20)
[2022-12-30] MEDS: PANTOPRAZOLE 40 MG/10 ML VIAL INJ IV SCH (10:35)
[2022-12-30] MEDS: CITALOPRAM HYDROBR 20 MG TAB PO SCH (10:36)
[2022-12-30] MEDS: ASPirin-EC 81 mg tab PO SCH (10:36)
[2022-12-30] MEDS: ENOXAPARIN SOD 40 MG/0.4 ML SYRINGE SC SCH (10:36)
[2022-12-30] MEDS: DOCUSATE SOD 100 MG CAP PO PRN (14:37)
[2022-12-30] MEDS: ZOLPIDEM TARTRATE 5 MG TAB PO PRN (19:49)
[2022-12-30] MEDS: ATORVASTATIN 20 MG TAB PO SCH (21:39)
[2022-12-30] MEDS: traZODone HCL 50 MG TAB PO SCH (22:00)
[2022-12-31] VITALS (18 sets, daily range): BP systolic 101–171; BP diastolic 37–77
[2022-12-31] MEDS: IPRATROPIUM BROM 0.5 MG/2.5ML INH SOL NEB SCH ×6 (02:34→22:09)
[2022-12-31] MEDS: ALBUTEROL SULF 2.5 MG/0.5ML(0.5%) NEB SOLN NEB SCH ×6 (02:34→22:09)
[2022-12-31] MEDS: GABAPENTIN 300 MG CAP PO SCH ×3 (05:54→22:30)
[2022-12-31] MEDS: MIDODRINE HCL 10 MG TAB PO SCH ×3 (05:55→17:49)
[2022-12-31] MEDS: PANTOPRAZOLE 40 MG/10 ML VIAL INJ IV SCH (09:25)
[2022-12-31] MEDS: ASPirin-EC 81 mg tab PO SCH (09:25)
[2022-12-31] MEDS: HYDROcodone-ACET 5/325MG TAB PO PRN ×2 (09:25→19:50)
[2022-12-31] MEDS: CITALOPRAM HYDROBR 20 MG TAB PO SCH (09:25)
[2022-12-31] MEDS: ENOXAPARIN SOD 40 MG/0.4 ML SYRINGE SC SCH (09:27)
[2022-12-31] MEDS: ACETAMINOPHEN 325 MG TAB PO PRN (17:54)
[2022-12-31] MEDS: LIDOCAINE HCL 5 % TOP OINT 35 GM TOP SCH (22:00)
[2022-12-31] MEDS: ATORVASTATIN 20 MG TAB PO SCH (22:00)
[2022-12-31] MEDS ORDERED: cloNIDine HCL 0.1 MG TAB PO PRN (22:15)
[2022-12-31] MEDS: traZODone HCL 50 MG TAB PO SCH (22:29)
[2022-12-31] MEDS: DOCUSATE SOD 100 MG CAP PO PRN (22:32)
[2022-12-31] MEDS: HYDROCORTONE 1% TOPICAL CREAM 30 GM TUBE TOP SCH (23:58)
[2023-01-01] MEDS: IPRATROPIUM BROM 0.5 MG/2.5ML INH SOL NEB SCH ×7 (01:51→22:10)
[2023-01-01] MEDS: ALBUTEROL SULF 2.5 MG/0.5ML(0.5%) NEB SOLN NEB SCH ×7 (01:51→22:10)
[2023-01-01 05:00] VITALS: BP 98/39
[2023-01-01] MEDS: MIDODRINE HCL 10 MG TAB PO SCH ×3 (05:07→17:28)
[2023-01-01] MEDS: GABAPENTIN 300 MG CAP PO SCH ×3 (05:07→21:31)
[2023-01-01 09:00] VITALS: BP_SYST 116; BP_SYST 122; BP_DIAS 49; BP_DIAS 56
[2023-01-01] MEDS: HYDROCORTONE 1% TOPICAL CREAM 30 GM TUBE TOP SCH ×2 (10:00→21:38)
[2023-01-01] MEDS: PANTOPRAZOLE 40 MG/10 ML VIAL INJ IV SCH (11:04)
[2023-01-01] MEDS: CITALOPRAM HYDROBR 20 MG TAB PO SCH (11:04)
[2023-01-01] MEDS: ENOXAPARIN SOD 40 MG/0.4 ML SYRINGE SC SCH (11:05)
[2023-01-01] MEDS: ASPirin-EC 81 mg tab PO SCH (11:05)
[2023-01-01] MEDS: LIDOCAINE HCL 5 % TOP OINT 35 GM TOP SCH ×2 (12:08→21:38)
[2023-01-01 13:00] VITALS: BP 103/45
[2023-01-01 16:50] VITALS: BP 101/68
[2023-01-01] MEDS: HYDROcodone-ACET 5/325MG TAB PO PRN (18:36)
[2023-01-01] MEDS ORDERED: LABETALOL HCL 5 MG/ML 4ML SYRINGE IV PRN (19:30)
[2023-01-01 20:00] VITALS: BP 129/39
[2023-01-01] MEDS: traZODone HCL 50 MG TAB PO SCH (21:30)
[2023-01-01] MEDS: ATORVASTATIN 20 MG TAB PO SCH (21:30)
[2023-01-01] MEDS: METOCLOPRAMIDE HCL 10 MG TAB PO SCH (21:33)
[2023-01-01 22:00] VITALS: BP 129/39
[2023-01-01] MEDS: ZOLPIDEM TARTRATE 5 MG TAB PO PRN (22:56)
[2023-01-02] MEDS: ALBUTEROL SULF 2.5 MG/0.5ML(0.5%) NEB SOLN NEB SCH ×4 (02:00→13:31)
[2023-01-02] MEDS: IPRATROPIUM BROM 0.5 MG/2.5ML INH SOL NEB SCH ×4 (02:00→13:31)
[2023-01-02 04:39] VITALS: BP 129/39
[2023-01-02 05:00] VITALS: BP 105/43
[2023-01-02] MEDS: MIDODRINE HCL 10 MG TAB PO SCH ×2 (06:13→12:00)
[2023-01-02] MEDS: GABAPENTIN 300 MG CAP PO SCH ×2 (06:14→14:27)
[2023-01-02] MEDS: METOCLOPRAMIDE HCL 10 MG TAB PO SCH ×2 (06:15→14:28)
[2023-01-02 08:00] VITALS: BP 109/47
[2023-01-02 08:45] VITALS: BP 109/47
[2023-01-02] MEDS ORDERED: DexAMETHasone SOD PHOS 10MG/1ML VIAL INJ IV SCH (10:00)
[2023-01-02] MEDS: PANTOPRAZOLE 40 MG/10 ML VIAL INJ IV SCH (10:28)
[2023-01-02] MEDS: CITALOPRAM HYDROBR 20 MG TAB PO SCH (10:28)
[2023-01-02] MEDS: ASPirin-EC 81 mg tab PO SCH (10:28)
[2023-01-02] MEDS: ENOXAPARIN SOD 40 MG/0.4 ML SYRINGE SC SCH (10:46)
[2023-01-02] MEDS: LIDOCAINE HCL 5 % TOP OINT 35 GM TOP SCH (10:46)
[2023-01-02] MEDS: HYDROCORTONE 1% TOPICAL CREAM 30 GM TUBE TOP SCH (10:46)
[2023-01-02 13:00] VITALS: BP 120/58
== END 2023-01-02 16:54 | disposition home health service (06) | DRG 207 ==
LOC: ER 07:38 → OVERFLOW 12:58 → ICU WEST 20:47 → TELE-CENTR 12-31 17:24
PROVIDERS: ADMIT Nurse Practitioner Family; ATTEND Internal Medicine Pulmonary Disease
PROC: 5A1955Z Respiratory Ventilation, Greater than 96 Consecutive Hours (ICD-10-PCS; principal; 2022-12-14)
PROC: 0BH17EZ Insertion of Endotracheal Airway into Trachea, Via Natural or Artificial Opening (ICD-10-PCS; 2022-12-14)
PROC: 02HV33Z Insertion of Infusion Device into Superior Vena Cava, Percutaneous Approach (ICD-10-PCS; 2022-12-15)
PROC: B548ZZA Ultrasonography of Superior Vena Cava, Guidance (ICD-10-PCS; 2022-12-15)
DX: J96.01 Acute respiratory failure with hypoxia (principal); G92.8 Other toxic encephalopathy; K57.32 Diverticulitis of large intestine without perforation or abscess without bleeding; N30.01 Acute cystitis with hematuria; G93.1 Anoxic brain damage, not elsewhere classified; J44.1 Chronic obstructive pulmonary disease with (acute) exacerbation; R17 Unspecified jaundice; D64.9 Anemia, unspecified; E78.5 Hyperlipidemia, unspecified; E88.09 Other disorders of plasma-protein metabolism, not elsewhere classified; F41.1 Generalized anxiety disorder; I11.0 Hypertensive heart disease with heart failure; I34.81 Nonrheumatic mitral (valve) annulus calcification; I50.9 Heart failure, unspecified; K21.9 Gastro-esophageal reflux disease without esophagitis; K44.9 Diaphragmatic hernia without obstruction or gangrene; K59.00 Constipation, unspecified; K29.70 Gastritis, unspecified, without bleeding; R47.1 Dysarthria and anarthria; Z91.013 Allergy to seafood; F17.200 Nicotine dependence, unspecified, uncomplicated; R13.10 Dysphagia, unspecified; E66.01 Morbid (severe) obesity due to excess calories; Z20.822 Contact with and (suspected) exposure to COVID-19; Z68.36 Body mass index [BMI] 36.0-36.9, adult; Z88.5 Allergy status to narcotic agent; Z88.8 Allergy status to other drugs, medicaments and biological substances; Z80.0 Family history of malignant neoplasm of digestive organs; Z79.899 Other long term (current) drug therapy; Z80.1 Family history of malignant neoplasm of trachea, bronchus and lung; Z80.3 Family history of malignant neoplasm of breast; Z80.41 Family history of malignant neoplasm of ovary; Z82.0 Family history of epilepsy and other diseases of the nervous system; Z80.8 Family history of malignant neoplasm of other organs or systems; Z81.8 Family history of other mental and behavioral disorders; Z82.3 Family history of stroke; Z82.49 Family history of ischemic heart disease and other diseases of the circulatory system; Z82.5 Family history of asthma and other chronic lower respiratory diseases; Z82.62 Family history of osteoporosis; Z83.3 Family history of diabetes mellitus; Z79.82 Long term (current) use of aspirin; Z86.73 Personal history of transient ischemic attack (TIA), and cerebral infarction without residual deficits; Z90.710 Acquired absence of both cervix and uterus
CPT/HCPCS: 31500; 36415; 36600; 70450; 70496; 70551; 71045; 74018; 74176; 80048; 80053; 80061; 81001; 82533; 82805; 82962; 83605; 83735; 83880; 84132; 84484; 85025; 85610; 87070; 87081; 87086; 87205; 87426; 93005; 93306; 94002; 94003; 94640; 95819; 96361; 96365; 96367; 96375; 97110; 97116; 97163; 97530; C9113; G0378; J0330; J1100; J1885; J1956; J2250; J2405; J2704; J3480; J3490; Q0162

== ENCOUNTER 2023-04-02 08:19 | Inpatient (IN) | payer OTHER ==
[~2023-04-02] VITALS: Ht 160 cm; Wt 85.6 kg
[~2023-04-02 08:19] MED LIST changes: +CITA10TA5 PO; -CITA10TA70 PO; +LORA-1123 PO; -LORA1TAB23 PO; -SUCR1SUS16 PO; +SUCR1SUS25 PO; -VANC125PO PO
[2023-04-02] MEDS ORDERED: ONDANSETRON HCL 4 MG/2 ML VIAL IV ONE (09:00)
[2023-04-02] MEDS ORDERED: HYDROmorphone HCL 2 MG/ML VL/or syr IV ONE (09:00)
[2023-04-02 09:17] LABS: Basophils # (auto) 0 10 ^3/uL (0-0.2); Basophils % (auto) 0.4 % (0.0-2.0); Eosinophils # (auto) 0.1 10 ^3/uL (0-0.8); Eosinophils % (auto) 2.4 % (0.0-7.0); Hemoglobin 11.7 g/dL (12.2-16.2); Lymphocytes # (auto) 2.3 10 ^3/uL (0.4-5.4); Lymphocytes % (auto) 52.2 % (10.0-50.0); Mean Corpuscular Hemoglobin 29.5 pg (28.0-32.0); Mean Corpuscular Hgb Conc. 32.5 g/dL (32.0-36.0); Mean Corpuscular Volume 90.7 fL (80.0-100.0); Monocytes # (auto) 0.3 10 ^3/uL (0-1.3); Monocytes % (auto) 7.7 % (0.0-12.0); Neutrophils # (auto) 1.7 10 ^3/uL (1.6-8.6); Neutrophils % (auto) 37.3 % (37.0-80.0); Nucleated Red Blood Cells % 0.2 %; Red Blood Cells 3.97 10^6/uL (4.0-5.20); Red Cell Distribution Width 14.8 % (11.8-14.3); White Blood Cell 4.5 10^3/uL (4.4-10.8)
[2023-04-02 09:53] LABS: Albumin 3.3 g/dL (3.4-5.0); Calcium 8.9 mg/dL (8.5-10.1)
[2023-04-02 09:55] LABS: Magnesium 2.5 mg/dL (1.6-2.6)
[2023-04-02 10:14] LABS: BUN/Creatinine Ratio 9.2 (10.0-20.0); Bilirubin, Total 0.4 mg/dL (0.2-1.0); Total Protein 7.4 g/dL (6.4-8.2)
[2023-04-02] MEDS ORDERED: MORPHINE SULFATE INJ 2 MG/ml SYRG IV PRN (13:00)
[2023-04-02] MEDS ORDERED: PANTOPRAZOLE 40 MG/10 ML VIAL INJ IV ONE (13:00)
[2023-04-02] MEDS ORDERED: NITROGLYCERIN 0.4 MG SL TAB SL PRN (13:00)
[2023-04-02] MEDS ORDERED: ALBUTEROL SULF 2.5 MG/0.5ML(0.5%) NEB SOLN NEB PRN (13:15)
[2023-04-02] MEDS ORDERED: KETOROLAC TROMETH 30 MG/ML 1ML VIAL IV ONE (13:15)
[2023-04-02 13:31] VITALS: BP 99/70; PULSE 71; RESP 18; O2SAT 98
[2023-04-02] MEDS ORDERED: LORazepam 0.5 MG TAB PO PRN (13:45)
[2023-04-02] MEDS: SODIUM CHLORIDE 0.9% 1,000 ML IV SCH (14:13)
[2023-04-02] MEDS: ONDANSETRON HCL 4 MG/2 ML VIAL IV PRN ×2 (14:14→22:52)
[2023-04-02] MEDS: SUCRALFATE 1 GM/10 ML ORAL SUSP PO SCH ×2 (14:14→22:52)
[2023-04-02] MEDS: GABAPENTIN 300 MG CAP PO SCH ×2 (14:14→22:52)
[2023-04-02 14:37] LABS: Cholesterol 112 mg/dL (< 200); HDL Cholesterol 49 mg/dL (40-59); LDL Cholesterol 53 mg/dL (< 100); Triglycerides 76 mg/dL (< 150)
[2023-04-02 17:16] LABS: Urine Bacteria NONE SEEN /hpf (None Seen); Urine Blood 1+ /uL (Negative); Urine Mucus FEW (None Seen); Urine Specific Gravity 1.015 (1.001-1.035); Urine WBC 1278 /hpf (0 - 5); Urine WBC Clumps PRESENT /hpf (None Seen)
[2023-04-02] MEDS ORDERED: KETOROLAC TROMETH 30 MG/ML 1ML VIAL IV PRN (18:00)
[2023-04-02 18:37] VITALS: O2SAT 99
[2023-04-02 19:36] VITALS: RESP 17; O2SAT 99
[2023-04-03] VITALS (7 sets, daily range): BP systolic 103–116; BP diastolic 51–54; PULSE 64–102; RESP 18–20; TEMP 98.4–98.5; O2SAT 96–100
[2023-04-03] MEDS: SODIUM CHLORIDE 0.9% 1,000 ML IV SCH ×3 (00:26→13:03)
[2023-04-03] MEDS: SUCRALFATE 1 GM/10 ML ORAL SUSP PO SCH ×3 (06:30→21:20)
[2023-04-03] MEDS: GABAPENTIN 300 MG CAP PO SCH ×3 (06:30→21:20)
[2023-04-03 06:40] LABS: Basophils # (auto) 0 10 ^3/uL (0-0.2); Basophils % (auto) 0.5 % (0.0-2.0); Eosinophils # (auto) 0.1 10 ^3/uL (0-0.8); Eosinophils % (auto) 2.2 % (0.0-7.0); Hematocrit 34.9 % (36.0-46.0); Hemoglobin 11.2 g/dL (12.2-16.2); Lymphocytes % (auto) 43.9 % (10.0-50.0); Mean Corpuscular Hemoglobin 29.5 pg (28.0-32.0); Mean Corpuscular Hgb Conc. 32.1 g/dL (32.0-36.0); Mean Corpuscular Volume 91.9 fL (80.0-100.0); Monocytes # (auto) 0.4 10 ^3/uL (0-1.3); Monocytes % (auto) 9.1 % (0.0-12.0); Neutrophils % (auto) 44.3 % (37.0-80.0); Nucleated Red Blood Cells % 0.1 %; White Blood Cell 4.6 10^3/uL (4.4-10.8)
[2023-04-03 07:01] LABS: Potassium 3.6 mmol/L (3.5-5.1)
[2023-04-03 07:15] LABS: BUN/Creatinine Ratio 10.9 (10.0-20.0); Bilirubin, Total 0.4 mg/dL (0.2-1.0); Calcium 8.2 mg/dL (8.5-10.1); Total Protein 6.7 g/dL (6.4-8.2)
[2023-04-03] MEDS ORDERED: PANTOPRAZOLE 40 MG TAB PO SCH (10:00)
[2023-04-03] MEDS: PANTOPRAZOLE 40 MG/10 ML VIAL INJ IV SCH (10:23)
[2023-04-03] MEDS: cefTRIAXone 1GM/50ML D5W 50 ML IV SCH (13:08)
[2023-04-03] MEDS ORDERED: ATOR40TA52 PO (14:59)
[2023-04-03] MEDS ORDERED: ONDA-188 PO (14:59)
[2023-04-03] MEDS ORDERED: ALBUTEROL SULF 2.5 MG/0.5ML(0.5%) NEB SOLN NEB PRN (16:00)
[2023-04-03] MEDS ORDERED: IPRATROPIUM BROM 0.5 MG/2.5ML INH SOL NEB PRN (16:00)
[2023-04-03] MEDS ORDERED: MELATONIN 5 MG TAB PO ONE (22:00)
[2023-04-04] VITALS (11 sets, daily range): BP systolic 101–127; BP diastolic 48–77; PULSE 67–86; RESP 12–20; TEMP 97.8–99.1; O2SAT 96–100
[2023-04-04] MEDS: SODIUM CHLORIDE 0.9% 1,000 ML IV SCH ×2 (00:22→15:18)
[2023-04-04] MEDS: ACETAMINOPHEN 325 MG TAB PO PRN (04:41)
[2023-04-04] MEDS: ONDANSETRON HCL 4 MG/2 ML VIAL IV PRN ×2 (04:41→09:18)
[2023-04-04 04:55] LABS: Basophils # (auto) 0 10 ^3/uL (0-0.2); Basophils % (auto) 0.9 % (0.0-2.0); Eosinophils # (auto) 0.2 10 ^3/uL (0-0.8); Eosinophils % (auto) 4.7 % (0.0-7.0); Hematocrit 34.8 % (36.0-46.0); Hemoglobin 11.2 g/dL (12.2-16.2); Lymphocytes # (auto) 1.4 10 ^3/uL (0.4-5.4); Lymphocytes % (auto) 35.1 % (10.0-50.0); Mean Corpuscular Hemoglobin 29.6 pg (28.0-32.0); Mean Corpuscular Hgb Conc. 32.2 g/dL (32.0-36.0); Mean Corpuscular Volume 92.1 fL (80.0-100.0); Monocytes # (auto) 0.4 10 ^3/uL (0-1.3); Monocytes % (auto) 9.2 % (0.0-12.0); Neutrophils % (auto) 50.1 % (37.0-80.0); Nucleated Red Blood Cells % 0.1 %; Red Blood Cells 3.78 10^6/uL (4.0-5.20); Red Cell Distribution Width 15.2 % (11.8-14.3)
[2023-04-04 05:08] LABS: BUN/Creatinine Ratio 5.7 (10.0-20.0); Calcium 8.5 mg/dL (8.5-10.1); Potassium 3.8 mmol/L (3.5-5.1)
[2023-04-04 05:12] LABS: INR 1.05 (0.9-1.15); Partial Thromboplastin Time 29.4 SEC (24.5-34.5)
[2023-04-04] MEDS: SUCRALFATE 1 GM/10 ML ORAL SUSP PO SCH ×3 (05:18→21:12)
[2023-04-04] MEDS: GABAPENTIN 300 MG CAP PO SCH ×3 (05:18→21:13)
[2023-04-04] MEDS: cefTRIAXone 1GM/50ML D5W 50 ML IV SCH (09:17)
[2023-04-04] MEDS ORDERED: LORazepam 2MG/ML-1ML VIAL IV ONE (11:00)
[2023-04-04] MEDS: PANTOPRAZOLE 40 MG/10 ML VIAL INJ IV SCH (11:27)
[2023-04-04] MEDS ORDERED: LIDOCAINE VISCOUS 2% 15ML UD ONE (15:50)
[2023-04-04] MEDS ORDERED: SODIUM CHLORIDE LOCK 10 ML ONE (15:51)
[2023-04-04] MEDS ORDERED: fentaNYL CITRATE 100 MCG/2 ML VL ONE (15:51)
[2023-04-04] MEDS: MIDAZOLAM HCL 5 MG/ML-1ML VIAL ONE ×4 (17:52→18:01)
[2023-04-04] MEDS: diphenhdrAMINE HCL 50 MG/1 ML VL ONE ×2 (17:52→17:54)
[2023-04-04] MEDS: OXYBUTYNIN CHL 5 MG TAB PO SCH (21:12)
[2023-04-04] MEDS: traZODone HCL 50 MG TAB PO SCH (21:13)
[2023-04-05] VITALS (9 sets, daily range): BP systolic 87–116; BP diastolic 42–62; PULSE 62–96; RESP 16–18; TEMP 98–98.9; O2SAT 95–99
[2023-04-05] MEDS: SODIUM CHLORIDE 0.9% 1,000 ML IV SCH ×2 (03:00→16:20)
[2023-04-05] MEDS: SUCRALFATE 1 GM/10 ML ORAL SUSP PO SCH ×4 (06:23→22:28)
[2023-04-05] MEDS: GABAPENTIN 300 MG CAP PO SCH ×3 (06:23→22:28)
[2023-04-05] MEDS: cefTRIAXone 1GM/50ML D5W 50 ML IV SCH (09:09)
[2023-04-05] MEDS ORDERED: HYDROCORTISONE ACET 25 MG RECTAL SUPP PR ONE (10:30)
[2023-04-05] MEDS ORDERED: LACTULOSE 20Gm/30ML SOLN PO ONE (10:30)
[2023-04-05] MEDS: PANTOPRAZOLE 40 MG/10 ML VIAL INJ IV SCH (10:32)
[2023-04-05] MEDS: OXYBUTYNIN CHL 5 MG TAB PO SCH ×2 (10:32→22:29)
[2023-04-05] MEDS: traZODone HCL 50 MG TAB PO SCH (22:29)
[2023-04-06] VITALS (7 sets, daily range): BP systolic 104–144; BP diastolic 51–65; PULSE 57–92; RESP 16–20; TEMP 97.7–98.7; O2SAT 98
[2023-04-06] MEDS: ACETAMINOPHEN 325 MG TAB PO PRN (01:35)
[2023-04-06] MEDS ORDERED: traMADol HCL 50 MG TAB PO PRN (04:45)
[2023-04-06] MEDS: SODIUM CHLORIDE 0.9% 1,000 ML IV SCH (05:55)
[2023-04-06] MEDS: SUCRALFATE 1 GM/10 ML ORAL SUSP PO SCH ×3 (06:28→17:00)
[2023-04-06] MEDS: GABAPENTIN 300 MG CAP PO SCH ×2 (06:29→14:11)
[2023-04-06] MEDS: cefTRIAXone 1GM/50ML D5W 50 ML IV SCH (08:03)
[2023-04-06] MEDS: PANTOPRAZOLE 40 MG/10 ML VIAL INJ IV SCH (09:11)
[2023-04-06] MEDS: OXYBUTYNIN CHL 5 MG TAB PO SCH (09:11)
[2023-04-06] MEDS ORDERED: MILK OF MAGNESIA 30ML SUSP PO ONE (10:15)
[2023-04-06] MEDS ORDERED: OXYB5TAB10 PO (12:24)
[2023-04-06] MEDS ORDERED: TRAZ-227 PO (12:24)
[2023-04-06] MEDS ORDERED: CEPH250C PO (12:24)
[2023-04-06] MEDS ORDERED: PANT40TA2 PO (12:37)
[2023-04-06] MEDS ORDERED: SUCR1SUS26 PO (12:37)
== END 2023-04-06 17:32 | disposition home or self-care (01) | DRG 377 ==
LOC: ER 08:19 → TELE 12:53 → TELE-CENTR 04-03 10:45
PROVIDERS: ADMIT Nurse Practitioner Acute Care; ATTEND Nurse Practitioner Acute Care
PROC: 0DB68ZX Excision of Stomach, Via Natural or Artificial Opening Endoscopic, Diagnostic (ICD-10-PCS; 2023-04-04)
PROC: 0DB98ZX Excision of Duodenum, Via Natural or Artificial Opening Endoscopic, Diagnostic (ICD-10-PCS; principal; 2023-04-04 17:37)
DX: K29.91 Gastroduodenitis, unspecified, with bleeding (principal); J96.21 Acute and chronic respiratory failure with hypoxia; E44.1 Mild protein-calorie malnutrition; G45.9 Transient cerebral ischemic attack, unspecified; N30.90 Cystitis, unspecified without hematuria; K25.4 Chronic or unspecified gastric ulcer with hemorrhage; E66.01 Morbid (severe) obesity due to excess calories; E78.5 Hyperlipidemia, unspecified; I10 Essential (primary) hypertension; F41.9 Anxiety disorder, unspecified; G47.00 Insomnia, unspecified; K64.4 Residual hemorrhoidal skin tags; K64.8 Other hemorrhoids; J44.9 Chronic obstructive pulmonary disease, unspecified; K44.9 Diaphragmatic hernia without obstruction or gangrene; K21.9 Gastro-esophageal reflux disease without esophagitis; Z68.33 Body mass index [BMI] 33.0-33.9, adult; Z86.73 Personal history of transient ischemic attack (TIA), and cerebral infarction without residual deficits; Z87.891 Personal history of nicotine dependence; Z88.5 Allergy status to narcotic agent; Z88.8 Allergy status to other drugs, medicaments and biological substances; Z91.018 Allergy to other foods; Z98.51 Tubal ligation status
CPT/HCPCS: 36415; 43239; 71045; 74176; 80048; 80053; 80061; 81001; 82962; 83036; 83690; 83735; 84443; 85025; 85610; 85730; 86850; 86900; 86901; 87086; 87088; 87186; 93005; 94640; 96374; 96375; C9113; G0378; J0696; J1885; J2250; J2405

== ENCOUNTER 2024-03-18 11:26 | Inpatient (IN) | payer OTHER ==
[~2024-03-18] VITALS: Ht 160 cm; Wt 78.7 kg
[~2024-03-18 11:26] MED LIST changes: -ASPI-378 PO; +ATOR40TA52 PO; +CEPH250C PO; +ONDA-188 PO; +OXYB5TAB14 PO; +SUCR1SUS26 PO; +TRAZ-227 PO
[2024-03-18 12:16] LABS: Basophils # (auto) 0 10 ^3/uL (0-0.2); Basophils % (auto) 0.6 % (0.0-2.0); Eosinophils # (auto) 0.1 10 ^3/uL (0-0.8); Eosinophils % (auto) 2.5 % (0.0-7.0); Hematocrit 36.8 % (36.0-46.0); Lymphocytes # (auto) 2.1 10 ^3/uL (0.4-5.4); Lymphocytes % (auto) 41.9 % (10.0-50.0); Mean Corpuscular Hemoglobin 29.2 pg (28.0-32.0); Mean Corpuscular Hgb Conc. 32.4 g/dL (32.0-36.0); Mean Corpuscular Volume 89.9 fL (80.0-100.0); Monocytes # (auto) 0.3 10 ^3/uL (0-1.3); Monocytes % (auto) 6.8 % (0.0-12.0); Neutrophils # (auto) 2.4 10 ^3/uL (1.6-8.6); Neutrophils % (auto) 48.2 % (37.0-80.0); Red Cell Distribution Width 14.5 % (11.8-14.3); White Blood Cell 4.9 10^3/uL (4.4-10.8)
[2024-03-18 12:39] LABS: Alanine Aminotransferase 12 U/L (7-40); Albumin 4.2 g/dL (3.2-4.8); Alkaline Phosphatase 98 U/L (46-116); Anion Gap 8 (5-15); Aspartate Aminotransferase 18 U/L (13-40); BUN/Creatinine Ratio 16.7 (10.0-20.0); Bilirubin, Total 0.8 mg/dL (0.2-1.0); Blood Urea Nitrogen 10 mg/dL (9-23); Carbon Dioxide 30 mmol/L (20-30); Chloride 102 mmol/L (98-107); Glucose 102 mg/dL (74-106); Lipase 20 U/L (12-53); Potassium 3.9 mmol/L (3.5-5.1); Sodium 140 mmol/L (136-145); Total Protein 7.3 g/dL (5.7-8.2)
[2024-03-18 12:59] LABS: Urine Bacteria None Seen /hpf (None Seen)
[2024-03-18 13:05] LABS: Urine Blood Negative /uL (Negative); Urine Clarity Clear (Clear); Urine Color Yellow (Yellow); Urine Mucus FEW (None Seen); Urine Protein, UAD Negative (Negative); Urine Specific Gravity 1.012 (1.001-1.035); Urine Urobilinogen Normal (Negative); Urine WBC 2 /hpf (0 - 5)
[2024-03-18 13:38] VITALS: PULSE 78; RESP 21; O2SAT 94
[2024-03-18] MEDS: SUCRALFATE 1 GM TAB PO ONE (13:41)
[2024-03-18] MEDS: PANTOPRAZOLE 40 MG TAB PO ONE (13:41)
[2024-03-18 15:20] VITALS: PULSE 85; RESP 15; O2SAT 97
[2024-03-18] MEDS: HYDROcodone-ACET 5/325MG TAB PO ONE (16:38)
[2024-03-18] MEDS ORDERED: PATIENTS OWN MEDICATION (Lorazepam 1 TAB) PO PRN (17:00)
[2024-03-18] MEDS ORDERED: NITROGLYCERIN 0.4 MG SL TAB SL PRN (17:00)
[2024-03-18] MEDS: DICYCLOMINE HCL (10MG/ML) 2 ML AMPULE IM ONE (19:15)
[2024-03-18] MEDS: SODIUM CHLORIDE 0.9% 1,000 ML IV SCH (19:16)
[2024-03-18] MEDS: SUCRALFATE 1 GM/10 ML ORAL SUSP PO SCH (19:24)
[2024-03-18 20:00] VITALS: PULSE 73; RESP 13; O2SAT 96
[2024-03-18] MEDS: HYDROcodone-ACET 5/325MG TAB PO PRN (21:14)
[2024-03-18 21:50] VITALS: BP 150/70; PULSE 73; RESP 19; TEMP 98.3; O2SAT 97
[2024-03-18] MEDS: traZODone HCL 50 MG TAB PO SCH (23:07)
[2024-03-18] MEDS: OXYBUTYNIN CHL 5 MG TAB PO SCH (23:08)
[2024-03-18] MEDS: LORazepam 0.5 MG TAB PO PRN (23:08)
[2024-03-18] MEDS: ONDANSETRON HCL 4 MG/2 ML VIAL IV PRN (23:53)
[2024-03-19] VITALS (7 sets, daily range): BP systolic 134–148; BP diastolic 64–72; PULSE 65–79; RESP 16–19; TEMP 97.8–98.8; O2SAT 93–97
[2024-03-19] MEDS: DICYCLOMINE HCL 10 MG CAP PO SCH (05:38)
[2024-03-19] MEDS: GABAPENTIN 300 MG CAP PO SCH (05:38)
[2024-03-19] MEDS ORDERED: DICYCLOMINE HCL (10MG/ML) 2 ML AMPULE IM SCH (06:00)
[2024-03-19] MEDS: CITALOPRAM HYDROBR 20 MG TAB PO SCH (08:38)
[2024-03-19] MEDS: ATORVASTATIN 20 MG TAB PO SCH (08:39)
[2024-03-19 11:33] LABS: Basophils # (auto) 0 10 ^3/uL (0-0.2); Basophils % (auto) 0.5 % (0.0-2.0); Eosinophils # (auto) 0.1 10 ^3/uL (0-0.8); Hematocrit 35.2 % (36.0-46.0); Hemoglobin 11.4 g/dL (12.2-16.2); Lymphocytes # (auto) 1.4 10 ^3/uL (0.4-5.4); Lymphocytes % (auto) 33.3 % (10.0-50.0); Mean Corpuscular Hgb Conc. 32.3 g/dL (32.0-36.0); Mean Corpuscular Volume 89.7 fL (80.0-100.0); Monocytes # (auto) 0.3 10 ^3/uL (0-1.3); Neutrophils # (auto) 2.4 10 ^3/uL (1.6-8.6); Neutrophils % (auto) 56.2 % (37.0-80.0); Red Blood Cells 3.92 10^6/uL (4.0-5.20); Red Cell Distribution Width 14.8 % (11.8-14.3); White Blood Cell 4.3 10^3/uL (4.4-10.8)
[2024-03-19 12:15] LABS: Alanine Aminotransferase 10 U/L (7-40); Albumin 3.8 g/dL (3.2-4.8); Alkaline Phosphatase 82 U/L (46-116); Anion Gap 6 (5-15); Aspartate Aminotransferase 25 U/L (13-40); BUN/Creatinine Ratio 11.5 (10.0-20.0); Bilirubin, Total 0.6 mg/dL (0.2-1.0); Blood Urea Nitrogen 6 mg/dL (9-23); Calcium 9.2 mg/dL (8.7-10.4); Carbon Dioxide 30 mmol/L (20-30); Chloride 105 mmol/L (98-107); Glucose 84 mg/dL (74-106); Potassium 3.6 mmol/L (3.5-5.1); Sodium 141 mmol/L (136-145); Total Protein 6.9 g/dL (5.7-8.2)
[2024-03-19] MEDS: PANTOPRAZOLE 40 MG TAB PO ONE (15:28)
[2024-03-19] MEDS: ZOLPIDEM TARTRATE 5 MG TAB PO SCH (21:58)
[2024-03-19] MEDS: DOCUSATE SOD 100 MG CAP PO PRN (22:11)
[2024-03-20] VITALS (8 sets, daily range): BP systolic 109–146; BP diastolic 55–90; PULSE 60–87; RESP 12–19; TEMP 97.8–99.1; O2SAT 94–100
[2024-03-20] MEDS: PANTOPRAZOLE 40 MG TAB PO SCH (05:13)
[2024-03-20 06:19] LABS: Basophils # (auto) 0 10 ^3/uL (0-0.2); Basophils % (auto) 0.6 % (0.0-2.0); Eosinophils # (auto) 0.3 10 ^3/uL (0-0.8); Hemoglobin 11.9 g/dL (12.2-16.2); Lymphocytes # (auto) 1.6 10 ^3/uL (0.4-5.4); Lymphocytes % (auto) 34.8 % (10.0-50.0); Mean Corpuscular Hemoglobin 29.2 pg (28.0-32.0); Mean Corpuscular Hgb Conc. 32.3 g/dL (32.0-36.0); Mean Corpuscular Volume 90.3 fL (80.0-100.0); Monocytes # (auto) 0.5 10 ^3/uL (0-1.3); Monocytes % (auto) 10.1 % (0.0-12.0); Neutrophils # (auto) 2.2 10 ^3/uL (1.6-8.6); Neutrophils % (auto) 48.5 % (37.0-80.0); Red Blood Cells 4.09 10^6/uL (4.0-5.20); Red Cell Distribution Width 14.8 % (11.8-14.3); White Blood Cell 4.5 10^3/uL (4.4-10.8)
[2024-03-20 06:31] LABS: INR 1.07 (0.9-1.15); Partial Thromboplastin Time 28.6 SEC (24.5-34.5); Prothrombin Time 11.3 sec (9.3-11.8)
[2024-03-20 06:32] LABS: Anion Gap 6 (5-15); Carbon Dioxide 31 mmol/L (20-30); Chloride 108 mmol/L (98-107); Potassium 3.5 mmol/L (3.5-5.1); Sodium 145 mmol/L (136-145)
[2024-03-20 06:33] LABS: Calcium 9.2 mg/dL (8.7-10.4)
[2024-03-20 06:38] LABS: Glucose 89 mg/dL (74-106)
[2024-03-20 06:44] LABS: BUN/Creatinine Ratio 9.6 (10.0-20.0); Blood Urea Nitrogen < 5 mg/dL (9-23)
[2024-03-20] MEDS ORDERED: SODIUM CHLORIDE LOCK 10 ML ONE (09:07)
[2024-03-20] MEDS ORDERED: LIDOCAINE VISCOUS 2% 15ML UD ONE (09:07)
[2024-03-20] MEDS ORDERED: diphenhdrAMINE HCL 50 MG/1 ML VL ONE (09:08)
[2024-03-20] MEDS: fentaNYL CITRATE 100 MCG/2 ML VL ONE (09:34)
[2024-03-20] MEDS: MIDAZOLAM HCL 5 MG/ML-1ML VIAL ONE (09:34)
[2024-03-21 01:00] VITALS: BP 130/60; PULSE 67; RESP 18; TEMP 97; O2SAT 97
[2024-03-21 05:00] VITALS: BP 131/73; PULSE 66; RESP 18; TEMP 98.2; O2SAT 96
[2024-03-21 08:00] VITALS: PULSE 75; RESP 16; O2SAT 95
[2024-03-21] MEDS: LACTULOSE 20Gm/30ML SOLN PO ONE (12:14)
[2024-03-21 13:00] VITALS: BP 122/58; PULSE 68; RESP 14; TEMP 98.1; O2SAT 98
[2024-03-21 16:28] VITALS: BP 120/59; PULSE 66; RESP 17; TEMP 98.1; O2SAT 98
[2024-03-21] MEDS ORDERED: SUCR1SUS26 PO (16:40)
[2024-03-21] MEDS ORDERED: PANT40T PO (16:40)
[2024-03-21] MEDS ORDERED: PANTOPRAZOLE 40 MG TAB PO SCH (22:00)
[2024-03-22 15:11] LABS: Hepatitis C Antibody Negative (Negative)
[2024-03-23 03:40] LABS: Hepatitis B Surface Antigen Negative (Negative)
== END 2024-03-21 17:30 | disposition home or self-care (01) | DRG 384 ==
LOC: ER 11:26 → OVERFLOW 17:06 → WEST WING 21:34
PROVIDERS: ADMIT Internal Medicine Geriatric Medicine; ATTEND Specialist
PROC: 0DB68ZX Excision of Stomach, Via Natural or Artificial Opening Endoscopic, Diagnostic (ICD-10-PCS; principal; 2024-03-20 09:19)
DX: K26.9 Duodenal ulcer, unspecified as acute or chronic, without hemorrhage or perforation (principal); K22.10 Ulcer of esophagus without bleeding; K29.70 Gastritis, unspecified, without bleeding; K57.30 Diverticulosis of large intestine without perforation or abscess without bleeding; I10 Essential (primary) hypertension; F41.9 Anxiety disorder, unspecified; K21.9 Gastro-esophageal reflux disease without esophagitis; J44.89 Other specified chronic obstructive pulmonary disease; E78.5 Hyperlipidemia, unspecified; M54.30 Sciatica, unspecified side; K44.9 Diaphragmatic hernia without obstruction or gangrene; E86.0 Dehydration; Z82.49 Family history of ischemic heart disease and other diseases of the circulatory system; Z86.73 Personal history of transient ischemic attack (TIA), and cerebral infarction without residual deficits; Z88.6 Allergy status to analgesic agent; Z91.013 Allergy to seafood; Z87.891 Personal history of nicotine dependence; Z83.3 Family history of diabetes mellitus; Z80.0 Family history of malignant neoplasm of digestive organs; Z82.0 Family history of epilepsy and other diseases of the nervous system; Z82.5 Family history of asthma and other chronic lower respiratory diseases; Z81.8 Family history of other mental and behavioral disorders; Z82.62 Family history of osteoporosis; Z80.8 Family history of malignant neoplasm of other organs or systems; Z80.3 Family history of malignant neoplasm of breast; Z80.1 Family history of malignant neoplasm of trachea, bronchus and lung; Z80.41 Family history of malignant neoplasm of ovary; Z82.3 Family history of stroke
CPT/HCPCS: 36415; 43239; 71045; 74176; 80048; 80053; 81001; 83605; 83690; 83880; 84484; 85025; 85610; 85730; 86803; 87340; 93005; G0378; J2250; J2405